=== PATIENT | male | born 1950 | race Caucasian/White ===

== ENCOUNTER 2017-02-10 14:22 | Inpatient (IN) | payer MEDICARE, BC ==
[~2017-02-10] VITALS: Ht 175.3 cm; Wt 82.3 kg
[~2017-02-10 14:22] MED LIST: HYDR-2768 PO; NIAC500 PO; TELM40 PO; TRIL135C PO
--- NOTE | 2017-02-15 12:40 | MH ---
cc: Yovana QUEEN M.D. DATE OF ADMISSION 02/17/2017 ADMITTING DIAGNOSIS Severe osteoarthritic degeneration right knee now being admitted for right total knee arthroplasty. ADMISSION HISTORY AND PHYSICAL This pleasant 67-year-old diabetic male is being admitted today for right total knee arthroplasty due to severe painful osteoarthritic degeneration right knee. OTHER PAST HISTORY He chronic neck and back pain and sees a chiropractor for his neck with some weakness the left upper extremity. He also has diabetes and hypertension. CURRENT MEDICATIONS Include: 1. Telmisartan 2. Niacin 3. Glyburide 4. Metformin 5. Hydrochlorothiazide 6. Aleve which was stopped before surgery. PREVIOUS SURGERIES Includes left knee arthroscopy several years ago. REVIEW OF SYSTEMS Noncontributory FAMILY HISTORY Noncontributory SOCIAL HISTORY He does not smoke and he does drink some alcohol. ALLERGIES He has no known allergies. PHYSICAL EXAMINATION We find a 67-year male well-developed, well-nourished oriented x3 complaining of pain in his right knee. VITAL SIGNS: Blood pressure 138/90, pulse 62 and regular, respirations 28, temperature 97.6, pulse oximetry 96% on room air. HEENT: Eyes PERRL, EOMI. Ears, nose, mouth clear. NECK: Supple. LUNGS: Clear. HEART: Regular rate. ABDOMEN: Soft. Positive bowel sounds, nontender. EXTREMITIES: Reveal his right knee to have crepitance on range of motion, some genu varus deformity noted. He is otherwise neurovascularly to his toes. IMPRESSION AT THIS TIME Severe painful osteoarthritic degeneration right knee. PLAN Admission for right total knee arthroplasty today. The patient given prescription for postoperative pain and anticoagulation control in the office. He plans on going home after his stay in the hospital and he understands he is to use Hibiclens scrub and Bactroban preoperatively. MD ZOE Coronel/LOWELL /12:16 PM /12:25 PM
[2017-02-16] MEDS ORDERED: GLYB2.5T3 PO (09:30)
[2017-02-16] MEDS ORDERED: FENO105T4 PO (09:30)
[2017-02-16] MEDS ORDERED: TELM1TAB PO (09:30)
[2017-02-16] MEDS ORDERED: METF500T PO (09:30)
[2017-02-16] MEDS ORDERED: NIAC1TAB5 PO (09:30)
[2017-02-16] MEDS ORDERED: HYDR25TA5 PO (09:30)
[2017-02-17] VITALS: BP 162/93; PULSE 91; RESP 20; TEMP 97.7; O2SAT 100
[2017-02-17] MEDS ORDERED: SODIUM CHLORID 0.9% 500 ML IV PRN (05:30)
[2017-02-17] MEDS ORDERED: POVIDONE IODINE 5% (ANTISEPSIS KIT) 4 APPLICATIONS EACH NARE PRN (05:30)
[2017-02-17] MEDS ORDERED: METOPROLOL TARTRATE 25 MG TAB PO PRN (05:30)
[2017-02-17] MEDS ORDERED: CHLORHEXIDINE GLUCONATE 2 % 1 PACK (2 CLOTHS) TOPICAL PRN (05:30)
[2017-02-17] MEDS ORDERED: LACTATED RINGER'S 1000 ML IV PRN (05:30)
[2017-02-17] MEDS ORDERED: INSULIN HUMAN REGULAR 1,000 UNITS/10 ML VIAL SQ PRN (05:30)
[2017-02-17 06:00] VITALS: BP 159/98; PULSE 76; RESP 18; TEMP 98; O2SAT 99
[2017-02-17] MEDS: VANCOMYCIN 1000 MG/NS 250 ML (for <70 kg) IV SCH ×4 (06:11→06:48)
[2017-02-17] MEDS ORDERED: ceFAZolin 2 GM PREMIX 50 ML IV SCH (07:00)
[2017-02-17] MEDS ORDERED: BUPIVACAINE LIPOSO PF 1.3% INJ 20 ML, BUPIVACAINE PF 0.25% INJ 20 ML in SODIUM CHLORIDE... P-ARTICULR SCH (07:00)
[2017-02-17] MEDS ORDERED: ceFAZolin INJ 1,000 MG VIAL ONE (07:03)
[2017-02-17] MEDS ORDERED: ACETAMINOPHEN 1000 MG/100 ML VIAL IV ONE (07:20)
[2017-02-17] MEDS ORDERED: FAMOTIDINE 20 MG/2 ML VIAL ONE (07:21)
[2017-02-17] MEDS ORDERED: DEXAMETHASONE SOD PHOS 4 MG/ML VIAL ONE (07:21)
[2017-02-17] MEDS ORDERED: SUGAMMADEX SODIUM 200 MG/2 ML VIAL IV PUSH ONE ×2 (07:21)
[2017-02-17] MEDS ORDERED: ARTIFICIAL TEARS OPTH OINT 3.5 APPLIC/3.5 GM TUBO ONE (07:21)
--- NOTE | 2017-02-17 07:59 | HHI.FF ---
Face to Face Verification Diagnosis: (1) Status post total right knee replacement Physical Therapy Gait training Knee: Total knee, Protocol: Right, Full weight bearing Nursing RN: 3 days/week x 2 weeks Nursing: Thai teaching, Dressing changes Dressing Changes: Daily dressing change, 4x4s, Gauze, Paper tape I have seen patient Santi Cummings on 02/17/17. My clinical findings support the need for the requested home health care services because: Limited ability to care for self High risk of falls I certify that my clinical findings support that this patient is homebound because: Unsafe to leave home unassisted Yovana Bobby MD Feb 17, 2017 07:59
[2017-02-17] MEDS ORDERED: NALOXONE HCL 0.4 MG/ML AMP IV PRN ×2 (08:00)
[2017-02-17] MEDS ORDERED: Post-op Orders (for Pharmacy) MISC XX ONE (08:00)
[2017-02-17] MEDS ORDERED: CPMMACHINE (08:00)
[2017-02-17] MEDS ORDERED: SODIUM CHLORIDE 0.9% FLUSH 5 ML FLUSH IVF PRN (08:00)
[2017-02-17] MEDS ORDERED: diphenhydrAMINE HCL 50 MG/ML VIAL IV PRN (08:00)
[2017-02-17] MEDS ORDERED: ACETAMINOPHEN 325 MG TAB PO PRN (08:00)
[2017-02-17] MEDS ORDERED: MISC-163 (08:00)
[2017-02-17] MEDS ORDERED: TRANEXAMIC ACID INJ 807 MG in SODIUM CHLORIDE 0.9% INJ 100 ML IV SCH ×2 (08:00→11:00)
[2017-02-17] MEDS ORDERED: ONDANSETRON HCL 4 MG/2 ML VIAL IVP PRN (08:00)
[2017-02-17] MEDS ORDERED: TEMAZEPAM 15 MG CAP PO PRN (08:00)
[2017-02-17] MEDS ORDERED: WALKER WHEELS/F1 MIS (08:00)
[2017-02-17] MEDS ORDERED: TRANEXAMIC ACID INJ 0 MG in SODIUM CHLORIDE 0.9% INJ 100 ML IV SCH (08:00)
[2017-02-17] MEDS ORDERED: TELMISARTAN 40 MG PO SCH (09:00)
[2017-02-17] MEDS ORDERED: FENOFIBRIC ACID 135 MG PO SCH (09:00)
[2017-02-17] MEDS: NIACIN 500 MG EXTENDED RELEASE TAB PO SCH ×3 (09:00→19:46)
[2017-02-17] MEDS ORDERED: HYDROCHLOROTHIAZIDE 25 MG TAB PO SCH (09:00)
[2017-02-17] MEDS: HYDROCHLOROTHIAZIDE 25 MG TAB PO SCH (09:00)
[2017-02-17] MEDS: FENOFIBRATE 145 MG TAB PO SCH (09:00)
[2017-02-17] MEDS: LOSARTAN 50 MG TAB PO SCH (10:00)
[2017-02-17] MEDS ORDERED: DO NOT ADM ANY ANTICOAGULANT DRUGS PRN (10:46)
[2017-02-17] MEDS: MORPHINE SULFATE 30 MG/30 ML PCA IV SCH (10:55)
[2017-02-17] MEDS ORDERED: MIDAZOLAM HCL 2 MG/2 ML VIAL ONE (11:01)
[2017-02-17] MEDS ORDERED: fentaNYL CITRATE 250 MCG/5 ML AMP ONE (11:02)
[2017-02-17] MEDS: LACTATED RINGER'S 1000 ML INJ 1,000 ML IV SCH ×2 (11:06→19:46)
--- NOTE | 2017-02-17 11:41 | RADRPT ---
EXAM DATE/TIME: 02/17/2017 12:23 [facility] COMPARISON: No previous studies available for comparison. INDICATIONS : Post-op right knee. MEDICAL HISTORY : None. SURGICAL HISTORY : None. ENCOUNTER: Initial ACUITY: 1 day PAIN SCORE: 0/10 LOCATION: Right Knee. FINDINGS: AP and lateral views of the knee following arthroplasty reveals a prosthesis in anatomic alignment. F racture is not appreciated. Surgical drain is evident CONCLUSION: Status post total knee arthroplasty. Brendan Carrasco MD FACR Board Certified Radiologist. This report was verified electronically.
[2017-02-17] MEDS ORDERED: PHENYLEPH/NS 1000 MCG/10 ML SYR IV ONE (12:00)
[2017-02-17] MEDS ORDERED: NEOSTIGMINE 3 MG/3 ML SYR IV ONE (12:00)
[2017-02-17] MEDS ORDERED: PROPOFOL 200 MG/20 ML AMP IV ONE (12:00)
[2017-02-17 13:30] VITALS: BP 157/84; PULSE 94; RESP 16; TEMP 97.7; O2SAT 98
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
[2017-02-17] MEDS: PCA - TOTAL MG MORPHINE DELIVERED PER SHIFT SCH ×2 (14:00→22:00)
[2017-02-17 16:00] VITALS: BP 148/88; PULSE 87; RESP 16; TEMP 97.5; O2SAT 96
[2017-02-17] MEDS: glyBURIDE 2.5 MG TAB PO SCH (16:57)
[2017-02-17] MEDS: metFORMIN HCL 500 MG TAB PO SCH (17:02)
[2017-02-17 19:05] VITALS: O2SAT 95
[2017-02-17] MEDS: SODIUM CHLORIDE 0.9% FLUSH 5 ML FLUSH IVF SCH (19:46)
[2017-02-17 20:00] VITALS: BP 163/88; PULSE 82; RESP 22; TEMP 97.7; O2SAT 100
[2017-02-17] MEDS ORDERED: NIACIN 1000 MG PO SCH (21:00)
[2017-02-18] VITALS (7 sets, daily range): BP systolic 143–177; BP diastolic 82–98; PULSE 79–94; RESP 16–20; TEMP 96.6–99.9; O2SAT 96–100
[2017-02-18] MEDS: ACETAMINOPHEN/HYDROcodone 325 MG/7.5 MG TAB PO PRN ×5 (00:01→18:38)
[2017-02-18] MEDS: CHLORHEXIDINE GLUCONATE 4% SOLN 120 ML BTL TOPICAL SCH (01:55)
[2017-02-18 05:18] LABS: HEMATOCRIT 31.5 % (39.0-51.0); REVIEW FLAG FINAL
[2017-02-18] MEDS: PCA - TOTAL MG MORPHINE DELIVERED PER SHIFT SCH ×3 (06:00→21:38)
[2017-02-18] MEDS: glyBURIDE 2.5 MG TAB PO SCH ×2 (06:09→16:29)
[2017-02-18] MEDS: LACTATED RINGER'S 1000 ML INJ 1,000 ML IV SCH (08:55)
[2017-02-18] MEDS: FENOFIBRATE 145 MG TAB PO SCH (08:58)
[2017-02-18] MEDS: SODIUM CHLORIDE 0.9% FLUSH 5 ML FLUSH IVF SCH ×2 (09:00→21:00)
[2017-02-18] MEDS: metFORMIN HCL 500 MG TAB PO SCH ×2 (09:00→16:29)
[2017-02-18] MEDS: LOSARTAN 50 MG TAB PO SCH (09:00)
[2017-02-18] MEDS: NIACIN 500 MG EXTENDED RELEASE TAB PO SCH ×3 (09:00→21:36)
[2017-02-18] MEDS: HYDROCHLOROTHIAZIDE 25 MG TAB PO SCH (09:00)
--- NOTE | 2017-02-18 09:15 | PD.ORT.PN ---
Subjective Subjective Remarks pt comfortable as far as knee is concerned but having pain again in left upper extremity and neck. Dr Winkler consulted. Objective Vitals Vital Signs Date Time Temp Pulse Resp B/P Pulse Ox O2 Delivery O2 Flow Rate FiO2 02/18/17 08:50 98.1 79 18 143/82 96 02/18/17 06:00 17 02/18/17 04:00 98.0 82 16 165/89 100 02/18/17 00:00 98.7 91 20 162/93 100 02/17/17 22:00 17 02/17/17 20:00 97.7 82 22 163/88 100 02/17/17 19:43 100 Nasal Cannula 2.00 02/17/17 19:05 95 Nasal Cannula 3.00 02/17/17 16:00 97.5 87 16 148/88 96 02/17/17 13:30 97.7 94 16 157/84 98 02/17/17 13:00 85 13 145/88 99 Nasal Cannula 2 02/17/17 12:30 98.3 99 15 149/87 99 Nasal Cannula 2 02/17/17 12:00 91 13 142/90 99 Nasal Cannula 2 02/17/17 11:45 93 14 139/86 99 Nasal Cannula 2 02/17/17 11:30 96 13 146/87 99 Nasal Cannula 2 02/17/17 11:15 97 12 159/97 99 Nasal Cannula 2 02/17/17 11:00 95 18 128/78 100 Nasal Cannula 2 02/17/17 10:55 12 02/17/17 10:45 99.2 102 15 124/70 98 Nasal Cannula 3 I/O 02/17/17 02/17/17 02/17/17 02/18/17 02/18/17 02/18/17 07:00 15:00 23:00 07:00 15:00 23:00 Intake Total 1790 ml 1257 ml 801 ml Output Total 1000 ml 300 ml 725 ml Balance 790 ml 957 ml 76 ml Intake Oral 290 ml 480 ml 240 ml IV Total 777 ml 561 ml Other 1500 ml Output Urine Total 800 ml 300 ml 725 ml Estimated Blood Loss 200 ml # Voids 3 # Bowel Movements 0 0 0 Result Diagram: 02/18/17 0456 Objective Remarks dressing dry and intact. NV intact to lower extremities. Assessment & Plan Ortho Post Op Day #: 1 Problem List: Assessment and Plan OOB,PT, MRI of neck per neurosurgery. Yovana Bobby MD Feb 18, 2017 09:15
--- NOTE | 2017-02-18 10:30 | RADRPT ---
EXAM DATE/TIME: 02/18/2017 09:36 [facility] COMPARISON: No previous studies available for comparison. INDICATIONS : Radiculopathy. Left upper extremity pain. MEDICAL HISTORY : Hypertension. Diabetes mellitus type 2. Hypercholesterolemia. SURGICAL HISTORY : Rotator cuff, right. ENCOUNTER: Initial ACUITY: > 1 year PAIN SCORE: 4/10 LOCATION: [facility] TECHNIQUE: Multiplanar, multisequence MRI examination of the cervical spine was performed. FINDINGS: VERTEBRAE: Normal vertebral body height. Homogeneous marrow signal. ALIGNMENT: There is loss of the normal cervical lordosis with kyphosis identified within the upper cervical spin e. There is narrowing of the cervical spine from the level of C3-C6. CORD: Normal configuration and signal. POST FOSSA: The cerebellar tonsils are normal in position. C2-C3: The thecal sac has a normal configuration. There is no evidence of disc herniation or spinal canal s tenosis. . Moderate right-sided facet degenerative change causing moderate right-sided neuroforamina l narrowing. C3-C4: There is disc desiccation and disc space narrowing with anterior and posterior disc osteophytes prese nt. The posterior disc osteophyte causes mild narrowing of the spinal canal and the dimension and sev ere left-sided neural foraminal narrowing. Mild right-sided neural foraminal narrowing. C4-C5: Disc desiccation and disc space narrowing with a broad-based posterior disc osteophyte complex. There is minimal narrowing of the spinal canal at this level but moderate to severe bilateral neural matilde inal narrowing. C5-C6: Disc desiccation disc space narrowing with a moderate sized posterior disc osteophyte complex causing moderate narrowing of the spinal canal and severe bilateral neural foraminal narrowing. There are mo derate bilateral facet degenerative changes seen at this level. C6-C7: Disc desiccation and disc space narrowing with the posterior disc osteophyte complex causing moderate narrowing of the spinal canal in AP dimension and bilateral severe neural foraminal narrowing. C7-T1: The thecal sac has a normal configuration. There is no evidence of disc herniation or spinal canal s tenosis. The neural foramina are patent bilaterally. CONCLUSION: Multilevel degenerative change most severe at the level of C5/C6. Holly Cotter MD on February 18, 2017 at 10:24 Board Certified Radiologist. This report was verified electronically.
[2017-02-18] MEDS: ENOXAPARIN SODIUM 30 MG/0.3 ML SYRINGE SQ SCH ×2 (10:39→21:35)
--- NOTE | 2017-02-18 12:09 | PD.CONS ---
HPI Service [facility] Consult Requested By Orthopedic surgery Reason for Consult Medical management Primary Care Physician Carmela Ramirez Jr, MD Diagnoses: History of Present Illness 67-year-old male with a history of right severe OA of the knee who despite medical management as well as physical therapy and intramuscular steroid injection and she needs to have severe right knee pain affecting daily living of activity, underwent right total knee arthroplasty 02/17/17. Patient also has a chronic neck pain associated with left arm radiculopathy for which neurosurgery has been consulted. He was seen in his room on postoperative day 1 , denies any significant right knee pain and reported that he has been up and ambulated at least 75 feet. Review of Systems Other 12 systems reviewed and are negative except for the one mentioned in the history of present illness Past Family Social History Allergies: Coded Allergies: No Known Allergies (Verified , 02/17/17) Past Medical History Hypertension Diabetes type 2 Osteoarthritis Past Surgical History Status post right total knee arthroplasty 02/17/17 Reported Medications 1. Telmisartan 2. Niacin 3. Glyburide 4. Metformin 5. Hydrochlorothiazide 6. Aleve Family History Noncontributory Social History Patient denies tobacco, alcohol or illicit drug intake Physical Exam Vital Signs Vital Signs Date Time Temp Pulse Resp B/P Pulse Ox O2 Delivery O2 Flow Rate FiO2 02/18/17 08:50 98.1 79 18 143/82 96 02/18/17 06:00 17 02/18/17 04:00 98.0 82 16 165/89 100 02/18/17 00:00 98.7 91 20 162/93 100 02/17/17 22:00 17 02/17/17 20:00 97.7 82 22 163/88 100 02/17/17 19:43 100 Nasal Cannula 2.00 02/17/17 19:05 95 Nasal Cannula 3.00 02/17/17 16:00 97.5 87 16 148/88 96 02/17/17 13:30 97.7 94 16 157/84 98 02/17/17 13:00 85 13 145/88 99 Nasal Cannula 2 02/17/17 12:30 98.3 99 15 149/87 99 Nasal Cannula 2 Physical Exam GENERAL: This is a well-nourished, well-developed patient, in no apparent distress. SKIN: No rashes, ecchymoses or lesions. Cool and dry. HEAD: Atraumatic. Normocephalic. No temporal or scalp tenderness. EYES: Pupils equal round and reactive. Extraocular motions intact. No scleral icterus. No injection or drainage. ENT: Nose without bleeding, purulent drainage or septal hematoma. Throat without erythema, tonsillar hypertrophy or exudate. Uvula midline. Airway patent. NECK: Trachea midline. No JVD or lymphadenopathy. Supple, nontender, no meningeal signs. CARDIOVASCULAR: Regular rate and rhythm without murmurs, gallops, or rubs. RESPIRATORY: Clear to auscultation. Breath sounds equal bilaterally. No wheezes , rales, or rhonchi. GASTROINTESTINAL: Abdomen soft, non-tender, nondistended. No hepato-splenomegaly , or palpable masses. No guarding. MUSCULOSKELETAL: Extremities without clubbing, cyanosis, or edema. No joint tenderness, effusion, or edema noted. No calf tenderness. Negative Homans sign bilaterally.s/p right TKA; dressing in place NEUROLOGICAL: Awake and alert. Cranial nerves II through XII intact. Motor and sensory grossly within normal limits. Five out of 5 muscle strength in all muscle groups. Normal speech. Laboratory Laboratory Tests Test 02/18/17 04:56 Hemoglobin 10.7 Hematocrit 31.5 Result Diagram: 02/18/17 0456 Imaging Last Impressions Cervical Spine MRI 02/18/17 0000 Signed Impressions: Service Date/Time: Saturday, February 18, 2017 09:36 - CONCLUSION: Multilevel degenerative change most severe at the level of C5/C6. Holly Cotter MD Knee X-Ray 02/17/17 0755 Signed Impressions: Service Date/Time: Friday, February 17, 2017 12:23 - CONCLUSION: Status post total knee arthroplasty. Brendan Carrasco MD Assessment and Plan Assessment and Plan 67-year-old man with 1-Right total knee OA: Status post right total knee arthroplasty 02/17/17, management per orthopedic surgery. Continue current postop care. PT consult to treat and eval. Monitor for postop anemia 2-Neck neck pain with left arm radiculopathy: Appreciate input from neurosurgery , cervical spine MRI noted and review with finding of Multilevel degenerative change most severe at the level of C5/C6 3-Diabetes type 2: Continue current oral hypoglycemic agents including metformin and glyburide 4-Hypertension: On hydrochlorothiazide and Telmisartan 5-Hyperlipidemia: Continue TriCor 6-DVT prophylaxis: Lovenox Thank you For this consultation Code Status Full code Discussed Condition With Patient Bandar Blanc MD Feb 18, 2017 12:09
[2017-02-18] MEDS: MORPHINE SULFATE 30 MG/30 ML PCA IV SCH (14:00)
[2017-02-18] MEDS: MAGNESIUM HYDROXIDE SUSP 30 ML CUP PO PRN (14:21)
[2017-02-18] MEDS ORDERED: ENALAPRILAT 1.25 MG/ML VIAL IV PUSH PRN (18:30)
[2017-02-18] MEDS: cloNIDine HCL 0.2 MG TAB PO PRN (18:35)
[2017-02-18] MEDS: MULTIVITAMINS/MINERALS THERAPEUTIC TAB PO SCH (21:00)
[2017-02-18] MEDS: DOCUSATE SODIUM 100 MG CAP PO SCH (21:35)
[2017-02-19] VITALS (7 sets, daily range): BP systolic 109–157; BP diastolic 71–98; PULSE 73–93; RESP 17–18; TEMP 96.4–98.9; O2SAT 98–100
[2017-02-19] MEDS: MAGNESIUM HYDROXIDE SUSP 30 ML CUP PO PRN (03:41)
[2017-02-19] MEDS: PCA - TOTAL MG MORPHINE DELIVERED PER SHIFT SCH ×3 (04:02→22:00)
[2017-02-19] MEDS: ACETAMINOPHEN/HYDROcodone 325 MG/7.5 MG TAB PO PRN ×4 (04:04→19:57)
[2017-02-19] MEDS: CHLORHEXIDINE GLUCONATE 4% SOLN 120 ML BTL TOPICAL SCH (05:45)
[2017-02-19 05:58] LABS: HEMATOCRIT 29.5 % (39.0-51.0); REVIEW FLAG FINAL
[2017-02-19] MEDS: glyBURIDE 2.5 MG TAB PO SCH ×2 (07:00→17:17)
[2017-02-19] MEDS: NIACIN 500 MG EXTENDED RELEASE TAB PO SCH ×3 (09:00→22:51)
[2017-02-19] MEDS: SODIUM CHLORIDE 0.9% FLUSH 5 ML FLUSH IVF SCH ×2 (09:00→21:00)
[2017-02-19] MEDS: LACTATED RINGER'S 1000 ML INJ 1,000 ML IV SCH ×2 (09:55→22:25)
--- NOTE | 2017-02-19 10:07 | HHI.PR ---
Subjective Remarks Patient seen and examined complains of right knee aching otherwise stable currently normotensive Objective Vitals Vital Signs Date Time Temp Pulse Resp B/P Pulse Ox O2 Delivery O2 Flow Rate FiO2 02/19/17 08:52 99 Nasal Cannula 21 02/19/17 08:00 98.1 91 18 109/72 98 02/19/17 04:10 98.9 78 17 120/71 100 02/19/17 04:02 18 02/19/17 00:20 96.4 81 17 126/77 99 02/18/17 21:38 19 02/18/17 20:45 96.6 94 17 177/92 96 02/18/17 16:00 99.6 91 18 162/98 98 02/18/17 14:05 18 02/18/17 14:00 18 02/18/17 12:06 96 Nasal Cannula 2.00 02/18/17 12:00 99.9 80 18 158/91 98 I/O 02/18/17 02/18/17 02/18/17 02/19/17 02/19/17 02/19/17 07:00 15:00 23:00 07:00 15:00 23:00 Intake Total 801 ml 1190 ml 840 ml 480 ml Output Total 725 ml 800 ml 750 ml Balance 76 ml 390 ml 840 ml -270 ml Intake Oral 240 ml 960 ml 840 ml 480 ml IV Total 561 ml 230 ml Output Urine Total 725 ml 800 ml 750 ml # Voids 4 # Bowel Movements 0 0 0 Result Diagram: 02/19/17 0516 Imaging Last Impressions Cervical Spine MRI 02/18/17 0000 Signed Impressions: Service Date/Time: Saturday, February 18, 2017 09:36 - CONCLUSION: Multilevel degenerative change most severe at the level of C5/C6. Holly Cotter MD Knee X-Ray 02/17/17 0755 Signed Impressions: Service Date/Time: Friday, February 17, 2017 12:23 - CONCLUSION: Status post total knee arthroplasty. Brendan Carrasco MD Objective Remarks GENERAL: sitting in a chair and NAD SKIN: Warm and dry. HEAD: Normocephalic. EYES: No scleral icterus. No injection or drainage. NECK: Supple, trachea midline. No JVD or lymphadenopathy. CARDIOVASCULAR: Regular rate and rhythm without murmurs, gallops, or rubs. RESPIRATORY: Breath sounds equal bilaterally. No accessory muscle use. GASTROINTESTINAL: Abdomen soft, non-tender, nondistended. MUSCULOSKELETAL: No cyanosis, or edema. right knee repair-neurovascular intact BACK: Nontender without obvious deformity. No CVA tenderness. A/P Assessment and Plan 67-year-old man with 1-Right total knee OA: Status post right total knee arthroplasty 02/17/17, management per orthopedic surgery. Continue current postop care. PT to treat and eval. Monitor for postop anemia 2-Neck neck pain with left arm radiculopathy: Appreciate input from neurosurgery , cervical spine MRI noted and review with finding of Multilevel degenerative change most severe at the level of C5/C6 3-Diabetes type 2: Continue current oral hypoglycemic agents including metformin and glyburide 4-Hypertension: continue hydrochlorothiazide and Telmisartan 5-Hyperlipidemia: Continue TriCor 6-DVT prophylaxis: Bandar Aguirre MD Feb 19, 2017 10:07
[2017-02-19] MEDS ORDERED: BACITRACIN OINT 0.9 GM PKT TOP PRN (10:15)
--- NOTE | 2017-02-19 10:23 | PD.ORT.PN ---
Subjective Subjective Remarks pt comfortable as far as knee is concerned but having pain again in left upper extremity and neck again today. Dr Winkler consulted. Objective Vitals Vital Signs Date Time Temp Pulse Resp B/P Pulse Ox O2 Delivery O2 Flow Rate FiO2 02/19/17 08:52 99 Nasal Cannula 21 02/19/17 08:00 98.1 91 18 109/72 98 02/19/17 04:10 98.9 78 17 120/71 100 02/19/17 04:02 18 02/19/17 00:20 96.4 81 17 126/77 99 02/18/17 21:38 19 02/18/17 20:45 96.6 94 17 177/92 96 02/18/17 16:00 99.6 91 18 162/98 98 02/18/17 14:05 18 02/18/17 14:00 18 02/18/17 12:06 96 Nasal Cannula 2.00 02/18/17 12:00 99.9 80 18 158/91 98 I/O 02/18/17 02/18/17 02/18/17 02/19/17 02/19/17 02/19/17 07:00 15:00 23:00 07:00 15:00 23:00 Intake Total 801 ml 1190 ml 840 ml 480 ml Output Total 725 ml 800 ml 750 ml Balance 76 ml 390 ml 840 ml -270 ml Intake Oral 240 ml 960 ml 840 ml 480 ml IV Total 561 ml 230 ml Output Urine Total 725 ml 800 ml 750 ml # Voids 4 # Bowel Movements 0 0 0 Result Diagram: 02/19/17 0516 Objective Remarks dressing dry and intact. NV intact to lower extremities. Assessment & Plan Ortho Post Op Day #: 2 Problem List: Assessment and Plan OOB,PT, Home tomorrow. Yovana Bobby MD Feb 19, 2017 10:22
--- NOTE | 2017-02-19 10:30 | HHI.DS ---
Discharge Summary Admission Date Feb 17, 2017 at 05:06 Discharge Date: Feb 20, 2017 Admitting Diagnosis osteoarthritic degeneration right knee Diagnosis: (1) Status post total right knee replacement Diagnosis: Principal Brief History This is a 67 year old male patient CBC/BMP: 02/19/17 0516 Significant Findings Laboratory Tests Test 02/18/17 02/19/17 04:56 05:16 Hemoglobin 10.7 GM/DL 10.6 GM/DL (13.0-17.0) (13.0-17.0) Hematocrit 31.5 % 29.5 % (39.0-51.0) (39.0-51.0) PE at Discharge dressing dry and intact. NV intact to lower extremities. Hospital Course pt underwent a right total knee arthroplasty on day of admission. He received a course of prophylactic IV antibiotics and started on anticoagulation therapy within 23 hours of surgery. He remained afebrile with stable vital signs. He complained of pain in right arm and neck and underwent neurosurgical consult for same. He began OOB with PT and daily wound care. He tolerated PO pain meds and food and fluid well and was discharged on POD #3 to home in good condition with HHC and PT and instructions to followup with Dr Bobby and Dr Winkler. Pt Condition on Discharge: Good Discharge Disposition: Disch w/ Home Health Serv Discharge Instructions Diet Instructions: Diabetic Diet Activities You Can Perform: Weight Bearing as Roy[place], Shower Only-No Bath Activities to Avoid: Bathing, Driving Yovana Bobby MD Feb 19, 2017 10:30
[2017-02-19] MEDS: FENOFIBRATE 145 MG TAB PO SCH (10:33)
[2017-02-19] MEDS: metFORMIN HCL 500 MG TAB PO SCH ×2 (10:33→17:17)
[2017-02-19] MEDS: LOSARTAN 50 MG TAB PO SCH (10:33)
[2017-02-19] MEDS: MULTIVITAMINS/MINERALS THERAPEUTIC TAB PO SCH ×2 (10:33→22:50)
[2017-02-19] MEDS: HYDROCHLOROTHIAZIDE 25 MG TAB PO SCH (10:33)
[2017-02-19] MEDS: DOCUSATE SODIUM 100 MG CAP PO SCH ×2 (10:34→22:50)
[2017-02-19] MEDS: ENOXAPARIN SODIUM 30 MG/0.3 ML SYRINGE SQ SCH ×2 (10:35→22:52)
[2017-02-20 00:20] VITALS: BP 130/78; PULSE 84; RESP 17; TEMP 99.2; O2SAT 99
[2017-02-20] MEDS: ACETAMINOPHEN/HYDROcodone 325 MG/7.5 MG TAB PO PRN ×3 (00:52→14:17)
[2017-02-20] MEDS: PCA - TOTAL MG MORPHINE DELIVERED PER SHIFT SCH ×2 (06:00→08:47)
[2017-02-20] MEDS: glyBURIDE 2.5 MG TAB PO SCH ×2 (07:00→16:20)
[2017-02-20 08:00] VITALS: BP 140/83; PULSE 86; RESP 19; TEMP 99.2; O2SAT 100
[2017-02-20] MEDS: LOSARTAN 50 MG TAB PO SCH (08:46)
[2017-02-20] MEDS: FENOFIBRATE 145 MG TAB PO SCH (08:46)
[2017-02-20] MEDS: HYDROCHLOROTHIAZIDE 25 MG TAB PO SCH (08:46)
[2017-02-20] MEDS: metFORMIN HCL 500 MG TAB PO SCH ×2 (08:46→16:20)
[2017-02-20] MEDS: MULTIVITAMINS/MINERALS THERAPEUTIC TAB PO SCH (08:46)
[2017-02-20] MEDS: NIACIN 500 MG EXTENDED RELEASE TAB PO SCH (08:47)
[2017-02-20] MEDS: LACTATED RINGER'S 1000 ML INJ 1,000 ML IV SCH (08:47)
[2017-02-20] MEDS: DOCUSATE SODIUM 100 MG CAP PO SCH (08:47)
[2017-02-20] MEDS: SODIUM CHLORIDE 0.9% FLUSH 5 ML FLUSH IVF SCH (08:47)
--- NOTE | 2017-02-20 10:55 | MP ---
cc: Yovana BOBBY M.D. DATE OF SURGERY: 02/17/2017 PREOPERATIVE DIAGNOSIS Osteoarthritic degeneration, right knee. POSTOPERATIVE DIAGNOSIS Osteoarthritic degeneration, right knee. SURGERY PERFORMED Right total knee arthroplasty using consensus knee system with ___ pre-made component cutting guide protocol. Sizes of the inserts were the femur was a size 6, the tibia size 4, tibial insert a size 10 and the patella size 3, 10 mm thickness with two batches of cobalt blue cement. SURGEON Dr. Bobby. L[employer] ANESTHESIA General intubation with block. PROCEDURE: After successful induction of anesthesia, the patient is placed on the operating room table in the supine position. The knee is prepped and draped in the usual manner. A tourniquet is inflated at the upper thigh and set to 300 mmHg pressure after exsanguination of the lower extremity. A longitudinal incision is made extending from 3 inches proximal to the superior pole of the patella, across the patella in longitudinal fashion, and down past the insertion of the tibial tubercle into the proximal tibia. The incision is carried down through subcutaneous tissue along the medial aspect of the patella and retinaculum, down through the capsule to expose the knee joint. The patella and patellar tendon are freed up enough to allow the patella to be inverted and retracted off the lateral side of the knee joint. The knee joint is left exposed. Small osteophytes are removed. All soft tissue is removed to allow proper position of the femoral and tibial cutting jig guide. The first femoral jig is then inserted along the distal end of the femur after first measuring to decide whether this is a small, medium, or large component. The notch is then drilled and the tibial cutting guide inserted into the femoral cutting guide, along with the ankle brace to allow for proper measurement of the tibial cutting surface that needed to be resected. Pins are inserted into the tibial cutting jig and femoral cutting jig to hold them in place. An oscillating saw is then used to resect the surface of the tibia. The surface of the tibia is then completely removed using sharp and blunt dissection. The anterior and posterior cuts of the femur are then made as well using an oscillating saw through the cutting guide. All guides are then removed and the varus/valgus angulation cutting guide applied to the femur for proper measurement of the proper amount of valgus. The anterior cutting guide for the femur is then inserted at the anterior femoral cuts made. Next, the first block trial is inserted into the femur to allow for proper condyle drill holes to be made which are then made followed by removal of the bone between the condyles using an oscillating saw as well as the bone removed at the most posterior surface of the condyle. After this, this guide is removed and the chamfer cuts made using the chamfer cutting guide from both anterior and posterior. Next, the femoral trial is then inserted, the tibial surface reflected anterior to expose the tibial surface and a tibial stem guide is inserted after first measuring for a standard, standard plus, large, or large plus surface to be used. After the stem is impacted the trial tibial surface is applied followed by the trial meniscal components. After full range of motion is found with the appropriate length meniscal components varying the patella is prepared by resecting the posterior aspect of the patella using an oscillating saw, inserting a trial. The trial is then removed and the cruciate cutting guide applied using the bur to cut the cruciate cuts. After cruciate cuts are made all trials are removed. The wound is irrigated copiously with antibiotic solution and Water Pik and the actual components inserted into place using the aforementioned components. After the cement has hardened and the components are found to have full range of motion with no instability. No tourniquet was utilized except for cementing which lasted 11 minutes total tourniquet time at 300 mmHg pressure. The deep fascia was approximated with running #2 Quill, subcutaneous tissue was approximated using interrupted 2-0 and 3-0 Monocryl sutures, Steri-Strips, sterile dressing and knee immobilizer. No drain was utilized. The patient tolerated the procedure well and left the operating room in satisfactory condition. ESTIMATED BLOOD LOSS: 200 ccs. COUNTS: Sponge and suture counts were correct. COMPONENTS: The components used were the aforementioned components. JMD ZOE Becerril/TRAVON /12:40 PM /10:32 AM
[2017-02-20] MEDS: ENOXAPARIN SODIUM 30 MG/0.3 ML SYRINGE SQ SCH (11:17)
[2017-02-20 12:00] VITALS: BP 135/91; PULSE 100; RESP 18; TEMP 98.9; O2SAT 98
[2017-02-20] MEDS ORDERED: LACTATED RINGER'S 1000 ML INJ 1,000 ML IV ONE (12:00)
[2017-02-20] MEDS ORDERED: ONDANSETRON HCL 4 MG/2 ML VIAL IV PUSH ONE (12:00)
--- NOTE | 2017-02-20 12:34 | HHI.PR ---
Subjective Remarks patient seen and examined Denies any right knee pain Only complains of left hand/arm pain Brother in the room Objective Vitals Vital Signs Date Time Temp Pulse Resp B/P Pulse Ox O2 Delivery O2 Flow Rate FiO2 02/20/17 08:00 99.2 86 19 140/83 100 02/20/17 00:20 99.2 84 17 130/78 99 02/19/17 22:00 18 02/19/17 20:45 98.9 93 17 142/87 98 02/19/17 16:00 98.8 88 18 157/98 98 02/19/17 14:00 18 I/O 02/19/17 02/19/17 02/19/17 02/20/17 02/20/17 02/20/17 07:00 15:00 23:00 07:00 15:00 23:00 Intake Total 480 ml 960 ml 600 ml 600 ml Output Total 750 ml 500 ml 400 ml Balance -270 ml 960 ml 100 ml 200 ml Intake Oral 480 ml 960 ml 600 ml 600 ml Output Urine Total 750 ml 500 ml 400 ml # Voids 5 # Bowel Movements 0 2 0 0 Result Diagram: 02/19/17 0516 Objective Remarks GENERAL: sitting in a chair and NAD SKIN: Warm and dry. HEAD: Normocephalic. EYES: No scleral icterus. No injection or drainage. NECK: Supple, trachea midline. No JVD or lymphadenopathy. CARDIOVASCULAR: Regular rate and rhythm without murmurs, gallops, or rubs. RESPIRATORY: Breath sounds equal bilaterally. No accessory muscle use. GASTROINTESTINAL: Abdomen soft, non-tender, nondistended. MUSCULOSKELETAL: No cyanosis, or edema. right knee repair-neurovascular intact BACK: Nontender without obvious deformity. No CVA tenderness. A/P Assessment and Plan 67-year-old man with 1-Right total knee OA: Status post right total knee arthroplasty 02/17/17, management per orthopedic surgery. Continue current care. PT to treat and eval. 2-Neck neck pain with left arm radiculopathy: Appreciate input from neurosurgery , cervical spine MRI noted and review with finding of Multilevel degenerative change most severe at the level of C5/C6. Will need surgery 3-Diabetes type 2: Continue current oral hypoglycemic agents including metformin and glyburide 4-Hypertension: continue hydrochlorothiazide and Telmisartan 5-Hyperlipidemia: Continue TriCor 6-DVT prophylaxis: Lovenox Discharge Planning d/c per Orthopedic surgery Bandar Blanc MD Feb 20, 2017 12:34
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
--- NOTE | 2017-02-20 13:25 | PD.ORT.PN ---
Subjective Subjective Remarks pt comfortable as far as knee is concerned but having pain again in left upper extremity and neck again today. Dr Winkler sending patient for nerve injection. Objective Vitals Vital Signs Date Time Temp Pulse Resp B/P Pulse Ox O2 Delivery O2 Flow Rate FiO2 02/20/17 08:00 99.2 86 19 140/83 100 02/20/17 00:20 99.2 84 17 130/78 99 02/19/17 22:00 18 02/19/17 20:45 98.9 93 17 142/87 98 02/19/17 16:00 98.8 88 18 157/98 98 02/19/17 14:00 18 I/O 02/19/17 02/19/17 02/19/17 02/20/17 02/20/17 02/20/17 07:00 15:00 23:00 07:00 15:00 23:00 Intake Total 480 ml 960 ml 600 ml 600 ml Output Total 750 ml 500 ml 400 ml Balance -270 ml 960 ml 100 ml 200 ml Intake Oral 480 ml 960 ml 600 ml 600 ml Output Urine Total 750 ml 500 ml 400 ml # Voids 5 # Bowel Movements 0 2 0 0 Result Diagram: 02/19/17 0516 Objective Remarks dressing dry and intact. NV intact to lower extremities. Assessment & Plan Ortho Post Op Day #: 3 Problem List: (1) Status post total right knee replacement Assessment and Plan OOB,PT, Home today after block. Yovana Bobby MD Feb 20, 2017 13:25
[2017-02-20 16:00] VITALS: BP 161/94; PULSE 93; RESP 16; TEMP 98; O2SAT 98
[2017-02-20] MEDS: cloNIDine HCL 0.2 MG TAB PO PRN (17:48)
== END 2017-02-20 20:57 | disposition home health service (06) | DRG 470 ==
LOC: HSDI 02-17 05:06 → N06B 02-17 13:08
PROVIDERS: ADMIT Surgery; ATTEND Surgery
PROC: 3E0T3CZ (ICD-10-PCS; 2017-02-17)
PROC: 0SRC0J9 Replacement of Right Knee Joint with Synthetic Substitute, Cemented, Open Approach (ICD-10-PCS; principal; 2017-02-17 07:40)
DX: M17.11 Unilateral primary osteoarthritis, right knee (principal); M48.02 Spinal stenosis, cervical region; I10 Essential (primary) hypertension; E11.9 Type 2 diabetes mellitus without complications; M54.12 Radiculopathy, cervical region; E78.5 Hyperlipidemia, unspecified; G89.29 Other chronic pain; Z79.84 Long term (current) use of oral hypoglycemic drugs
CPT/HCPCS: 36415; 72141; 73560; 80053; 81001; 82948; 85014; 85018; 85025; 85610; 85730; 86850; 86900; 86901; 93005; 94150; C1776; C9290; J0131; J0690; J1100; J1650; J2250; J2270; J2370; J2405; J2710; J3010; J3370; J7050; J7120; L1830

== ENCOUNTER → 2017-02-16 | Outpatient (CLI) | payer MEDICARE, BC ==
[~2017-02-16] MED LIST changes: +CPMMACHINE; +FENO105T4 PO; +GLYB2.5T3 PO; +HYDR25TA5 PO; +METF500T PO; +MISC-163; +NIAC1TAB5 PO; +TELM1TAB PO; +WALKER WHEELS/F1 MIS
[2017-02-16 09:47] LABS: BLOOD, URINE NEG (NEG); COMMENT (UR) CULT NOT INDICATED; CULTURE IF INDICATED CULT NOT INDICATED; GLUCOSE,URINE NEG (NEG); KETONE, URINE NEG (NEG); MUCUS URINE FEW /lpf (OCC); NITRITE,URINE NEG (NEG); SQUAMOUS EPITHELIAL CELL URINE <1 /hpf (0-5); URINE COLOR YELLOW (YELLW/STRAW)
[2017-02-16 09:50] LABS: AUTOMATED NEUTROPHIL # 4.2 TH/MM3 (1.8-7.7); BASOPHIL % 0.7 % (0.0-2.0); EOSINOPHIL # 0.1 TH/MM3 (0-0.4); EOSINOPHIL % 2.3 % (0.0-4.0); HEMATOCRIT 39.1 % (39.0-51.0); HEMO FLAGS DIFF FINAL; LYMPH % 18.9 % (9.0-44.0); LYMPHOCYTE # 1.1 TH/MM3 (1.0-4.8); MEAN CORPUSCULAR HEMOGLOBIN 30.2 PG (27.0-34.0); MONO % 5.9 % (0.0-8.0); NEUT % 72.2 % (16.0-70.0); PLATELET COUNT 187 TH/MM3 (150-450); RED CELL DISTRIBUTION WIDTH 12.9 % (11.6-17.2); WHITE BLOOD COUNT 5.8 TH/MM3 (4.0-11.0)
[2017-02-16 09:53] LABS: PROTHROMBIN TIME - PATIENT 10.6 SEC (9.8-11.6)
[2017-02-16 10:41] LABS: ALKALINE PHOSPHATASE 37 U/L (45-117); ALT (GPT) 25 U/L (12-78); ANION GAP 10 MEQ/L (5-15); AST (GOT) 28 U/L (15-37); BICARBONATE 25.1 MEQ/L (21.0-32.0); BLOOD UREA NITROGEN 19 MG/DL (7-18); CHLORIDE 106 MEQ/L (98-107); GLOMERULAR FILTRATION RATE 60 ML/MIN (>89); GLUCOSE,FASTING 114 MG/DL (74-99); POTASSIUM 4.2 MEQ/L (3.5-5.1); SODIUM (NA) 141 MEQ/L (136-145); TOTAL BILIRUBIN ADULT 0.4 MG/DL (0.2-1.0)
--- NOTE | 2017-02-16 12:43 | EKG ---
Date Performed: 02/16/2017 Time Performed: 09:23:29 PTAGE: 67 years EKG: Sinus rhythm NORMAL ECG NO PREVIOUS TRACING DOCTOR: Jordan Saenz Interpretating Date/Time 02/16/2017 12:40:40
== END ==
LOC: CPRE 09:01
PROVIDERS: ATTEND Surgery
DX: Z01.812 Encounter for preprocedural laboratory examination (principal); Z01.810 Encounter for preprocedural cardiovascular examination
CPT/HCPCS: 36415; 80053; 81001; 85025; 85610; 85730; 93005

== ENCOUNTER → 2017-12-12 | Outpatient (CLI) | payer MEDICARE ==
[~2017-12-12] MED LIST changes: +ALEV220T14 PO
[2017-12-12 08:53] LABS: HEMOGLOBIN 14.4 GM/DL (13.0-17.0); MEAN CELL VOLUME 89.5 FL (80.0-100.0); MEAN CORPUSCULAR HEMOGLOBIN 31.5 PG (27.0-34.0); MEAN CORPUSCULAR HGB CONC 35.2 % (32.0-36.0); MEAN PLATELET VOLUME 7.8 FL (7.0-11.0); PLATELET COUNT 211 TH/MM3 (150-450); RED BLOOD COUNT 4.58 MIL/MM3 (4.50-5.90); RED CELL DISTRIBUTION WIDTH 12.6 % (11.6-17.2); WHITE BLOOD COUNT 4.1 TH/MM3 (4.0-11.0)
[2017-12-12 08:58] LABS: BILIRUBIN, URINE NEG (NEG); BLOOD, URINE NEG (NEG); GLUCOSE,URINE NEG (NEG); KETONE, URINE NEG (NEG); MUCUS URINE FEW /lpf (OCC); NITRITE,URINE NEG (NEG); PH, URINE 5.5 (5.0-8.5); URINE COLOR YELLOW (YELLW/STRAW); URINE LEUKOCYTE ESTERASE NEG (NEG)
[2017-12-12 09:05] LABS: PROTHROMBIN TIME - PATIENT 10.5 SEC (9.8-11.6)
[2017-12-12 09:25] LABS: ALBUMIN 4.7 GM/DL (3.4-5.0); AST (GOT) 25 U/L (15-37); BICARBONATE 27.7 MEQ/L (21.0-32.0); BLOOD UREA NITROGEN 22 MG/DL (7-18); CALCIUM 9.8 MG/DL (8.5-10.1); CHLORIDE 101 MEQ/L (98-107); CREATININE 1.44 MG/DL (0.60-1.30); GLOMERULAR FILTRATION RATE 49 ML/MIN (>89); GLUCOSE,FASTING 133 MG/DL (74-99); SODIUM (NA) 136 MEQ/L (136-145)
[2017-12-12 09:26] LABS: ALT (GPT) 29 U/L (12-78)
[2017-12-12 09:28] LABS: ALKALINE PHOSPHATASE 39 U/L (45-117); TOTAL BILIRUBIN ADULT 0.5 MG/DL (0.2-1.0); TOTAL PROTEIN 8.4 GM/DL (6.4-8.2)
--- NOTE | 2017-12-13 00:22 | EKG ---
Date Performed: 12/12/2017 Time Performed: 08:35:08 PTAGE: 67 years EKG: Sinus bradycardia Normal ECG except for rate PREVIOUS TRACING : 02/16/2017 09.23 Compared to prior tracing, rate has decreased DOCTOR: Marito Kelly Interpretating Date/Time 12/13/2017 00:21:42
== END ==
LOC: CPRE 07:59
PROVIDERS: ATTEND Surgery
DX: Z01.810 Encounter for preprocedural cardiovascular examination (principal); Z01.812 Encounter for preprocedural laboratory examination; M79.609 Pain in unspecified limb
CPT/HCPCS: 36415; 80053; 81001; 85027; 85610; 85730; 93005

== ENCOUNTER 2017-12-18 05:24 | Inpatient (IN) | payer MEDICARE ==
--- NOTE | 2017-12-13 17:05 | MH ---
cc: Yovana QUEEN M.D. DATE OF ADMISSION 12/18/2017 ADMISSION DIAGNOSIS Osteoarthritic degeneration left knee now being admitted for left total knee arthroplasty. HISTORY OF THE PRESENT ILLNESS A pleasant 67-year-old diabetic male being admitted today for a left total knee arthroplasty due to severe painful osteoarthritic degeneration. PAST MEDICAL HISTORY Other past history: 1. He has a history of hypertension. 2. Diabetes type 2. 3. High cholesterol. CURRENT MEDICATIONS Include: 1. Telmisartan. 2. Niacin. 3. Glyburide. 4. Metformin. 5. Hydrochlorothiazide. 6. Aleve which stopped before surgery. PAST SURGICAL HISTORY Previous surgeries: 1. Right total knee arthroplasty. 2. Previous torn meniscus from left knee. REVIEW OF SYSTEMS Noncontributory. FAMILY HISTORY Noncontributory. SOCIAL HISTORY The patient does not smoke. Drinks some alcohol. ALLERGIES No known allergies. PHYSICAL EXAMINATION GENERAL: We find a 67-year-old male, well-developed, well-nourished, alert and oriented times three complaining of pain in the left knee. VITAL SIGNS: Blood pressure 119/77, pulse 61 and regular, respirations 15, temperature 98.1, pulse oximetry 98% on room air. HEENT: Eyes PERRL, EOMI. Ears, nose, mouth clear. NECK: Supple. LUNGS: Clear. Heart: Regular rate. ABDOMEN: Soft. Positive bowel sounds, nontender. EXTREMITIES: Reveal left knee to have crepitance on range of motion. Neurovascularly intact to his toes. IMPRESSION At this time is osteoarthritic degeneration of the left knee. PLAN Admission for left total knee arthroplasty today. The patient given prescription for postoperative pain and anticoagulation control in the office and plans on going home after surgical stay in the hospital. MD ZOE Coronel/KK /4:32 PM /4:43 PM 9
[~2017-12-18] VITALS: Ht 175.3 cm; Wt 88.9 kg
[~2017-12-18 05:24] MED LIST changes: -CPMMACHINE; -HYDR-2768 PO; -MISC-163; -NIAC500 PO; -TELM40 PO; -TRIL135C PO; -WALKER WHEELS/F1 MIS
[2017-12-18] MEDS ORDERED: VANCOMYCIN 1 GM/200 ML INJ 200 ML IV ONE (05:57)
[2017-12-18] MEDS ORDERED: CHLORHEXIDINE GLUCONATE 4% SOLN 120 ML BTL TOPICAL SCH (06:15)
[2017-12-18] MEDS ORDERED: LACTATED RINGER'S 1000 ML IV PRN (06:15)
[2017-12-18] MEDS ORDERED: METOPROLOL TARTRATE 25 MG TAB PO PRN (06:15)
[2017-12-18] MEDS ORDERED: EXPAREL PERI-ARTICULAR INJECTION (TOTAL VOL. 120 ML) P-ARTICULR SCH ×2 (06:15)
[2017-12-18] MEDS ORDERED: POVIDONE IODINE 5% (ANTISEPSIS KIT) 4 APPLICATIONS EACH NARE PRN (06:15)
[2017-12-18] MEDS ORDERED: SODIUM CHLORID 0.9% 500 ML IV PRN (06:15)
[2017-12-18] MEDS ORDERED: ceFAZolin 2 GM PREMIX 50 ML IV SCH (06:15)
[2017-12-18] MEDS ORDERED: CHLORHEXIDINE GLUCONATE 2 % 1 PACK (2 CLOTHS) TOPICAL PRN (06:15)
[2017-12-18] MEDS ORDERED: VANCOMYCIN 1000 MG/NS 250 ML (for <70 kg) IV SCH ×2 (06:15)
[2017-12-18] MEDS ORDERED: TRANEXAMIC ACID INJ 840 MG in SODIUM CHLORIDE 0.9% INJ 100 ML IV SCH ×4 (06:15)
[2017-12-18] MEDS ORDERED: ceFAZolin INJ 1,000 MG VIAL ONE (06:47)
[2017-12-18] MEDS ORDERED: BUPIVACAINE HCL PF 0.25% 30 ML VIAL ONE (07:04)
[2017-12-18] MEDS ORDERED: BUPIVACAINE LIPOSOME PF 1.3% 20 ML VIAL ONE (07:06)
[2017-12-18] MEDS ORDERED: DEXAMETHASONE SOD PHOS 4 MG/ML VIAL ONE (07:37)
--- NOTE | 2017-12-18 07:41 | HHI.FF ---
Face to Face Verification Diagnosis: (1) Status post total left knee replacement Physical Therapy Gait training Knee: Total knee, Protocol: Left, Full weight bearing Canvas Knee Splint: When in bed & 2 pillows btw thighs Nursing RN: 3 days/week x 2 weeks Nursing: Dressing changes Dressing Changes: Daily dressing change, 4x4s, Gauze, Paper tape I have seen patient Santi Cummings on 12/18/17. My clinical findings support the need for the requested home health care services because: Limited ability to care for self High risk of falls I certify that my clinical findings support that this patient is homebound because: Unsteady gait/balance Yovana Bobby MD Dec 18, 2017 07:40
[2017-12-18] MEDS ORDERED: CPMMACHINE (07:42)
[2017-12-18] MEDS ORDERED: ADJUSTABLE COMM1 MIS (07:42)
[2017-12-18] MEDS ORDERED: WALKER WHEELS/F1 MIS (07:42)
[2017-12-18] MEDS ORDERED: TRANEXAMIC ACID INJ 0 MG in SODIUM CHLORIDE 0.9% INJ 100 ML IV SCH (07:45)
[2017-12-18] MEDS ORDERED: Post-op Orders (for Pharmacy) XX ONE (07:45)
[2017-12-18] MEDS ORDERED: diphenhydrAMINE HCL 50 MG/ML VIAL IV PUSH PRN (07:45)
[2017-12-18] MEDS ORDERED: ONDANSETRON HCL 4 MG/2 ML VIAL IVP PRN (07:45)
[2017-12-18] MEDS ORDERED: NALOXONE HCL 0.4 MG/ML AMP IV PUSH PRN (07:45)
[2017-12-18] MEDS ORDERED: MORPHINE SULFATE 4 MG/ML INJ IV PUSH PRN (07:45)
[2017-12-18] MEDS: FENOFIBRATE 145 MG TAB PO SCH (09:00)
[2017-12-18] MEDS: LOSARTAN 50 MG TAB PO SCH (09:00)
[2017-12-18] MEDS ORDERED: metFORMIN HCL 500 MG TAB PO SCH (09:00)
[2017-12-18] MEDS: HYDROCHLOROTHIAZIDE 25 MG TAB PO SCH (09:00)
[2017-12-18] MEDS ORDERED: glyBURIDE 2.5 MG TAB PO SCH (09:00)
[2017-12-18] MEDS ORDERED: ROPIVACAINE 0.5% PF INJ 30 ML VIAL ONE (09:03)
--- NOTE | 2017-12-18 10:41 | HHI.PR ---
Immediate Post Op Note Procedure Date: Dec 18, 2017 Pre Op Diagnosis: severe painful osteoarthritic degeneration left knee Post Op Diagnosis: severe painful osteoarthritic degeneration Left knee Surgeon: Yovana Bobby MD Strap Folding Machine Operator(s): Hayley CEE Procedure: Total Left knee Arthroplasty Specimen(s) removed: none Estimated blood loss: 150 cc Anesthesia: General Drains: None IVF Urinary Output (mLs): 0 (NO ramos) Tourniquet time (min at mmHg) 62 mins at 300mmHg Patient to: PACU Patient Condition: Good Implant/Devices: SEE IMPLANT LOG (if applicable) Date/Time of Procedure: SEE SURGICAL CARE RECORD Hayley Ulloa Dec 18, 2017 10:41
[2017-12-18] MEDS ORDERED: MIDAZOLAM HCL 2 MG/2 ML VIAL ONE (10:45)
--- NOTE | 2017-12-18 11:09 | MP ---
cc: Yovana QUEEN M.D. DATE OF SURGERY 12/18/2017 PREOPERATIVE DIAGNOSIS Osteoarthritic degeneration left knee. POSTOPERATIVE DIAGNOSIS Osteoarthritic degeneration left knee. SURGERY PERFORMED Left total knee arthroplasty using Consensus components size 5 femur, 4 tibia, 2 patella, 12 insert and four batches of DePuy cement. SURGEON Dr. Queen SHEET PILE DRIVER OPERATOR COLEMAN Edge ANESTHESIA General intubation and block. PROCEDURE FOLLOWS After successful induction of anesthesia, the patient is placed on the operating room table in the supine position. The knee is prepped and draped in the usual manner. A tourniquet is inflated at the upper thigh and set to 300 mmHg pressure after exsanguination of the lower extremity. A longitudinal incision is made extending from 3 inches proximal to the superior pole of the patella, across the patella in longitudinal fashion, and down past the insertion of the tibial tubercle into the proximal tibia. The incision is carried down through subcutaneous tissue along the medial aspect of the patella and retinaculum, down through the capsule to expose the knee joint. The patella and patellar tendon are freed up enough to allow the patella to be inverted and retracted off the lateral side of the knee joint. The knee joint is left exposed. Small osteophytes are removed. All soft tissue is removed to allow proper position of the femoral and tibial cutting jig guide. The first femoral jig is then inserted along the distal end of the femur after first measuring to decide whether this is a small, medium, or large component. The notch is then drilled and the tibial cutting guide inserted into the femoral cutting guide, along with the ankle brace to allow for proper measurement of the tibial cutting surface that needed to be resected. Pins are inserted into the tibial cutting jig and femoral cutting jig to hold them in place. An oscillating saw is then used to resect the surface of the tibia. The surface of the tibia is then completely removed using sharp and blunt dissection. The anterior and posterior cuts of the femur are then made as well using an oscillating saw through the cutting guide. All guides are then removed and the varus/valgus angulation cutting guide applied to the femur for proper measurement of the proper amount of valgus. The anterior cutting guide for the femur is then inserted at the anterior femoral cuts made. Next, the first block trial is inserted into the femur to allow for proper condyle drill holes to be made which are then made followed by removal of the bone between the condyles using an oscillating saw as well as the bone removed at the most posterior surface of the condyle. After this, this guide is removed and the chamfer cuts made using the chamfer cutting guide from both anterior and posterior. Next, the femoral trial is then inserted, the tibial surface reflected anterior to expose the tibial surface and a tibial stem guide is inserted after first measuring for a standard, standard plus, large, or large plus surface to be used. After the stem is impacted the trial tibial surface is applied followed by the trial meniscal components. After full range of motion is found with the appropriate length meniscal components varying the patella is prepared by resecting the posterior aspect of the patella using an oscillating saw, inserting a trial. The trial is then removed and the cruciate cutting guide applied using the bur to cut the cruciate cuts. After cruciate cuts are made all trials are removed. The wound is irrigated copiously with antibiotic solution and Water Pik and the actual components inserted into place using Consensus components size 5 femur, 4 tibia, 2 patella, 12 insert and four batches of DePuy cement. After the cement has hardened and the components are found to have full range of motion with no instability, the tourniquet is deflated, total tourniquet time being 62 minutes at 300 mmHg pressure. The wound is irrigated copiously with antibiotic solution, meticulous hemostasis achieved, 120 cc of Exparel used around the knee joint for extra pain control. The deep fascia was approximated with running #2 Quill. A small lateral release done to better track the patella. The subcutaneous tissue was approximated using interrupted and running 2-0 and 3-0 Monocryl sutures, Steri-Strips, sterile dressing, knee immobilizer. DRAINS No drains utilized. ESTIMATED BLOOD LOSS 150 cc. COUNTS Sponge and suture counts correct. The patient tolerated the procedure well and left the operating room in satisfactory condition. Celsa CEE was present during the entire procedure to include patient positioning and the procedure. The medical necessity of a nurse practitioner machinist first class was indicated in this case due to the surgical complexity of the case itself and during the surgical case the instructor adjunct surgical technician was working at the back table while my surgical brace maker COLEMAN was directly assisting me. J. MD ZOE Cary/SSB /10:06 AM /10:54 AM
[2017-12-18] MEDS: LACTATED RINGER'S 1000 ML INJ 1,000 ML IV SCH ×2 (11:10→19:56)
[2017-12-18 12:00] VITALS: BP 146/70; PULSE 74; RESP 18; TEMP 97.1; O2SAT 94
[2017-12-18] MEDS ORDERED: LACTATED RINGER'S 1000 ML INJ 1,000 ML IV ONE (12:00)
[2017-12-18] MEDS ORDERED: ONDANSETRON HCL 4 MG/2 ML VIAL IV ONE (12:00)
[2017-12-18] MEDS ORDERED: LIDOCAINE HCL 1% PF 5 ML SYRINGE OTHER ONE (12:00)
[2017-12-18] MEDS ORDERED: DO NOT ADM ANY ANTICOAGULANT DRUGS PRN (12:00)
[2017-12-18] MEDS ORDERED: ePHEDrine/NS 25 MG/5 ML SYRINGE IV ONE (12:00)
[2017-12-18] MEDS ORDERED: PROPOFOL 200 MG/20 ML AMP IV ONE (12:00)
--- NOTE | 2017-12-18 12:11 | RADRPT ---
EXAM DATE/TIME: 12/18/2017 11:03 [facility] COMPARISON: No previous studies available for comparison. INDICATIONS : Post-op left knee replacement. MEDICAL HISTORY : Hypertension. Diabetes mellitus type 2. Hypercholesterolemia SURGICAL HISTORY : Total knee replacement, left. ENCOUNTER: Initial ACUITY: 1 day PAIN SCORE: 0/10 LOCATION: Left knee. FINDINGS: AP and lateral views of the knee following arthroplasty reveals a prosthesis in anatomic alignment. F racture is not appreciated. Surgical drain is evident CONCLUSION: Status post total knee arthroplasty. Brendan Carrasco MD FACR on December 18, 2017 at 12:09 Board Certified Radiologist. This report was verified electronically.
--- NOTE | 2017-12-18 15:23 | PD.CONS ---
HPI Service [facility] Consult Requested By Dr. Bobby Reason for Consult Medical management. Primary Care Physician Carmela Ramirez Jr, MD Diagnoses: (1) Osteoarthritis of left knee (2) Hypertension (3) Diabetes (4) Status post total left knee replacement History of Present Illness 67-year-old male with a medical history significant for hypertension, type 2 diabetes, osteoarthritis admitted to the hospital for total left knee replacement after he failed conservative management outpatient. Regarding hypertension, patient reports losartan dose was increased recently and his blood pressure has been stable since then. He denies any dyspnea on exertion or chest pain. Regarding diabetes, he reports that his primary care physician told him to stop taking glyburide but he continued to take half the dose because he states he has two bottles left. Fasting BMP on 12/12/17 showed a blood glucose of 133. He is aware of hypoglycemic symptoms but states he gets worried about his blood glucose because he does not strictly adhere to a diabetic diet. Review of Systems Constitutional: DENIES: Fever, Chills Endocrine: DENIES: Polyuria, Polyphagia Respiratory: DENIES: Cough, Shortness of breath Cardiovascular: DENIES: Chest pain Musculoskeletal: COMPLAINS OF: Joint pain Except as stated in HPI: all other systems reviewed are Neg Past Family Social History Allergies: Coded Allergies: No Known Allergies (Verified Allergy, Unknown, 12/18/17) Past Medical History Hypertension Diabetes type 2 Osteoarthritis Past Surgical History S/P left knee arthroplasty Status post right total knee arthroplasty 02/17/17 Family History Discussed, noncontributory. Social History Patient denies using tobacco. Admits to drinking 4-5 beers daily. Denies illicit drug use. Physical Exam Vital Signs Vital Signs Date Time Temp Pulse Resp B/P (MAP) Pulse Ox O2 Delivery O2 Flow Rate FiO2 12/18/17 12:00 97.1 74 18 146/70 (95) 94 12/18/17 11:35 73 16 140/77 (98) 100 Nasal Cannula 2 12/18/17 11:15 73 16 140/79 (99) 100 Nasal Cannula 2 12/18/17 11:00 78 16 128/68 (88) 99 Nasal Cannula 2 12/18/17 10:45 83 16 131/74 (93) 99 Nasal Cannula 2 12/18/17 10:36 98.5 86 16 124/78 (93) 99 Nasal Cannula 2 12/18/17 06:00 97.6 54 15 160/87 (111 99 Physical Exam GENERAL: This is a well-nourished, well-developed patient, in no apparent distress. SKIN: No rashes, ecchymoses or lesions. Cool and dry. EYES: Pupils equal round and reactive. ENT: Nose without drainage. Throat without erythema, tonsillar hypertrophy or exudate. Uvula midline. Airway patent. NECK: Trachea midline. No JVD or lymphadenopathy. Supple, nontender, no meningeal signs. CARDIOVASCULAR: Regular rate and rhythm without murmurs, gallops, or rubs. RESPIRATORY: Clear to auscultation. Breath sounds equal bilaterally. No wheezes , rales, or rhonchi. GASTROINTESTINAL: Abdomen soft, non-tender, nondistended. No hepato-splenomegaly , or palpable masses. No guarding. MUSCULOSKELETAL: Postop left knee. Neurovascularly intact distally. NEUROLOGICAL: Awake and alert. Normal speech. Imaging Last Impressions Knee X-Ray 12/18/17 0734 Signed Impressions: Service Date/Time: Monday, December 18, 2017 11:03 - CONCLUSION: Status post total knee arthroplasty. Brendan Carrasco MD FACR Assessment and Plan Problem List: (1) Osteoarthritis of left knee ICD Code: M17.12 - Unilateral primary osteoarthritis, left knee (2) Status post total left knee replacement ICD Code: Z96.652 - Presence of left artificial knee joint (3) Diabetes ICD Code: E11.9 - Type 2 diabetes mellitus without complications Status: Acute (4) Hypertension ICD Code: I10 - Essential (primary) hypertension Status: Acute Assessment and Plan 67-year-old male admitted for left knee arthroplasty. Hospitalist service following for management of medical conditions as listed below: Status post total left knee replacement: - Routine postoperative care per orthopedics. - Pain control. Early PT Type 2 diabetes: Patient states his PCP told him to stop glyburide. However he continued this medication on his own. His blood glucose in the low 100s on BMP. - Given renal insufficiency. Hold metformin. Will hold glyburide to avoid hypoglycemic episode - Accu-Cheks. - Advised the patient to discontinue glyburide has recommended by his PCP and to follow-up with his PCP. We discussed the dangers of hypoglycemia at length. However he seems to believe that his dietary indiscretion justify him using the glyburide. HTN: Continue home dose medications. - Clonidine PRN. Alcohol abuse: He drinks about 4 beers daily. He was advised the recommended alcohol intake for men is no more than 2 drinks a day. He denies prior issues with withdrawal. -CIWA. Patient counseled. DVT PPx: Per orthopedics. Kenny Rosa MD Dec 18, 2017 15:23
[2017-12-18 16:44] VITALS: PULSE 130; RESP 19; TEMP 97.1; O2SAT 99
[2017-12-18] MEDS ORDERED: FLUMAZENIL 0.5 MG/5 ML VIAL IV PUSH PRN (18:15)
[2017-12-18] MEDS ORDERED: cloNIDine HCL 0.1 MG TAB PO PRN (18:15)
[2017-12-18] MEDS ORDERED: LORazepam 2 MG/ML VIAL IV PUSH PRN ×4 (18:15)
[2017-12-18] MEDS ORDERED: LORazepam 2 MG TAB PO PRN (18:15)
[2017-12-18 19:11] VITALS: BP 141/97; PULSE 125; RESP 19; TEMP 96.7; O2SAT 98
[2017-12-18] MEDS: ACETAMINOPHEN/HYDROcodone 325 MG/7.5 MG TAB PO PRN (20:04)
[2017-12-18] MEDS: NIACIN 500 MG EXTENDED RELEASE TAB PO SCH (20:04)
[2017-12-18] MEDS ORDERED: TEMAZEPAM 15 MG CAP PO PRN (21:00)
[2017-12-19] VITALS (15 sets, daily range): BP systolic 125–157; BP diastolic 73–99; PULSE 74–139; RESP 18–21; TEMP 98.1–101; O2SAT 95–100
[2017-12-19] MEDS: ACETAMINOPHEN/HYDROcodone 325 MG/7.5 MG TAB PO PRN ×5 (00:25→21:58)
[2017-12-19] MEDS ORDERED: GLUCAGON 1 MG/ML VIAL OTHER PRN (01:00)
[2017-12-19] MEDS ORDERED: DEXTROSE 50% IN WATER 50 ML VIAL(D50) IV PUSH PRN (01:00)
[2017-12-19 01:57] LABS: AUTOMATED NEUTROPHIL # 8.5 TH/MM3 (1.8-7.7); BASOPHIL % 0.3 % (0.0-2.0); EOSINOPHIL % 0.1 % (0.0-4.0); HEMATOCRIT 34.4 % (39.0-51.0); HEMOGLOBIN 11.9 GM/DL (13.0-17.0); LYMPH % 13.2 % (9.0-44.0); LYMPHOCYTE # 1.5 TH/MM3 (1.0-4.8); MEAN CELL VOLUME 90.2 FL (80.0-100.0); MEAN CORPUSCULAR HEMOGLOBIN 31.2 PG (27.0-34.0); MEAN CORPUSCULAR HGB CONC 34.6 % (32.0-36.0); MEAN PLATELET VOLUME 7.8 FL (7.0-11.0); MONO % 9.7 % (0.0-8.0); MONOCYTE # 1.1 TH/MM3 (0-0.9); NEUT % 76.7 % (16.0-70.0); PLATELET COUNT 197 TH/MM3 (150-450); RED BLOOD COUNT 3.81 MIL/MM3 (4.50-5.90); RED CELL DISTRIBUTION WIDTH 12.6 % (11.6-17.2); WHITE BLOOD COUNT 11.1 TH/MM3 (4.0-11.0)
[2017-12-19 02:07] LABS: BICARBONATE 26.8 MEQ/L (21.0-32.0); CALCIUM 8.1 MG/DL (8.5-10.1); CREATININE 1.46 MG/DL (0.60-1.30); MAGNESIUM 2.3 MG/DL (1.5-2.5)
[2017-12-19] MEDS ORDERED: ADENOSINE IV SOLN 3 MG/ML 2 ML VIAL IV PUSH ONE ×3 (05:00→16:00)
[2017-12-19] MEDS ORDERED: METOPROLOL TARTRATE 25 MG TAB PO ONE ×3 (05:30→22:00)
[2017-12-19] MEDS: LOSARTAN 50 MG TAB PO SCH (08:22)
[2017-12-19] MEDS: FENOFIBRATE 145 MG TAB PO SCH (08:24)
[2017-12-19] MEDS: HYDROCHLOROTHIAZIDE 25 MG TAB PO SCH (08:24)
[2017-12-19] MEDS: APIXABAN 2.5 MG TABLET PO SCH ×2 (08:24→21:52)
[2017-12-19] MEDS: LACTATED RINGER'S 1000 ML INJ 1,000 ML IV SCH ×2 (08:28→22:25)
[2017-12-19] MEDS: INSULIN ASPART SUPPLEMENTAL SCALE SQ SCH ×4 (08:28→21:00)
[2017-12-19] MEDS ORDERED: LORazepam 2 MG/ML VIAL IV PUSH ONE (11:00)
--- NOTE | 2017-12-19 11:04 | HHI.PR ---
Subjective Remarks Patient says he is feeling all right. Denies any chest pain or shortness of breath. Denies any palpitations. He reports drinking 6 beers daily. Denies any history of withdrawal, however says he certainly could be an withdrawal currently Objective Vital Signs Date Time Temp Pulse Resp B/P (MAP) Pulse Ox O2 Delivery O2 Flow Rate FiO2 12/19/17 08:00 99.9 127 20 147/90 (109) 96 12/19/17 05:14 98.9 131 18 143/90 (107) 95 12/19/17 03:55 131 12/19/17 02:24 131 12/19/17 01:11 18 12/19/17 00:31 98.1 122 18 152/98 (116) 97 12/18/17 21:55 Room Air 12/18/17 19:11 96.7 125 19 141/97 (112) 98 12/18/17 16:44 97.1 130 19 99 12/18/17 12:00 97.1 74 18 146/70 (95) 94 12/18/17 11:35 73 16 140/77 (98) 100 Nasal Cannula 2 12/18/17 11:15 73 16 140/79 (99) 100 Nasal Cannula 2 I/O 12/18/17 12/18/17 12/18/17 12/19/17 12/19/17 12/19/17 07:00 15:00 23:00 07:00 15:00 23:00 Intake Total 1700 ml 580 ml 460 ml Output Total 3150 ml 2600 ml Balance -1450 ml 580 ml -2140 ml Intake Oral 480 ml 360 ml IV Total 1700 ml 100 ml 100 ml Output Urine Total 2600 ml Estimated Blood Loss 150 ml Other 3000 ml # Voids 4 1 # Bowel Movements 0 0 Result Diagram: 12/19/17 0125 12/19/17 0125 Objective Remarks GENERAL: She is lying in bed. Appears comfortable. Alert and oriented 3. SKIN: Warm and dry. HEAD: Normocephalic. EYES: No scleral icterus. No injection or drainage. NECK: Supple, trachea midline. No JVD or lymphadenopathy. CARDIOVASCULAR: tachycardic Regular rhythm without murmurs, gallops, or rubs. RESPIRATORY: Breath sounds equal bilaterally. No accessory muscle use. GASTROINTESTINAL: Abdomen soft, non-tender, nondistended. MUSCULOSKELETAL: No cyanosis, or edema. BACK: Nontender without obvious deformity. No CVA tenderness. A/P Assessment and Plan 67-year-old male admitted for left knee arthroplasty. Hospitalist service following for management of medical conditions as listed below: //Status post total left knee replacement: - Routine postoperative care per orthopedics. - Pain control. Early PT //Tachycardia = Heart rate in the 130s on telemetry. Appears to be sinus. We'll check EKG. Patient reports pain is controlled, so unlikely secondary to pain. Continue to monitor. Discussed with orthopedics. //Low grade fever 99.9 = Together with tachycardia, we'll check chest x-ray, urinalysis. //Type 2 diabetes: Patient states his PCP told him to stop glyburide. However he continued this medication on his own. His blood glucose in the low 100s on BMP. - Given renal insufficiency. Hold metformin. Will hold glyburide to avoid hypoglycemic episode - Accu-Cheks. - Advised the patient to discontinue glyburide has recommended by his PCP and to follow-up with his PCP. We discussed the dangers of hypoglycemia at length. However he seems to believe that his dietary indiscretion justify him using the glyburide. = Blood sugars controlled on insulin sliding scale. Continue to monitor. //HTN: Continue home dose medications. - Clonidine PRN. //Alcohol abuse: He drinks about 4 beers daily. He was advised the recommended alcohol intake for men is no more than 2 drinks a day. He denies prior issues with withdrawal. -CIWA. Patient counseled. = 2/6. Tachycardia. We'll order extra Ativan. Scheduled Librium DVT PPx: Per orthopedics. Discharge Planning Continue inpatient medical management. Aquiles Lomas MD Dec 19, 2017 11:04
--- NOTE | 2017-12-19 11:17 | PD.ORT.PN ---
Subjective Subjective Remarks Pt fairly comfortable at present. Objective Vitals Vital Signs Date Time Temp Pulse Resp B/P (MAP) Pulse Ox O2 Delivery O2 Flow Rate FiO2 12/19/17 08:00 99.9 127 20 147/90 (109) 96 12/19/17 05:14 98.9 131 18 143/90 (107) 95 12/19/17 03:55 131 12/19/17 02:24 131 12/19/17 01:11 18 12/19/17 00:31 98.1 122 18 152/98 (116) 97 12/18/17 21:55 Room Air 12/18/17 19:11 96.7 125 19 141/97 (112) 98 12/18/17 16:44 97.1 130 19 99 12/18/17 12:00 97.1 74 18 146/70 (95) 94 12/18/17 11:35 73 16 140/77 (98) 100 Nasal Cannula 2 I/O 12/18/17 12/18/17 12/18/17 12/19/17 12/19/17 12/19/17 07:00 15:00 23:00 07:00 15:00 23:00 Intake Total 1700 ml 580 ml 460 ml Output Total 3150 ml 2600 ml Balance -1450 ml 580 ml -2140 ml Intake Oral 480 ml 360 ml IV Total 1700 ml 100 ml 100 ml Output Urine Total 2600 ml Estimated Blood Loss 150 ml Other 3000 ml # Voids 4 1 # Bowel Movements 0 0 Result Diagram: 12/19/17 0125 12/19/17 0125 Imaging Last 48 hours Impressions Knee X-Ray 12/18/17 0734 Signed Impressions: Service Date/Time: Monday, December 18, 2017 11:03 - CONCLUSION: Status post total knee arthroplasty. Brendan Carrasco MD FACR Objective Remarks Dressing dry and intact. NV intact to toes. No calf tenderness. In bed at present. Assessment & Plan Ortho Post Op Day #: 1 Problem List: Assessment and Plan Getting workup by medical for tachycardia. Cont PT and daily wound care. Yovana Bobby MD Dec 19, 2017 11:17
[2017-12-19] MEDS ORDERED: SODIUM CHLOR 0.9% 1000 ML INJ 1,000 ML IV ONE (12:00)
--- NOTE | 2017-12-19 12:13 | RADRPT ---
EXAM DATE/TIME: 12/19/2017 11:34 [facility] COMPARISON: No previous studies available for comparison. INDICATIONS : Fever. MEDICAL HISTORY : Hypertension. Diabetes mellitus type 2. Hypercholesterolemia SURGICAL HISTORY : Total left knee replacement. ENCOUNTER: Subsequent ACUITY: 2 days PAIN SCORE: 0/10 LOCATION: Bilateral chest FINDINGS: A single view of the chest demonstrates the lungs to be symmetrically aerated without evidence of mas s, infiltrate or effusion. The cardiomediastinal contours are unremarkable. Osseous structures are intact. CONCLUSION: 1. The lungs are clear. Elton Chavez MD on December 19, 2017 at 12:05 Board Certified Radiologist. This report was verified electronically.
[2017-12-19 12:23] LABS: BACTERIA, URINE RARE /hpf; BILIRUBIN, URINE NEG (NEG); BLOOD, URINE NEG (NEG); GLUCOSE,URINE 300 mg/dL (NEG); KETONE, URINE NEG (NEG); NITRITE,URINE NEG (NEG); URINE COLOR LIGHT-YELLOW (YELLW/STRAW); URINE LEUKOCYTE ESTERASE NEG (NEG)
[2017-12-19] MEDS ORDERED: METOPROLOL TARTRATE 50 MG TAB PO ONE (14:45)
--- NOTE | 2017-12-19 15:28 | MB ---
cc: SONU OSULLIVAN DATE OF CONSULTATION 12/19/2017 REASON FOR CONSULTATION Tachycardia. HISTORY OF PRESENT ILLNESS This is a 67-year-old gentleman with a history of hypertension, diabetes, osteoarthritis, who came in with failed outpatient management for osteoarthritis and requiring a total left knee replacement. He did well periprocedurally. When he came out of the operating room he was noted to be quite tachycardic with a narrow complex tachycardia, regular, and he has been persistently tachycardic now pretty much most of the day. We are consulted for further recommendations. He denies any prior history of any arrhythmia. He denies any chest pain or shortness of breath. PAST MEDICAL HISTORY 1. Hypertension. 2. Diabetes. 3. Osteoarthritis. FAMILY HISTORY He denies any family history of early coronary artery disease or sudden cardiac . SOCIAL HISTORY He denies any tobacco use. Does report drinking about 4-5 beers a day. Denies any illicit drug use. REVIEW OF SYSTEMS A 12-point review of systems was performed and negative unless otherwise noted in the history of present illness. PHYSICAL EXAMINATION VITAL SIGNS: Temperature 97, heart rate 136, blood pressure 140/70 mmHg. GENERAL: Alert and oriented x3, in no acute distress. HEENT: Pupils are reactive to light and accommodation. Extraocular movements are intact. NECK: No jugular venous distention. No thyromegaly. No lymphadenopathy. No carotid bruits. LUNGS: Clear to auscultation bilaterally. CARDIOVASCULAR: Regular, tachycardic. ABDOMEN: Nontender, nondistended. Good bowel sounds. No hepatosplenomegaly. EXTREMITIES: No clubbing, cyanosis or edema. Good peripheral pulses. NEUROLOGIC: Cranial nerves intact. Motor and sensory grossly intact. LABORATORY DATA WBC 11.1, hemoglobin 11.9, platelet count 197. Sodium 140, potassium 4.1, BUN 23, creatinine 1.46. ASSESSMENT 1. Tachycardia. 2. Total knee replacement. 3. Hypertension. PLAN EKG was reviewed with narrow complex tachycardia fairly regular, looked at all the telemetry strips. I cannot rule out that this is atrial flutter 2:1, although he has no prior history of atrial fibrillation or flutter. 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 I tried a carotid massage and there was no effect. He will need rate control but first I would like to give him a dose of adenosine and see what his underlying atrial rhythm is. If it is a reentrant tachycardia it should terminate. If it is atrial flutter or atrial fibrillation will be able to identify the underlying atrial rhythm. If it is an AV junctional rhythm then we will just initiate intravenous Cardizem. If he converts then will likely just conservatively manage him. He has no shortness of breath to suggest that this is a pulmonary embolism, although we need to keep that in consideration. MD ZAKI Ramirez/LAURI /2:09 PM /2:53 PM
[2017-12-19] MEDS: MULTIVITAMINS/MINERALS THERAPEUTIC TAB PO SCH (21:52)
[2017-12-19] MEDS: LORazepam 1 MG TAB PO PRN (21:52)
[2017-12-19] MEDS: DOCUSATE SODIUM 100 MG CAP PO SCH (21:52)
[2017-12-19] MEDS: ACETAMINOPHEN 325 MG TAB PO PRN (21:53)
[2017-12-19] MEDS: NIACIN 500 MG EXTENDED RELEASE TAB PO SCH (21:58)
[2017-12-20] VITALS (8 sets, daily range): BP systolic 121–154; BP diastolic 69–93; PULSE 72–136; RESP 14–20; TEMP 98.8–99.9; O2SAT 99–100
[2017-12-20] MEDS: METOPROLOL TARTRATE 5 MG/5 ML VIAL IV PUSH PRN ×2 (01:44→02:17)
[2017-12-20 05:36] LABS: HEMATOCRIT 32.5 % (39.0-51.0); HEMOGLOBIN 11.4 GM/DL (13.0-17.0)
[2017-12-20] MEDS: ACETAMINOPHEN 325 MG TAB PO PRN (05:59)
[2017-12-20] MEDS: LORazepam 1 MG TAB PO PRN (05:59)
--- NOTE | 2017-12-20 07:56 | PD.ORT.PN ---
Subjective Subjective Remarks Pt fairly comfortable at present. Objective Vitals Vital Signs Date Time Temp Pulse Resp B/P (MAP) Pulse Ox O2 Delivery O2 Flow Rate FiO2 12/20/17 04:00 99.9 120 16 139/93 (108) 100 12/20/17 00:00 99.1 122 18 124/72 (89) 100 12/20/17 00:00 125 12/19/17 20:00 101.0 128 19 125/76 (92) 100 12/19/17 17:45 126 157/99 (118) 12/19/17 17:30 127 157/97 (117) 12/19/17 17:15 127 152/98 (116) 12/19/17 17:05 127 12/19/17 16:45 74 133/87 (102) 12/19/17 16:30 77 127/73 (91) 12/19/17 16:00 98.7 138 21 130/88 (102) 96 12/19/17 14:30 130 12/19/17 12:00 98.6 139 21 128/91 (103) 96 12/19/17 08:00 99.9 127 20 147/90 (109) 96 I/O 12/19/17 12/19/17 12/19/17 12/20/17 12/20/17 12/20/17 07:00 15:00 23:00 07:00 15:00 23:00 Intake Total 460 ml 840 ml 738 ml Output Total 2600 ml 800 ml 1000 ml Balance -2140 ml 40 ml -262 ml Intake Oral 360 ml 840 ml 200 ml IV Total 100 ml 538 ml Output Urine Total 2600 ml 800 ml 1000 ml # Voids 1 8 # Bowel Movements 0 Result Diagram: 12/20/17 0357 12/19/17 0125 Imaging Last 48 hours Impressions Knee X-Ray 12/18/17 0734 Signed Impressions: Service Date/Time: Monday, December 18, 2017 11:03 - CONCLUSION: Status post total knee arthroplasty. Brendan Carrasco MD FACR Objective Remarks Dressing dry and intact. NV intact to toes. No calf tenderness. In bed at present. Assessment & Plan Ortho Post Op Day #: 2 Problem List: Assessment and Plan Getting workup by medical for tachycardia. Cont PT and daily wound care. Yovana Bobby MD Dec 20, 2017 07:56
[2017-12-20] MEDS: INSULIN ASPART SUPPLEMENTAL SCALE SQ SCH ×4 (08:00→20:42)
[2017-12-20] MEDS: DOCUSATE SODIUM 100 MG CAP PO SCH ×2 (08:13→20:24)
[2017-12-20] MEDS: LOSARTAN 50 MG TAB PO SCH (08:13)
[2017-12-20] MEDS: METOPROLOL TARTRATE 100 MG TAB PO SCH ×2 (08:13→20:24)
[2017-12-20] MEDS: MULTIVITAMINS/MINERALS THERAPEUTIC TAB PO SCH ×2 (08:13→20:24)
[2017-12-20] MEDS: HYDROCHLOROTHIAZIDE 25 MG TAB PO SCH (08:13)
[2017-12-20] MEDS: LACTATED RINGER'S 1000 ML INJ 1,000 ML IV SCH ×2 (08:14→22:27)
[2017-12-20] MEDS ORDERED: PILL SPLITTER OTHER PRN (08:45)
[2017-12-20] MEDS ORDERED: AMIODARONE INJ 150 MG in DEXTROSE 5% IN WATER 100ML INJ 100 ML IV ONE ×2 (08:47)
--- NOTE | 2017-12-20 08:50 | PD.CARD.PN ---
Subjective Subjective Remarks Feels well. Adenosine broke rhythm yesterday. Currently on 150 mg metoprolol bid. HR 130. No change with carotid massage. Suspect atrial tachycardia. Wuill try amiodarone infusion Objective Medications Current Medications Medications (Trade) Dose Ordered Sig/Magalie Route Start Time Stop Time Status Last Admin Lactated Ringer's 1,000 ml @ 30 mls/hr Q24H PRN IV 12/18/17 06:15 12/21/17 06:14 12/18/17 06:15 Sodium Chloride 500 ml @ 30 mls/hr [id number] PRN IV 12/18/17 06:15 12/21/17 06:14 (Lopressor) 25 mg ENGINE LATHE SET UP OPERATOR PRN PO 12/18/17 06:15 12/21/17 06:14 (Betadine 5% Antisepsis Kit) 1 applic ENGINE LATHE SET UP OPERATOR PRN EACH NARE 12/18/17 06:15 12/21/17 06:14 12/18/17 06:10 (Chlorhexidine 2% Cloth) 3 pack ENGINE LATHE SET UP OPERATOR PRN TOPICAL 12/18/17 06:15 12/21/17 06:14 12/18/17 05:40 (Hibiclens 4% Top Soln) 1 applic ONCE TOPICAL 12/18/17 06:15 12/21/17 06:14 Cefazolin Sodium/ Dextrose 50 ml @ 100 mls/hr ENGINE LATHE SET UP OPERATOR IV 12/18/17 06:15 12/21/17 06:14 12/18/17 08:16 Vancomycin HCl 1000 mg/Sodium Chloride 250 ml @ 250 mls/hr ENGINE LATHE SET UP OPERATOR IV 12/18/17 06:15 12/21/17 06:14 12/18/17 07:06 (Diabeta) 2.5 mg BID PO 12/18/17 09:00 Future Hold (Hydrodiuril) 25 mg DAILY PO 12/18/17 09:00 12/20/17 08:13 (Glucophage) 500 mg BIDPC PO 12/18/17 09:00 Future Hold (Tricor) 145 mg DAILY PO 12/18/17 09:00 12/19/17 08:24 (Slo-Niacin) 1,000 mg HS PO 12/18/17 21:00 12/19/17 21:58 (Cozaar) 100 mg DAILY PO 12/18/17 09:00 12/20/17 08:13 Lactated Ringer's 1,000 ml @ 80 mls/hr [id number] IV 12/18/17 07:34 12/20/17 08:14 ([place] 7.5-325 Mg) 1 tab Q4H PRN PO 12/18/17 07:45 12/19/17 17:43 ([place] 7.5-325 Mg) 2 tab Q4H PRN PO 12/18/17 07:45 12/19/17 21:58 (Tylenol) 650 mg Q6H PRN PO 12/18/17 07:45 12/20/17 05:59 (Theragran M Tab) 1 tab BID PO 12/19/17 21:00 02/17/18 20:59 12/20/17 08:13 (Zofran Inj) 4 mg Q6H PRN IVP 12/18/17 07:45 (Colace) 100 mg BID PO 12/19/17 21:00 12/20/17 08:13 (Restoril) 15 mg HS PRN PO 12/18/17 21:00 (Bacitracin Oint Packet) 0.9 gm UNSCH X1 PRN TOP 12/20/17 10:15 12/22/17 10:14 (Narcan Inj) 0.4 mg UNSCH PRN IV PUSH 12/18/17 07:45 (Benadryl Inj) 25 mg Q6H PRN IV PUSH 12/18/17 07:45 (Morphine Inj) 4 mg Q3H PRN IV PUSH 12/18/17 07:45 (Romazicon Inj) 0.2 mg Q1M PRN IV PUSH 12/18/17 18:15 (Ativan) 1 mg Q4H PRN PO 12/18/17 18:15 12/20/17 05:59 (Ativan Inj) 1 mg Q4H PRN IV PUSH 12/18/17 18:15 12/19/17 10:55 (Ativan) 2 mg Q2H PRN PO 12/18/17 18:15 (Ativan Inj) 2 mg Q2H PRN IV PUSH 12/18/17 18:15 (Ativan Inj) 2 mg Q1H PRN IV PUSH 12/18/17 18:15 (Ativan Inj) 2 mg Q15M PRN IV PUSH 12/18/17 18:15 (Catapres) 0.1 mg Q6H PRN PO 12/18/17 18:15 (D50w (Vial) Inj) 50 ml UNSCH PRN IV PUSH 12/19/17 01:00 (Glucagon Inj) 1 mg UNSCH PRN OTHER 12/19/17 01:00 (NovoLOG SUPPLEMENTAL SCALE) 1 ACHS SLIDING SCALE SQ 12/19/17 08:00 12/19/17 12:55 (Librium) 10 mg TID PO 12/19/17 13:00 12/20/17 08:13 (Lopressor) 50 mg DAILY PO 12/20/17 09:00 12/20/17 08:13 (Lopressor Inj) 5 mg Q5M PRN IV PUSH 12/19/17 16:00 12/20/17 02:17 (Lopressor) 100 mg Q12HR PO 12/20/17 09:00 12/20/17 08:13 (Eliquis) 2.5 mg BID PO 12/20/17 09:00 (Pill Splitter) 1 ea UNSCH PRN OTHER 12/20/17 08:45 Vital Signs / I&O Vital Signs Date Time Temp Pulse Resp B/P (MAP) Pulse Ox O2 Delivery O2 Flow Rate FiO2 12/20/17 07:56 20 12/20/17 04:00 99.9 120 16 139/93 (108) 100 12/20/17 00:00 99.1 122 18 124/72 (89) 100 12/20/17 00:00 125 12/19/17 20:00 101.0 128 19 125/76 (92) 100 12/19/17 17:45 126 157/99 (118) 12/19/17 17:30 127 157/97 (117) 12/19/17 17:15 127 152/98 (116) 12/19/17 17:05 127 12/19/17 16:45 74 133/87 (102) 12/19/17 16:30 77 127/73 (91) 12/19/17 16:00 98.7 138 21 130/88 (102) 96 12/19/17 14:30 130 12/19/17 12:00 98.6 139 21 128/91 (103) 96 I/O 2/6/18 2/6/18 12/19/17 12/20/17 12/20/17 12/20/17 07:00 15:00 23:00 07:00 15:00 23:00 Intake Total 460 ml 840 ml 738 ml Output Total 2600 ml 800 ml 1000 ml Balance -2140 ml 40 ml -262 ml Intake Oral 360 ml 840 ml 200 ml IV Total 100 ml 538 ml Output Urine Total 2600 ml 800 ml 1000 ml # Voids 1 8 # Bowel Movements 0 Laboratory Laboratory Tests Test 12/19/17 12:00 12/20/17 03:57 Urine Color LIGHT-YELLOW Urine Turbidity CLEAR Urine pH 7.0 Urine Specific Lee 1.008 Urine Protein NEG mg/dL Urine Glucose (UA) 300 mg/dL Urine Ketones NEG mg/dL Urine Occult Blood NEG Urine Nitrite NEG Urine Bilirubin NEG Urine Urobilinogen LESS THAN 2.0 MG/DL Urine Leukocyte Esterase NEG Urine RBC 1 /hpf Urine WBC LESS THAN 1 /hpf Urine Bacteria RARE /hpf Microscopic Urinalysis Comment CULT NOT INDICATED Hemoglobin 11.4 GM/DL Hematocrit 32.5 % Delmer Mcneil MD Dec 20, 2017 08:50
[2017-12-20] MEDS ORDERED: METOPROLOL TARTRATE 50 MG TAB PO SCH (09:00)
[2017-12-20] MEDS: APIXABAN 5 MG TABLET PO SCH ×2 (09:14→20:24)
[2017-12-20] MEDS: FENOFIBRATE 145 MG TAB PO SCH (09:14)
[2017-12-20] MEDS ORDERED: AMIODARONE INJ 450 MG in SODIUM CHLOR 0.9% (EXCEL) INJ 241 ML IV PRN (10:00)
[2017-12-20] MEDS ORDERED: AMIODARONE INJ 450 MG in DEXTROSE 5% IN WATE(EXCEL) INJ 241 ML IV PRN ×2 (10:00)
[2017-12-20] MEDS ORDERED: BACITRACIN OINT 0.9 GM PKT TOP PRN (10:15)
[2017-12-20 10:40] LABS: AUTOMATED NEUTROPHIL # 5.7 TH/MM3 (1.8-7.7); BASOPHIL % 0.5 % (0.0-2.0); EOSINOPHIL # 0.1 TH/MM3 (0-0.4); EOSINOPHIL % 0.8 % (0.0-4.0); HEMATOCRIT 31.8 % (39.0-51.0); HEMOGLOBIN 10.9 GM/DL (13.0-17.0); LYMPH % 15.1 % (9.0-44.0); LYMPHOCYTE # 1.1 TH/MM3 (1.0-4.8); MEAN CELL VOLUME 90.8 FL (80.0-100.0); MEAN CORPUSCULAR HEMOGLOBIN 31.2 PG (27.0-34.0); MEAN CORPUSCULAR HGB CONC 34.4 % (32.0-36.0); MEAN PLATELET VOLUME 7.8 FL (7.0-11.0); MONO % 7.4 % (0.0-8.0); MONOCYTE # 0.6 TH/MM3 (0-0.9); NEUT % 76.2 % (16.0-70.0); PLATELET COUNT 184 TH/MM3 (150-450); RED CELL DISTRIBUTION WIDTH 12.4 % (11.6-17.2); WHITE BLOOD COUNT 7.5 TH/MM3 (4.0-11.0)
[2017-12-20 11:11] LABS: ALBUMIN 3.3 GM/DL (3.4-5.0); AST (GOT) 19 U/L (15-37); BICARBONATE 28.6 MEQ/L (21.0-32.0); BLOOD UREA NITROGEN 21 MG/DL (7-18); CALCIUM 8.8 MG/DL (8.5-10.1); CHLORIDE 100 MEQ/L (98-107); CREATININE 1.37 MG/DL (0.60-1.30); GLOMERULAR FILTRATION RATE 52 ML/MIN (>89); GLUCOSE,RANDOM 235 MG/DL (74-106); SODIUM (NA) 134 MEQ/L (136-145)
[2017-12-20 11:15] LABS: ALKALINE PHOSPHATASE 35 U/L (45-117); ALT (GPT) 15 U/L (12-78); TOTAL BILIRUBIN ADULT 0.7 MG/DL (0.2-1.0)
--- NOTE | 2017-12-20 13:00 | EKG ---
Date Performed: 12/19/2017 Time Performed: 15:05:20 PTAGE: 67 years EKG: JUNCTIONAL TACHYCARDIA ABNORMAL RHYTHM ECG PREVIOUS TRACING : 12/19/2017 11.39 DOCTOR: Pardeep De Leon Interpretating Date/Time 12/20/2017 12:52:29
--- NOTE | 2017-12-20 13:06 | EKG ---
Date Performed: 12/19/2017 Time Performed: 11:39:41 PTAGE: 67 years EKG: JUNCTIONAL TACHYCARDIA ABNORMAL RHYTHM ECG PREVIOUS TRACING : 12/12/2017 08.35 DOCTOR: Pardeep De Leon Interpretating Date/Time 12/20/2017 12:57:00
--- NOTE | 2017-12-20 15:50 | HHI.PR ---
Subjective Remarks Patient says he is feeling well. Denies any chest pain or shortness of breath. Discussed with nursing. Patient had tachycardia which resolved after bowel movement this morning. Objective Vital Signs Date Time Temp Pulse Resp B/P (MAP) Pulse Ox O2 Delivery O2 Flow Rate FiO2 12/20/17 15:00 78 12/20/17 12:00 98.8 72 18 137/70 (92) 100 12/20/17 09:41 121 155/92 12/20/17 08:00 136 12/20/17 08:00 99.2 134 16 154/92 (112) 100 12/20/17 07:56 20 12/20/17 04:00 99.9 120 16 139/93 (108) 100 12/20/17 00:00 99.1 122 18 124/72 (89) 100 12/20/17 00:00 125 12/19/17 20:00 101.0 128 19 125/76 (92) 100 12/19/17 17:45 126 157/99 (118) 12/19/17 17:30 127 157/97 (117) 12/19/17 17:15 127 152/98 (116) 12/19/17 17:05 127 12/19/17 16:45 74 133/87 (102) 12/19/17 16:30 77 127/73 (91) 12/19/17 16:00 98.7 138 21 130/88 (102) 96 I/O 12/19/17 12/19/17 12/19/17 12/20/17 12/20/17 12/20/17 07:00 15:00 23:00 07:00 15:00 23:00 Intake Total 460 ml 840 ml 738 ml Output Total 2600 ml 800 ml 1000 ml Balance -2140 ml 40 ml -262 ml Intake Oral 360 ml 840 ml 200 ml IV Total 100 ml 538 ml Output Urine Total 2600 ml 800 ml 1000 ml # Voids 1 8 # Bowel Movements 0 Result Diagram: 12/20/17 1006 12/20/17 1006 Objective Remarks GENERAL: he is lying in bed. Appears comfortable. Alert and oriented 3. SKIN: Warm and dry. HEAD: Normocephalic. EYES: No scleral icterus. No injection or drainage. NECK: Supple, trachea midline. No JVD . CARDIOVASCULAR: Regular rhythm without murmurs, gallops, or rubs. RESPIRATORY: Breath sounds equal bilaterally. No accessory muscle use. GASTROINTESTINAL: Abdomen soft, non-tender, nondistended. MUSCULOSKELETAL: No cyanosis, or edema. BACK: Nontender without obvious deformity. No CVA tenderness. A/P Assessment and Plan 67-year-old male admitted for left knee arthroplasty. Hospitalist service following for management of medical conditions as listed below: //Status post total left knee replacement: - Routine postoperative care per orthopedics. - Pain control. Early PT = Status post return of bowel function. //Atrial Tachycardia = Heart rate in the 130s on telemetry. Appears to be sinus. We'll check EKG. Patient reports pain is controlled, so unlikely secondary to pain. Continue to monitor. Discussed with orthopedics. = 2/7 rate controlled on 150 mg of metoprolol twice daily. We'll continue to monitor on telemetry unit. Cardiology following. Appreciate assistance. //Low grade fever 99.9 ordered resolved = Together with tachycardia, we'll check chest x-ray, urinalysis. -Chest x-ray and urinalysis unremarkable. No further fevers. //Type 2 diabetes: Patient states his PCP told him to stop glyburide. However he continued this medication on his own. His blood glucose in the low 100s on BMP. - Given renal insufficiency. Hold metformin. Will hold glyburide to avoid hypoglycemic episode - Accu-Cheks. - Advised the patient to discontinue glyburide has recommended by his PCP and to follow-up with his PCP. We discussed the dangers of hypoglycemia at length. However he seems to believe that his dietary indiscretion justify him using the glyburide. = Blood sugars controlled on insulin sliding scale. Continue to monitor. //HTN: Continue home dose medications. - Clonidine PRN. //Alcohol abuse: //Alcohol withdrawal. = With atrial tachycardia as above. He drinks about 4 beers daily. He was advised the recommended alcohol intake for men is no more than 2 drinks a day. He denies prior issues with withdrawal. -CIWA. Patient counseled. = 12/19. Tachycardia. We'll order extra Ativan. Scheduled Librium = 12/20. Heart rate improved. Appreciate cardiology assistance. Continue Ativan when necessary. Continue Librium scheduled 3 times a day Discharge Planning Continue inpatient medical management. Aquiles Lomas MDb 7, 2018 15:49
[2017-12-20] MEDS: ACETAMINOPHEN/HYDROcodone 325 MG/7.5 MG TAB PO PRN (17:15)
[2017-12-20] MEDS: NIACIN 500 MG EXTENDED RELEASE TAB PO SCH (20:23)
[2017-12-21 04:00] VITALS: BP 125/78; PULSE 78; RESP 18; TEMP 98.2; O2SAT 97
[2017-12-21 07:00] VITALS: PULSE 88
[2017-12-21 08:00] VITALS: BP 125/78; PULSE 88; RESP 14; TEMP 99.5; O2SAT 99
--- NOTE | 2017-12-21 08:32 | PD.CARD.PN ---
Subjective Subjective Remarks denies chest pain, sob or palpitations Objective Medications Current Medications Medications (Trade) Dose Ordered Sig/Magalie Route Start Time Stop Time Status Last Admin (Diabeta) 2.5 mg BID PO 12/18/17 09:00 Future Hold (Hydrodiuril) 25 mg DAILY PO 12/18/17 09:00 12/20/17 08:13 (Glucophage) 500 mg BIDPC PO 12/18/17 09:00 Future Hold (Tricor) 145 mg DAILY PO 12/18/17 09:00 12/20/17 09:14 (Slo-Niacin) 1,000 mg HS PO 12/18/17 21:00 12/20/17 20:23 (Cozaar) 100 mg DAILY PO 12/18/17 09:00 12/20/17 08:13 Lactated Ringer's 1,000 ml @ 80 mls/hr [id number] IV 12/18/17 07:34 12/20/17 22:27 ([place] 7.5-325 Mg) 1 tab Q4H PRN PO 12/18/17 07:45 12/19/17 17:43 ([place] 7.5-325 Mg) 2 tab Q4H PRN PO 12/18/17 07:45 12/20/17 17:15 (Tylenol) 650 mg Q6H PRN PO 12/18/17 07:45 12/20/17 05:59 (Theragran M Tab) 1 tab BID PO 12/19/17 21:00 02/17/18 20:59 12/20/17 20:24 (Zofran Inj) 4 mg Q6H PRN IVP 12/18/17 07:45 (Colace) 100 mg BID PO 12/19/17 21:00 12/20/17 20:24 (Restoril) 15 mg HS PRN PO 12/18/17 21:00 (Bacitracin Oint Packet) 0.9 gm UNSCH X1 PRN TOP 12/20/17 10:15 12/22/17 10:14 (Narcan Inj) 0.4 mg UNSCH PRN IV PUSH 12/18/17 07:45 (Benadryl Inj) 25 mg Q6H PRN IV PUSH 12/18/17 07:45 (Morphine Inj) 4 mg Q3H PRN IV PUSH 12/18/17 07:45 (Romazicon Inj) 0.2 mg Q1M PRN IV PUSH 12/18/17 18:15 (Ativan) 1 mg Q4H PRN PO 12/18/17 18:15 12/20/17 05:59 (Ativan Inj) 1 mg Q4H PRN IV PUSH 12/18/17 18:15 12/19/17 10:55 (Ativan) 2 mg Q2H PRN PO 12/18/17 18:15 (Ativan Inj) 2 mg Q2H PRN IV PUSH 12/18/17 18:15 (Ativan Inj) 2 mg Q1H PRN IV PUSH 12/18/17 18:15 (Ativan Inj) 2 mg Q15M PRN IV PUSH 12/18/17 18:15 (Catapres) 0.1 mg Q6H PRN PO 12/18/17 18:15 (D50w (Vial) Inj) 50 ml UNSCH PRN IV PUSH 12/19/17 01:00 (Glucagon Inj) 1 mg UNSCH PRN OTHER 12/19/17 01:00 (NovoLOG SUPPLEMENTAL SCALE) 1 ACHS SLIDING SCALE SQ 12/19/17 08:00 12/20/17 20:42 (Librium) 10 mg TID PO 12/19/17 13:00 12/20/17 18:15 (Lopressor Inj) 5 mg Q5M PRN IV PUSH 12/19/17 16:00 12/20/17 02:17 (Eliquis) 2.5 mg BID PO 12/20/17 09:00 12/20/17 20:24 (Pill Splitter) 1 ea UNSCH PRN OTHER 12/20/17 08:45 Amiodarone HCl 450 mg/Sodium Chloride 250 ml @ 33.33 mls/ hr Q7H31M PRN IV 12/20/17 10:00 (Lopressor) 150 mg Q12HR PO 12/21/17 09:00 Vital Signs / I&O Vital Signs Date Time Temp Pulse Resp B/P (MAP) Pulse Ox O2 Delivery O2 Flow Rate FiO2 12/21/17 04:00 98.2 78 18 125/78 (94) 97 12/20/17 23:00 78 12/20/17 20:00 99.6 78 14 121/71 (88) 100 12/20/17 20:00 123 12/20/17 18:27 20 12/20/17 16:00 98.8 78 20 134/69 (90) 99 12/20/17 15:00 78 12/20/17 12:00 98.8 72 18 137/70 (92) 100 12/20/17 09:41 121 155/92 I/O 12/20/17 12/20/17 12/20/17 12/21/17 12/21/17 12/21/17 07:00 15:00 23:00 07:00 15:00 23:00 Intake Total 738 ml 500 ml 1216 ml Output Total 1000 ml 800 ml Balance -262 ml 500 ml 416 ml Intake Oral 200 ml 500 ml 300 ml IV Total 538 ml 916 ml Output Urine Total 1000 ml 800 ml # Bowel Movements 1 Physical Exam GENERAL: SKIN: Warm and dry. HEAD: Atraumatic. Normocephalic. EYES: Pupils equal and round. No scleral icterus. No injection or drainage. ENT: No nasal bleeding or discharge. NECK: Trachea midline. No JVD. CARDIOVASCULAR: tachycardic, regular rhythm, no murmurs RESPIRATORY: No accessory muscle use. Clear to auscultation. Breath sounds equal bilaterally. GASTROINTESTINAL: Abdomen soft, non-tender, nondistended. NEUROLOGICAL: Awake and alert. No obvious cranial nerve deficits. Normal speech. PSYCHIATRIC: Appropriate mood and affect; insight and judgment normal. Laboratory Laboratory Tests Test 12/20/17 10:06 White Blood Count 7.5 TH/MM3 Red Blood Count 3.50 MIL/MM3 Hemoglobin 10.9 GM/DL Hematocrit 31.8 % Mean Corpuscular Volume 90.8 FL Mean Corpuscular Hemoglobin 31.2 PG Mean Corpuscular Hemoglobin Concent 34.4 % Red Cell Distribution Width 12.4 % Platelet Count 184 TH/MM3 Mean Platelet Volume 7.8 FL Neutrophils (%) (Auto) 76.2 % Lymphocytes (%) (Auto) 15.1 % Monocytes (%) (Auto) 7.4 % Eosinophils (%) (Auto) 0.8 % Basophils (%) (Auto) 0.5 % Neutrophils # (Auto) 5.7 TH/MM3 Lymphocytes # (Auto) 1.1 TH/MM3 Monocytes # (Auto) 0.6 TH/MM3 Eosinophils # (Auto) 0.1 TH/MM3 Basophils # (Auto) 0.0 TH/MM3 CBC Comment DIFF FINAL Differential Comment Blood Urea Nitrogen 21 MG/DL Creatinine 1.37 MG/DL Random Glucose 235 MG/DL Total Protein 7.0 GM/DL Albumin 3.3 GM/DL Calcium Level 8.8 MG/DL Alkaline Phosphatase 35 U/L Aspartate Amino Transf (AST/SGOT) 19 U/L Alanine Aminotransferase (ALT/SGPT) 15 U/L Total Bilirubin 0.7 MG/DL Sodium Level 134 MEQ/L Potassium Level 3.9 MEQ/L Chloride Level 100 MEQ/L Carbon Dioxide Level 28.6 MEQ/L Anion Gap 5 MEQ/L Estimat Glomerular Filtration Rate 52 ML/MIN Assessment and Plan Problem List: (1) Tachycardia ICD Codes: R00.0 - Tachycardia, unspecified Assessment and Plan 67 yo WM s/p L knee arthroplasty post op day 2; developed narrow complex tachycardia post-operatively. Currently taking metoprolol 150mg BID and amiodarone gtt with improved HR overnight. tachycardia- narrow complex, sinus rhythm. suspect atrial tach HR improved overnight however this morning rate elevated 120-130. patient asymptomatic cont amio gtt and metoprolol and Eliquis Yamile Rai Dec 21, 2017 08:32
[2017-12-21] MEDS ORDERED: METOPROLOL TARTRATE 100 MG TAB PO SCH (09:00)
[2017-12-21] MEDS: LOSARTAN 50 MG TAB PO SCH (09:17)
[2017-12-21] MEDS: DOCUSATE SODIUM 100 MG CAP PO SCH (09:17)
[2017-12-21] MEDS: HYDROCHLOROTHIAZIDE 25 MG TAB PO SCH (09:18)
[2017-12-21] MEDS: FENOFIBRATE 145 MG TAB PO SCH (09:18)
[2017-12-21] MEDS: ACETAMINOPHEN/HYDROcodone 325 MG/7.5 MG TAB PO PRN (09:19)
[2017-12-21] MEDS: MULTIVITAMINS/MINERALS THERAPEUTIC TAB PO SCH (09:19)
[2017-12-21] MEDS: APIXABAN 5 MG TABLET PO SCH (09:19)
[2017-12-21 10:19] VITALS: RESP 25
[2017-12-21] MEDS: LACTATED RINGER'S 1000 ML INJ 1,000 ML IV SCH (10:34)
--- NOTE | 2017-12-21 12:08 | PD.ORT.PN ---
Subjective Subjective Remarks Pt fairly comfortable at present. Objective Vitals Vital Signs Date Time Temp Pulse Resp B/P (MAP) Pulse Ox O2 Delivery O2 Flow Rate FiO2 12/21/17 10:19 25 12/21/17 08:00 99.5 88 14 125/78 (94) 99 12/21/17 07:00 88 12/21/17 04:00 98.2 78 18 125/78 (94) 97 12/20/17 23:00 78 12/20/17 20:00 99.6 78 14 121/71 (88) 100 12/20/17 20:00 123 12/20/17 16:00 98.8 78 20 134/69 (90) 99 12/20/17 15:00 78 I/O 12/20/17 12/20/17 12/20/17 12/21/17 12/21/17 12/21/17 06:59 14:59 22:59 06:59 14:59 22:59 Intake Total 738 ml 500 ml 1216 ml Output Total 1000 ml 800 ml Balance -262 ml 500 ml 416 ml Intake Oral 200 ml 500 ml 300 ml IV Total 538 ml 916 ml Output Urine Total 1000 ml 800 ml # Bowel Movements 1 Result Diagram: 12/20/17 1006 12/20/17 1006 Imaging Last 48 hours Impressions Knee X-Ray 12/18/17 0734 Signed Impressions: Service Date/Time: Monday, December 18, 2017 11:03 - CONCLUSION: Status post total knee arthroplasty. Brendan Carrasco MD FACR Objective Remarks Dressing dry and intact. NV intact to toes. No calf tenderness. In bed at present. Assessment & Plan Ortho Post Op Day #: 3 Problem List: Assessment and Plan Getting workup by medical for tachycardia. Cont PT and daily wound care. Home today after seen by pile trimmer. Yovana Bobby MD Dec 21, 2017 12:08
--- NOTE | 2017-12-21 12:12 | HHI.DS ---
Discharge Summary Admission Date Dec 18, 2017 at 05:24 Discharge Date: Dec 21, 2017 Admitting Diagnosis Osteoarthritic degeneration left knee Diagnosis: (1) Status post total left knee replacement Diagnosis: Principal ICD Codes: Z96.652 - Presence of left artificial knee joint Brief History This is a 67 year old male patient CBC/BMP: 12/20/17 1006 12/20/17 1006 Significant Findings Laboratory Tests Test 12/19/17 01:25 12/19/17 12:00 12/20/17 03:57 12/20/17 10:06 White Blood Count 11.1 TH/MM3 (4.0-11.0) Red Blood Count 3.81 MIL/MM3 (4.50-5.90) 3.50 MIL/MM3 (4.50-5.90) Hemoglobin 11.9 GM/DL (13.0-17.0) 11.4 GM/DL (13.0-17.0) 10.9 GM/DL (13.0-17.0) Hematocrit 34.4 % (39.0-51.0) 32.5 % (39.0-51.0) 31.8 % (39.0-51.0) Neutrophils (%) (Auto) 76.7 % (16.0-70.0) 76.2 % (16.0-70.0) Monocytes (%) (Auto) 9.7 % (0.0-8.0) Neutrophils # (Auto) 8.5 TH/MM3 (1.8-7.7) Monocytes # (Auto) 1.1 TH/MM3 (0-0.9) Blood Urea Nitrogen 23 MG/DL (7-18) 21 MG/DL (7-18) Creatinine 1.46 MG/DL (0.60-1.30) 1.37 MG/DL (0.60-1.30) Calcium Level 8.1 MG/DL (8.5-10.1) Estimat Glomerular Filtration Rate 48 ML/MIN (>89) 52 ML/MIN (>89) Urine Glucose (UA) 300 mg/dL (NEG) Urine Bacteria RARE /hpf (NONE) Random Glucose 235 MG/DL (74-106) Albumin 3.3 GM/DL (3.4-5.0) Alkaline Phosphatase 35 U/L (45-117) Sodium Level 134 MEQ/L (136-145) PE at Discharge Dressing dry and intact. NV intact to toes. No calf tenderness. In bed at present. Hospital Course Patient underwent a left total knee arthroplasty on day of admission. He received a course of prophylactic IV antibiotics and within 23 hours started anticoagulation therapy. He continued to improve but is vital signs showed tachycardia for which she was seen by cardiology and medical team and moved to the intensive care for further workup and stabilization. His tachycardia resolved with medication and he continued to improve tolerating food and fluid well by mouth pain meds. He was discharged on third postoperative day in good condition after seen by cardiology with instructions for home healthcare physical therapy and follow-up in the office. Pt Condition on Discharge: Good Discharge Disposition: Disch w/ Home Health Serv Discharge Instructions Diet Instructions: Heart Healthy Diet Activities You Can Perform: Full Weight Bearing, Shower Only-No Bath Activities to Avoid: Bathing, Driving Yovana Bobby MD Dec 21, 2017 12:12
== END 2017-12-21 13:27 | disposition home health service (06) | DRG 470 ==
LOC: HSDI 05:24 → N06A 11:39 → N03B 12-19 18:58
PROVIDERS: ADMIT Surgery; ATTEND Surgery
PROC: 3E0T3BZ Introduction of Anesthetic Agent into Peripheral Nerves and Plexi, Percutaneous Approach (ICD-10-PCS; 2017-12-18)
PROC: 0SRD0J9 Replacement of Left Knee Joint with Synthetic Substitute, Cemented, Open Approach (ICD-10-PCS; principal; 2017-12-18 07:23)
DX: M17.12 Unilateral primary osteoarthritis, left knee (principal); I47.1 Supraventricular tachycardia; I10 Essential (primary) hypertension; F10.230 Alcohol dependence with withdrawal, uncomplicated; E78.00 Pure hypercholesterolemia, unspecified; E11.9 Type 2 diabetes mellitus without complications; N28.9 Disorder of kidney and ureter, unspecified; R50.9 Fever, unspecified; Z79.84 Long term (current) use of oral hypoglycemic drugs
CPT/HCPCS: 71045; 73560; 76937; 80048; 80053; 81001; 82948; 83735; 85014; 85018; 85025; 86850; 86900; 86901; 87040; 93005; 94150; C1776; C9290; J0153; J0282; J0690; J1100; J1815; J2060; J2250; J2405; J2795; J3010; J3370; J7030; J7050; J7120; L1830

== ENCOUNTER 2017-12-23 13:59 | Inpatient (IN) | payer MEDICARE ==
[~2017-12-23] VITALS: Ht 175.3 cm; Wt 84.5 kg
[2017-12-23] VITALS (17 sets, daily range): BP systolic 104–145; BP diastolic 61–95; PULSE 74–163; RESP 12–22; TEMP 99.1–100.2; O2SAT 98–100
[~2017-12-23 13:59] MED LIST changes: +ADJUSTABLE COMM1 MIS; -ALEV220T14 PO; +CPMMACHINE; +WALKER WHEELS/F1 MIS
[2017-12-23] MEDS ORDERED: SODIUM CHLORID 0.9% 500 ML INJ 500 ML IV ONE (14:15)
[2017-12-23] MEDS ORDERED: HYDR-4107 PO (14:24)
[2017-12-23] MEDS ORDERED: APIX5TAB PO (14:24)
[2017-12-23] MEDS: SODIUM CHLORIDE 0.9% FLUSH 10 ML FLUSH IVF PRN ×2 (14:34→15:27)
[2017-12-23] MEDS ORDERED: DILTIAZEM HCL 25 MG/5 ML VIAL IV ONE (14:45)
--- NOTE | 2017-12-23 15:07 | PD ---
HPI Chief Complaint: Cardiac Complaint Time Seen by Provider: 14:06 Travel History International Travel<30 days: No Contact w/Intl Traveler<30days: No Traveled to known affect area: No History of Present Illness HPI The patient is a 67-year-old male who presents to the emergency department for elevated heart rate. The patient states he just recently underwent left knee replacement by his orthopedist, Dr. Bobby. Patient was just discharged from the hospital yesterday after admission to the intensive care unit for tachycardia. The patient states that they gave him medications twice that stopped his heart, he did not like the feeling of those medications. The patient's subsequent discharged home. However, he noticed earlier today is heart rate was elevated, he started walking, and his heart rate increased. He does complain of mild palpitations and some chest discomfort without any outright shortness of breath. He denies any lightheadedness, dizziness, or presyncopal symptoms. He does have a history of hypertension and hyperlipidemia. Symptoms are mild to moderate, possibly exacerbated after recent surgery, there are no current alleviating factors. PFSH Past Medical History Arthritis: Yes Cancer: No Cardiovascular Problems: Yes High Cholesterol: Yes Diabetes: Yes Patient Takes Glucophage: Yes Diminished Hearing: No Endocrine: Yes Genitourinary: No Hepatitis: Yes (hep a ) Hiatal Hernia: No Hypertension: Yes Immune Disorder: No Musculoskeletal: Yes (arthritis in both knees, neck pain with l arm weakness) Neurologic: Yes (l hand numbness ) Psychiatric: No Reproductive: No Respiratory: No Thyroid Disease: No Past Surgical History Abdominal Surgery: No AICD: No Body Medical Devices: screws in l shoulder Cardiac Surgery: No Ear Surgery: No Endocrine Surgery: No Eye Surgery: No Genitourinary Surgery: Yes (scrotal cyst removal) Gynecologic Surgery: No Joint Replacement: Yes (LEFT TOTAL KNEE 12/2017/RIGHT TOTAL KNEE 02/2017) Oral Surgery: No Pacemaker: No Tonsillectomy: Yes ( A CHILD) Other Surgery: Yes (CYST REMOVED FROM TESTICLE 2003) Social History Alcohol Use: Yes Tobacco Use: No Substance Use: No Allergies-Medications (Allergen,Severity, Reaction): Coded Allergies: No Known Allergies (Verified Allergy, Unknown, 12/23/17) Reported Meds & Prescriptions Reported Meds & Active Scripts Active Reported Hydrocodone-Acetaminophen 5-300 Mg Tab 1 Tab PO Q6H PRN Eliquis (Apixaban) 5 Mg Tab Unknown Dose PO BID Niacin ER 1,000 Mg Tab 1,000 Mg PO HS Fenofibric Acid 105 Mg Tab 135 Mg PO DAILY Hydrochlorothiazide 25 Mg Tab 25 Mg PO DAILY Glyburide 2.5 Mg Tab 2.5 Mg PO BID Take with meals at the same time each day Telmisartan 40 Mg Tab 80 Mg PO DAILY Metformin (Metformin HCl) 500 Mg Tab 500 Mg PO BIDPC With meals Review of Systems Except as stated in HPI: all other systems reviewed are Neg Eyes: No: Blurred Vision HENT: Positive: Headaches, No: Lightheadedness Cardiovascular: Positive: Chest Pain or Discomfort, Tachycardia, No: Diaphoresis Respiratory: No: Shortness of Breath Gastrointestinal: No: Nausea, Vomiting, Abdominal Pain Musculoskeletal: Positive: Edema Physical Exam Narrative GENERAL: Awake, alert, pleasant 67-year-old male who appears his stated age and is in no acute respiratory distress. SKIN: Focused skin assessment warm/dry. HEAD: Atraumatic. Normocephalic. EYES: Pupils equal and round. No scleral icterus. No injection or drainage. ENT: No nasal bleeding or discharge. Mucous membranes pink and moist. NECK: Trachea midline. No JVD. CARDIOVASCULAR: Regular, tachycardic with a heart rate in the 140s. No audible murmur noted. RESPIRATORY: No accessory muscle use. Clear to auscultation. Breath sounds equal bilaterally. GASTROINTESTINAL: Abdomen soft, non-tender, nondistended. No rebound tenderness. MUSCULOSKELETAL: Steri-Strips in place of the anterior aspect left knee over scar. Edema noted in the left knee and left lower extremity including left foot. NEUROLOGICAL: Awake and alert. No obvious cranial nerve deficits. Motor grossly within normal limits. Normal speech. Nonfocal. Oriented 4. PSYCHIATRIC: Appropriate mood and affect; insight and judgment normal. Data Data Last Documented VS Vital Signs Date Time Temp Pulse Resp B/P (MAP) Pulse Ox O2 Delivery O2 Flow Rate FiO2 12/23/17 15:00 136 13 116/72 (87) 99 Room Air 12/23/17 14:15 2.00 12/23/17 14:01 99.1 Orders Orders Electrocardiogram (12/23/17 14:12) Ckmb (Isoenzyme) Profile (12/23/17 14:12) Complete Blood Count With Diff (12/23/17 14:12) Comprehensive Metabolic Panel (12/23/17 14:12) Magnesium (Mg) (12/23/17 14:12) Prothrombin Time / Inr (Pt) (12/23/17 14:12) Act Partial Throm Time (Ptt) (12/23/17 14:12) Troponin I (12/23/17 14:12) Chest, Single Ap (12/23/17 14:12) Ecg Monitoring (12/23/17 14:12) Bilateral Bp Monitoring (12/23/17 14:12) Iv Access Insert/Monitor (12/23/17 14:12) Oximetry (12/23/17 14:12) Oxygen Administration (12/23/17 14:12) Sodium Chloride 0.9% Flush (Ns Flush) (12/23/17 14:15) Sodium Chlorid 0.9% 500 Ml Inj (Ns 500 M (12/23/17 14:15) Ct Pulmonary Angiogram (12/23/17 ) Diltiazem Inj (Cardizem Inj) (12/23/17 14:45) Metoprolol Tartrate Inj (Lopressor Inj) (12/23/17 15:15) CKMB (12/23/17 14:15) CKMB% (12/23/17 14:15) Iohexol 350 Inj (Omnipaque 350 Inj) (12/23/17 15:49) Heparin Inj (Heparin Inj) (12/23/17 16:23) Heparin Inj (Heparin Inj) (12/23/17 22:30) Heparin Inj (Heparin Inj) (12/23/17 22:30) Heparin-D5w 25,000 U/250 Ml (Heparin-D5w (12/23/17 16:30) Act Partial Throm Time (Ptt) (12/23/17 16:23) Cbc No Diff, Includes Plts (12/23/17 16:23) Cbc No Diff, Includes Plts (12/26/17 06:00) Act Partial Throm Time (Ptt) (12/23/17 23:23) Occult Blood (Hemoccult) Stool (12/23/17 16:23) Admit To Inpatient (12/23/17 ) Code Status (12/23/17 16:34) Vital Signs (Adult) Q4H (12/23/17 16:34) Activity Oob Ad Lise (12/23/17 16:34) Bedside Glucose KELI.CSUGAR (12/23/17 16:34) Software Publisher / Telemetry .CONTINUOUS (12/23/17 16:34) Intake + Output KELI.QSHIFT (12/23/17 16:34) Notify Dr: Other (12/23/17 16:34) Diet 1800 Ada Cons Carb (12/23/17 Dinner) Sodium Chloride 0.9% Flush (Ns Flush) (12/23/17 16:45) Sodium Chloride 0.9% Flush (Ns Flush) (12/23/17 21:00) Acetaminophen (Tylenol) (12/23/17 16:45) Ondansetron Inj (Zofran Inj) (12/23/17 16:45) Basic Metabolic Panel (Bmp) (12/24/17 06:00) Complete Blood Count With Diff (12/24/17 06:00) Creatine Kinase (Cpk) (12/23/17 16:34) Creatine Kinase (Cpk) (12/23/17 22:34) Troponin I (12/23/17 16:34) Troponin I (12/23/17 22:34) Prothrombin Time / Inr (Pt) (12/24/17 06:00) Urinalysis - C+S If Indicated (12/23/17 16:34) Resp Oxygen Humphrey C Titrat 1-4 L (12/23/17 ) Pt Request For Service (12/23/17 16:34) Case Management Consult (12/23/17 16:34) Naloxone Inj (Narcan Inj) (12/23/17 16:45) Sennosides (Senokot) (12/23/17 16:45) Bisacodyl Supp (Dulcolax Supp) (12/23/17 16:45) Lactulose Liq (Lactulose Liq) (12/23/17 16:45) Inpatient Certification (12/23/17 ) Hydrochlorothiazide (Hydrodiuril) (12/24/17 09:00) (Nf) Fenofibric Acid (12/24/17 09:00) (Nf) Hydrocodone-Acetaminophen (12/23/17 16:45) (Nf) Niacin Er (12/23/17 21:00) (Nf) Telmisartan (12/24/17 09:00) Admit Order (Ed Use Only) (12/23/17 16:38) Labs Laboratory Tests Test 12/23/17 14:15 White Blood Count 6.3 TH/MM3 Red Blood Count 3.36 MIL/MM3 Hemoglobin 10.4 GM/DL Hematocrit 30.1 % Mean Corpuscular Volume 89.6 FL Mean Corpuscular Hemoglobin 30.8 PG Mean Corpuscular Hemoglobin Concent 34.4 % Red Cell Distribution Width 12.6 % Platelet Count 319 TH/MM3 Mean Platelet Volume 7.9 FL Neutrophils (%) (Auto) 75.2 % Lymphocytes (%) (Auto) 16.2 % Monocytes (%) (Auto) 6.8 % Eosinophils (%) (Auto) 1.3 % Basophils (%) (Auto) 0.5 % Neutrophils # (Auto) 4.7 TH/MM3 Lymphocytes # (Auto) 1.0 TH/MM3 Monocytes # (Auto) 0.4 TH/MM3 Eosinophils # (Auto) 0.1 TH/MM3 Basophils # (Auto) 0.0 TH/MM3 CBC Comment DIFF FINAL Differential Comment Prothrombin Time 9.9 SEC Prothromb Time International Ratio 1.0 RATIO Activated Partial Thromboplast Time 25.4 SEC Blood Urea Nitrogen 27 MG/DL Creatinine 1.51 MG/DL Random Glucose 183 MG/DL Total Protein 8.2 GM/DL Albumin 3.5 GM/DL Calcium Level 9.1 MG/DL Magnesium Level 2.1 MG/DL Alkaline Phosphatase 48 U/L Aspartate Amino Transf (AST/SGOT) 21 U/L Alanine Aminotransferase (ALT/SGPT) 15 U/L Total Bilirubin 0.6 MG/DL Sodium Level 134 MEQ/L Potassium Level 3.7 MEQ/L Chloride Level 99 MEQ/L Carbon Dioxide Level 27.2 MEQ/L Anion Gap 8 MEQ/L Estimat Glomerular Filtration Rate 47 ML/MIN Total Creatine Kinase 213 U/L Creatine Kinase MB 0.7 NG/ML Troponin I LESS THAN 0.02 NG/ML MDM Medical Decision Making Medical Screen Exam Complete: Yes Emergency Medical Condition: Yes Medical Record Reviewed: Yes Interpretation(s) EKG reveals sinus tachycardia with a heart rate of 100. Nonspecific ST-T wave changes. Laboratory Tests Test 12/23/17 14:15 White Blood Count 6.3 TH/MM3 Red Blood Count 3.36 MIL/MM3 Hemoglobin 10.4 GM/DL Hematocrit 30.1 % Mean Corpuscular Volume 89.6 FL Mean Corpuscular Hemoglobin 30.8 PG Mean Corpuscular Hemoglobin Concent 34.4 % Red Cell Distribution Width 12.6 % Platelet Count 319 TH/MM3 Mean Platelet Volume 7.9 FL Neutrophils (%) (Auto) 75.2 % Lymphocytes (%) (Auto) 16.2 % Monocytes (%) (Auto) 6.8 % Eosinophils (%) (Auto) 1.3 % Basophils (%) (Auto) 0.5 % Neutrophils # (Auto) 4.7 TH/MM3 Lymphocytes # (Auto) 1.0 TH/MM3 Monocytes # (Auto) 0.4 TH/MM3 Eosinophils # (Auto) 0.1 TH/MM3 Basophils # (Auto) 0.0 TH/MM3 CBC Comment DIFF FINAL Differential Comment Prothrombin Time 9.9 SEC Prothromb Time International Ratio 1.0 RATIO Activated Partial Thromboplast Time 25.4 SEC Blood Urea Nitrogen 27 MG/DL Creatinine 1.51 MG/DL Random Glucose 183 MG/DL Total Protein 8.2 GM/DL Albumin 3.5 GM/DL Calcium Level 9.1 MG/DL Magnesium Level 2.1 MG/DL Alkaline Phosphatase 48 U/L Aspartate Amino Transf (AST/SGOT) 21 U/L Alanine Aminotransferase (ALT/SGPT) 15 U/L Total Bilirubin 0.6 MG/DL Sodium Level 134 MEQ/L Potassium Level 3.7 MEQ/L Chloride Level 99 MEQ/L Carbon Dioxide Level 27.2 MEQ/L Anion Gap 8 MEQ/L Estimat Glomerular Filtration Rate 47 ML/MIN Total Creatine Kinase 213 U/L Creatine Kinase MB 0.7 NG/ML Troponin I LESS THAN 0.02 NG/ML Last Impressions Chest X-Ray 12/23/17 1412 Signed Impressions: Service Date/Time: Saturday, December 23, 2017 14:38 - CONCLUSION: No acute disease. No significant change has occurred. Eduar Malik MD CT Angiography 12/23/17 0000 Signed Impressions: Service Date/Time: Saturday, December 23, 2017 15:41 - CONCLUSION: Findings suggesting luminal defect thrombus subsegmental lateral aspect of the right lower lobe pulmonary artery basilar segment. Calcification left anterior descending coronary artery. 4 mm noncalcified pulmonary nodule right upper lobe anteriorly requiring [address] scan Eduar Malik MD Differential Diagnosis Differential diagnosis includes SVT, atrial fibrillation with RVR, arrhythmia, electrolyte abnormality, dehydration, preexcitation syndrome, pulmonary embolus. Narrative Course IV was established, labs are drawn and sent, and the patient was placed on cardiac telemetry monitoring and continuous pulse oximetry monitoring. EKG was ordered and interpreted. The patient initially was tachycardic, with Valsalva the patient's heart rate came down to 100, however, when back into the 140s. The patient was administered a dose of Cardizem, his heart rate came down into the 90s. However, the patient's heart rate returned back into the 130s. Therefore, CT pulmonary angiogram was ordered to rule out pulmonary embolism. Chest x-rays unremarkable. Laboratory evaluation is unremarkable. CT pulmonary angiogram is positive for pulmonary embolism right lower lobe. I discussed the patient with the on-call orthopedist for Dr. Bobby, Dr. Kim, who recommends admission to the medical service. I reviewed the EMR, the patient did have a consult by [facility] performed while he was in the hospital several days ago. Therefore, [facility] were paged for admission. Physician Communication Physician Communication [facility] were paged for admission. I discussed the patient Dr. Cortez who agrees with admission. Diagnosis Primary Impression: Pulmonary embolism Qualified Codes: I26.99 - Other pulmonary embolism without acute cor pulmonale Additional Impressions: Status post total left knee replacement Tachycardia Admitting Information Admitting Physician Requests: Admit Condition: Stable Devan Reaves MD Dec 23, 2017 15:07
[2017-12-23] MEDS ORDERED: METOPROLOL TARTRATE 5 MG/5 ML VIAL IV PUSH ONE (15:15)
[2017-12-23 15:17] LABS: AUTOMATED NEUTROPHIL # 4.7 TH/MM3 (1.8-7.7); BASOPHIL % 0.5 % (0.0-2.0); EOSINOPHIL # 0.1 TH/MM3 (0-0.4); EOSINOPHIL % 1.3 % (0.0-4.0); HEMATOCRIT 30.1 % (39.0-51.0); HEMOGLOBIN 10.4 GM/DL (13.0-17.0); LYMPH % 16.2 % (9.0-44.0); MEAN CELL VOLUME 89.6 FL (80.0-100.0); MEAN CORPUSCULAR HEMOGLOBIN 30.8 PG (27.0-34.0); MEAN CORPUSCULAR HGB CONC 34.4 % (32.0-36.0); MEAN PLATELET VOLUME 7.9 FL (7.0-11.0); MONO % 6.8 % (0.0-8.0); MONOCYTE # 0.4 TH/MM3 (0-0.9); NEUT % 75.2 % (16.0-70.0); PLATELET COUNT 319 TH/MM3 (150-450); RED BLOOD COUNT 3.36 MIL/MM3 (4.50-5.90); RED CELL DISTRIBUTION WIDTH 12.6 % (11.6-17.2); WHITE BLOOD COUNT 6.3 TH/MM3 (4.0-11.0)
[2017-12-23 15:18] LABS: PROTHROMBIN TIME - PATIENT 9.9 SEC (9.8-11.6)
[2017-12-23 15:24] LABS: ALBUMIN 3.5 GM/DL (3.4-5.0); ALT (GPT) 15 U/L (12-78); AST (GOT) 21 U/L (15-37); BICARBONATE 27.2 MEQ/L (21.0-32.0); BLOOD UREA NITROGEN 27 MG/DL (7-18); CALCIUM 9.1 MG/DL (8.5-10.1); CHLORIDE 99 MEQ/L (98-107); CREATININE 1.51 MG/DL (0.60-1.30); GLOMERULAR FILTRATION RATE 47 ML/MIN (>89); GLUCOSE,RANDOM 183 MG/DL (74-106); MAGNESIUM 2.1 MG/DL (1.5-2.5); SODIUM (NA) 134 MEQ/L (136-145)
[2017-12-23 15:28] LABS: ALKALINE PHOSPHATASE 48 U/L (45-117); TOTAL BILIRUBIN ADULT 0.6 MG/DL (0.2-1.0); TOTAL PROTEIN 8.2 GM/DL (6.4-8.2); TROPONIN I LESS THAN 0.02 NG/ML (0.02-0.05)
[2017-12-23] MEDS ORDERED: IOHEXOL 350 MG/ML 10 ML VIAL (for RAD DIAG) IVCONTRAST ONE (15:49)
--- NOTE | 2017-12-23 15:56 | RADRPT ---
EXAM DATE/TIME: 12/23/2017 14:38 [facility] COMPARISON: CHEST SINGLE AP, December 19, 2017, 11:34. INDICATIONS : Chest pain. MEDICAL HISTORY : Hypertension. Diabetes mellitus type 2. Hypercholesterolemia SURGICAL HISTORY : Total left knee replacement. ENCOUNTER: Initial ACUITY: 2 days PAIN SCORE: 1/10 LOCATION: Bilateral chest FINDINGS: A single view of the chest demonstrates the lungs to be symmetrically aerated without evidence of mas s, infiltrate or effusion. The cardiomediastinal contours are unremarkable. Osseous structures are intact. CONCLUSION: No acute disease. No significant change has occurred. Eduar Malik MD on December 23, 2017 at 15:53 Board Certified Radiologist. This report was verified electronically.
--- NOTE | 2017-12-23 16:10 | RADRPT ---
EXAM DATE/TIME: 12/23/2017 15:41 [facility] COMPARISON: CHEST SINGLE AP, December 23, 2017, 14:38. INDICATIONS : Tachycardia following knee replacement. IV CONTRAST: 73 cc Omnipaque 350 (iohexol) IV RADIATION DOSE: 20.16 CTDIvol (mGy) MEDICAL HISTORY : Cardiovascular disease. Diabetes mellitus type 2. Hepatitis A.SVT, hypertension. SURGICAL HISTORY : None. ENCOUNTER: Initial ACUITY: 1 day PAIN SCALE: 0/10 LOCATION: chest TECHNIQUE: Volumetric scanning of the chest was performed using a pulmonary embolism protocol MIP images were re constructed. Using automated exposure control and adjustment of the mA and/or kV according to patien t size, radiation dose was kept as low as reasonably achievable to obtain optimal diagnostic quality images. DICOM format image data is available electronically for review and comparison. Follow-up recommendations for detected pulmonary nodules are based at a minimum on nodule size and pa tient risk factors according to Fleischner Society Guidelines. FINDINGS: PULMONARY ARTERIES: Findings suggesting luminal defects pulmonary embolism lateral segment of the right lower lobe artery . LUNGS: There is no consolidation or pneumothorax . No concerning pulmonary nodule is visualized. 4 mm nodul e anteriorly in the right upper lobe PLEURAE: There is no pleural thickening or pleural effusion. MEDIASTINUM: There is good visualization of the great vessels of the middle mediastinum. No evidence of mediastin al or hilar adenopathy/mass. Calcification in the mid left anterior descending coronary artery. MUSCULOSKELETAL: Within normal limits for patient age. MISCELLANEOUS: The visualized upper abdominal organs demonstrate no acute abnormality. CONCLUSION: Findings suggesting luminal defect thrombus subsegmental lateral aspect of the right lower lobe pulmo nary artery basilar segment. Calcification left anterior descending coronary saad ry. 4 mm noncalcified pulmonary nodule right upper lobe anteriorly requiring [address] scan Eduar Malik MD on December 23, 2017 at 15:58 Board Certified Radiologist. This report was verified electronically.
[2017-12-23] MEDS ORDERED: HEPARIN - 10,000 UNITS/ML IV ADDITIVE IV PUSH STA (16:23)
--- NOTE | 2017-12-23 16:38 | HHI.HP ---
[facility] Service [facility] Primary Care Physician Carmela Ramirez Jr, MD Admission Diagnosis Diagnoses: Chief Complaint: Tachycardia Travel History International Travel<30 Days: No Contact w/Intl Traveler <30 Da: No Traveled to Known Affected Are: No History of Present Illness This is a pleasant 67 y/o male with complaint of tachycardia, The patient states he just recently underwent left knee replacement by his orthopedist, Dr. Bobby. Patient was just discharged from the hospital yesterday after admission to the intensive care unit for tachycardia. The patient states that they gave him medications twice that stopped his heart, he did not like the feeling of those medications. The patient's subsequent discharged home. However, he noticed earlier today is heart rate was elevated, he started walking , and his heart rate increased. He does complain of mild palpitations and some chest discomfort without any outright shortness of breath. He denies any lightheadedness, dizziness, or presyncopal symptoms. He does have a history of hypertension and hyperlipidemia. he was recently discharged from this facility two days ago, December 21 2017 admitted December 18, with Diagnosis of osteoarthritis degenerative left knee status post Left Total knee replacement, on Apixaban, was found to have Pulmonary Emboli, started on Heparin drip, discussed with patient and relatives he will be seen by Orthopedic surgery while in house, also continue with Tachycardia probably related to his Pulmonary Emboli, was given Cardizem and Metoprolol he was seen by Doctor Minor extracorporeal circulation specialist will back to consult Cardiology on this admission. Review of Systems Constitutional: DENIES: Fever, Chills, Change in appetite Endocrine: DENIES: Heat/cold intolerance Eyes: DENIES: Blurred vision, Eye pain Cardiovascular: COMPLAINS OF: Palpitations Past Family Social History Past Medical History OA hyperlipidemia DM II Hypertension Past Surgical History Scrotal cyst removal 2003 Left shoulder surgery left total knee replacement 12/2017 Right total knee replacement 02/2017 Tonsillectomy Reported Medications Reported Meds & Active Scripts Active Reported Hydrocodone-Acetaminophen 5-300 Mg Tab 1 Tab PO Q6H PRN Eliquis (Apixaban) 5 Mg Tab Unknown Dose PO BID Niacin ER 1,000 Mg Tab 1,000 Mg PO HS Fenofibric Acid 105 Mg Tab 135 Mg PO DAILY Hydrochlorothiazide 25 Mg Tab 25 Mg PO DAILY Glyburide 2.5 Mg Tab 2.5 Mg PO BID Take with meals at the same time each day Telmisartan 40 Mg Tab 80 Mg PO DAILY Metformin (Metformin HCl) 500 Mg Tab 500 Mg PO BIDPC With meals Allergies: Coded Allergies: No Known Allergies (Verified Allergy, Unknown, 12/23/17) Active Ordered Medications Current Medications Medications (Trade) Dose Ordered Sig/Magalie Route Start Time Stop Time Status Last Admin (NS Flush) 2 ml UNSCH PRN IVF 12/23/17 14:15 12/23/17 15:27 (Heparin Inj) 5,000 units UNSCH PRN IV 12/23/17 22:30 (Heparin Inj) 2,500 units UNSCH PRN IV 12/23/17 22:30 Heparin Sodium/ Dextrose 250 ml @ 10 mls/hr TITRATE PRN IV 12/23/17 16:30 (NS Flush) 2 ml UNSCH PRN IV FLUSH 12/23/17 16:45 (NS Flush) 2 ml BID IV FLUSH 12/23/17 21:00 (Tylenol) 650 mg Q4H PRN PO 12/23/17 16:45 (Zofran Inj) 4 mg Q6H PRN IVP 12/23/17 16:45 (Narcan Inj) 0.4 mg UNSCH PRN IV PUSH 12/23/17 16:45 (Senokot) 17.2 mg Q12H PRN PO 12/23/17 16:45 (Dulcolax Supp) 10 mg DAILY PRN RECTAL 12/23/17 16:45 (Lactulose Liq) 30 ml DAILY PRN PO 12/23/17 16:45 (Hydrodiuril) 25 mg DAILY PO 12/24/17 09:00 (Tricor) 145 mg DAILY PO 12/24/17 09:00 (Ronda 5-325 Mg) 1 tab Q6H PRN PO 12/23/17 17:15 (Slo-Niacin) 1,000 mg HS PO 12/23/17 21:00 (Cozaar) 100 mg DAILY PO 12/24/17 09:00 (NovoLOG SUPPLEMENTAL SCALE) 1 ACHS SLIDING SCALE SQ 12/23/17 17:00 (Lopressor Inj) 5 mg ONCE ONCE IV PUSH 12/23/17 17:15 12/23/17 17:16 Family History Asked denied Social History Alcohol abuse 4 to 5 beers daily until last admission denies tobacco abuse or other toxic habit. Physical Exam Vital Signs Vital Signs Date Time Temp Pulse Resp B/P (MAP) Pulse Ox O2 Delivery O2 Flow Rate FiO2 12/23/17 15:00 136 13 116/72 (87) 99 Room Air 12/23/17 14:47 89 13 104/61 (75) 100 Room Air 12/23/17 14:24 104 14 128/73 (91) 99 Room Air 12/23/17 14:16 101 14 145/87 (106) 100 Room Air 138/78 (98) 12/23/17 14:15 Nasal Cannula 2.00 12/23/17 14:15 99 Room Air 12/23/17 14:01 99.1 163 18 129/94 (106) 100 Physical Exam GENERAL: Awake, alert, pleasant 67-year-old male who appears his stated age and is in no acute respiratory distress. SKIN: Focused skin assessment warm/dry. HEAD: Atraumatic. Normocephalic. EYES: Pupils equal and round. No scleral icterus. No injection or drainage. ENT: No nasal bleeding or discharge. Mucous membranes pink and moist. NECK: Trachea midline. No JVD. CARDIOVASCULAR: Regular, tachycardic with a heart rate in the 140s. No audible murmur noted. RESPIRATORY: No accessory muscle use. Clear to auscultation. Breath sounds equal bilaterally. GASTROINTESTINAL: Abdomen soft, non-tender, nondistended. No rebound tenderness. MUSCULOSKELETAL: Steri-Strips in place of the anterior aspect left knee over scar. Edema noted in the left knee and left lower extremity including left foot. NEUROLOGICAL: Awake and alert. No obvious cranial nerve deficits. Motor grossly within normal limits. Normal speech. Nonfocal. Oriented 4. PSYCHIATRIC: Appropriate mood and affect; insight and judgment normal. Laboratory Laboratory Tests Test 12/23/17 14:15 White Blood Count 6.3 Red Blood Count 3.36 Hemoglobin 10.4 Hematocrit 30.1 Mean Corpuscular Volume 89.6 Mean Corpuscular Hemoglobin 30.8 Mean Corpuscular Hemoglobin Concent 34.4 Red Cell Distribution Width 12.6 Platelet Count 319 Mean Platelet Volume 7.9 Neutrophils (%) (Auto) 75.2 Lymphocytes (%) (Auto) 16.2 Monocytes (%) (Auto) 6.8 Eosinophils (%) (Auto) 1.3 Basophils (%) (Auto) 0.5 Neutrophils # (Auto) 4.7 Lymphocytes # (Auto) 1.0 Monocytes # (Auto) 0.4 Eosinophils # (Auto) 0.1 Basophils # (Auto) 0.0 CBC Comment DIFF FINAL Differential Comment Prothrombin Time 9.9 Prothromb Time International Ratio 1.0 Activated Partial Thromboplast Time 25.4 Blood Urea Nitrogen 27 Creatinine 1.51 Random Glucose 183 Total Protein 8.2 Albumin 3.5 Calcium Level 9.1 Magnesium Level 2.1 Alkaline Phosphatase 48 Aspartate Amino Transf (AST/SGOT) 21 Alanine Aminotransferase (ALT/SGPT) 15 Total Bilirubin 0.6 Sodium Level 134 Potassium Level 3.7 Chloride Level 99 Carbon Dioxide Level 27.2 Anion Gap 8 Estimat Glomerular Filtration Rate 47 Total Creatine Kinase 213 Creatine Kinase MB 0.7 Troponin I LESS THAN 0.02 Result Diagram: 12/23/17 1415 12/23/17 1415 Imaging Last Impressions Chest X-Ray 12/23/17 1412 Signed Impressions: Service Date/Time: Saturday, December 23, 2017 14:38 - CONCLUSION: No acute disease. No significant change has occurred. Eduar Malik MD CT Angiography 12/23/17 0000 Signed Impressions: Service Date/Time: Saturday, December 23, 2017 15:41 - CONCLUSION: Findings suggesting luminal defect thrombus subsegmental lateral aspect of the right lower lobe pulmonary artery basilar segment. Calcification left anterior descending coronary artery. 4 mm noncalcified pulmonary nodule right upper lobe anteriorly requiring [address] scan Eduar Malik MD Caprini VTE Risk Assessment Caprini VTE Risk Assessment: Mod/High Risk (score >= 2) Caprini Risk Assessment Model Point Value = 1 Point Value = 2 Point Value = 3 Point Value = 5 Age 41-60 Minor surgery BMI > 25 kg/m2 Swollen legs Varicose veins or History of unexplained or recurrent spontaneous Oral contraceptives or hormone replacement Sepsis (< 1 month) Serious lung disease, including pneumonia (< 1 month) Abnormal pulmonary function Acute myocardial infarction Congestive heart failure (< 1 month) History of inflammatory bowel disease Medical patient at bed rest Age 61-74 Arthroscopic surgery Major open surgery (> 45 min) Laparoscopic surgery (> 45 min) Malignancy Confined to bed (> 72 hours) Immobilizing plaster cast Central venous access Age >= 75 History of VTE Family history of VTE Factor V Leiden Prothrombin [id number] Lupus anticoagulant Anticardiolipin antibodies Elevated serum homocysteine Heparin-induced thrombocytopenia Other congenital or acquired thrombophilia Stroke (< 1 month) Elective arthroplasty Hip, pelvis, or leg fracture Acute spinal cord injury (< 1 month) Prophylaxis Regimen Total Risk Factor Score Risk Level Prophylaxis Regimen 0-1 Low Early ambulation 2 Moderate Order ONE of the following: *Sequential Compression Device (SCD) *Heparin 5000 units SQ BID 3-4 Higher Order ONE of the following medications: *Heparin 5000 units SQ TID *Enoxaparin/Lovenox 40 mg SQ daily (WT < 150 kg, CrCl > 30 mL/min) *Enoxaparin/Lovenox 30 mg SQ daily (WT < 150 kg, CrCl > 10-29 mL/min) *Enoxaparin/Lovenox 30 mg SQ BID (WT < 150 kg, CrCl > 30 mL/min) AND/OR *Sequential Compression Device (SCD) 5 or more Highest Order ONE of the following medications: *Heparin 5000 units SQ TID (Preferred with Epidurals) *Enoxaparin/Lovenox 40 mg SQ daily (WT < 150 kg, CrCl > 30 mL/min) *Enoxaparin/Lovenox 30 mg SQ daily (WT < 150 kg, CrCl > 10-29 mL/min) *Enoxaparin/Lovenox 30 mg SQ BID (WT < 150 kg, CrCl > 30 mL/min) AND *Sequential Compression Device (SCD) Assessment and Plan Assessment and Plan 1. Pulmonary Emboli the patient was discharged on Apixaban, at this time also with Tachycardia like when he was discharged from this facility two days ago, giving heparin. Embolism of the Right lower lobe as per CTA, discussed by ER physician with Doctor Bobby and Doctor Kim Orthopedic surgery recommended for admission 2. Tachycardia, SVT given Cardizem and Metoprolol by ER physician at this time continue with Heart rate in 129 giving metoprolol IV and following, also will start Metoprolol XL, consult extracorporeal circulation specialist. 3. Status post left Total knee arthroplasty, at this time with some erythema and edema, changes in calor and rubor, asked for Orthopedic Surgery and PT evaluation. has mild erythema on the foreleg but not on surgical area, asked for lactic acid, afebrile and no leukocytosis will follow off antibiotics by now and follow Orthopedic surgery recommendations, if Lactic acid elevated will start antibiotics. 4. DM II on hold home medicines continue sliding scale. 5. Hypertension controlled will place on hold ARB and Diuretic due to Acute kidney injury 6. Alcohol abuse: not drinking due to recent discharge and no need for CIWA protocol at this time 7. Acute kidney injury giving gentle diuresis and on hold ARB and diuretics. DVT prophylaxis with heparin. PT consult Cardiology consult blood cultures Orthopedic surgery consult. Code Status Full code. Discussed Condition With Devan Reaves MD Physician Certification 2 Midnight Certification Type: Admission for Inpatient Services Order for Inpatient Services The services are ordered in accordance with Medicare regulations or non- Medicare payer requirements, as applicable. In the case of services not specified as inpatient-only, they are appropriately provided as inpatient services in accordance with the 2-midnight benchmark. Estimated LOS (days): 3 days is the estimated time the patient will need to remain in the hospital, assuming treatment plan goals are met and no additional complications. Post-Hospital Plan: Not yet determined Rudy Rodriguez MD Dec 23, 2017 16:38
[2017-12-23] MEDS ORDERED: ONDANSETRON HCL 4 MG/2 ML VIAL IVP PRN (16:45)
[2017-12-23] MEDS ORDERED: SODIUM CHLORIDE 0.9% FLUSH 10 ML FLUSH IV FLUSH PRN (16:45)
[2017-12-23] MEDS ORDERED: NALOXONE HCL 0.4 MG/ML AMP IV PUSH PRN (16:45)
[2017-12-23] MEDS ORDERED: BISACODYL 10 MG SUPP RECTAL PRN (16:45)
[2017-12-23] MEDS ORDERED: LACTULOSE SYRUP 20 GM/30 ML CUP PO PRN (16:45)
[2017-12-23] MEDS ORDERED: ACETAMINOPHEN 325 MG TAB PO PRN (16:45)
[2017-12-23] MEDS ORDERED: SENNOSIDES 8.6 MG TAB PO PRN (16:45)
[2017-12-23] MEDS: INSULIN ASPART SUPPLEMENTAL SCALE SQ SCH ×2 (17:00→22:10)
[2017-12-23 17:14] LABS: BILIRUBIN, URINE NEG (NEG); BLOOD, URINE NEG (NEG); GLUCOSE,URINE NEG (NEG); KETONE, URINE NEG (NEG); NITRITE,URINE NEG (NEG); PH, URINE 6.5 (5.0-8.5); URINE COLOR LIGHT-YELLOW (YELLW/STRAW); URINE LEUKOCYTE ESTERASE NEG (NEG)
[2017-12-23] MEDS: METOPROLOL TARTRATE 5 MG/5 ML VIAL IV PUSH ONE ×2 (17:15→17:50)
[2017-12-23] MEDS: HEPARIN-D5W 25,000 U/250 ML 250 ML IV PRN (17:41)
[2017-12-23] MEDS ORDERED: HEPARIN SODIUM - IV 10,000 UNITS/10 ML VIAL IV ONE (17:45)
[2017-12-23] MEDS: METOPROLOL SUCCINATE 25 MG EXTENDED RELEASE TAB PO SCH (17:51)
[2017-12-23] MEDS: SODIUM CHLOR 0.9% 1000 ML INJ 1,000 ML IV SCH (18:39)
[2017-12-23] MEDS ORDERED: Vancomycin Consult Pharmacy 1 EA OTHER SCH (19:00)
[2017-12-23] MEDS ORDERED: VANCOMYCIN INJ 2,100 MG in SODIUM CHLORID 0.9% 500 ML INJ 500 ML IV ONE (20:00)
[2017-12-23] MEDS: CEFEPIME INJ 1,000 MG in SODIUM CHLORIDE 0.9% INJ 100 ML IV SCH (20:34)
[2017-12-23] MEDS: ACETAMINOPHEN/HYDROcodone 325 MG/5 MG TAB PO PRN (20:35)
[2017-12-23] MEDS: NIACIN 500 MG EXTENDED RELEASE TAB PO SCH (21:00)
[2017-12-23] MEDS: SODIUM CHLORIDE 0.9% FLUSH 10 ML FLUSH IV FLUSH SCH (22:10)
[2017-12-23] MEDS ORDERED: HEPARIN - 10,000 UNITS/ML IV ADDITIVE IV PRN (22:30)
[2017-12-24] VITALS (24 sets, daily range): BP systolic 121–132; BP diastolic 60–78; PULSE 70–128; RESP 16–18; TEMP 98.2–99.8; O2SAT 97–100
[2017-12-24 00:51] LABS: TROPONIN I LESS THAN 0.02 NG/ML (0.02-0.05)
[2017-12-24] MEDS: HEPARIN SODIUM - IV 10,000 UNITS/10 ML VIAL IV PRN ×3 (01:23→19:39)
[2017-12-24] MEDS ORDERED: METOPROLOL TARTRATE 5 MG/5 ML VIAL IV PUSH ONE (02:30)
[2017-12-24 04:36] LABS: AUTOMATED NEUTROPHIL # 3.6 TH/MM3 (1.8-7.7); BASOPHIL % 0.5 % (0.0-2.0); EOSINOPHIL # 0.1 TH/MM3 (0-0.4); EOSINOPHIL % 2.2 % (0.0-4.0); HEMOGLOBIN 9.2 GM/DL (13.0-17.0); LYMPH % 20.6 % (9.0-44.0); LYMPHOCYTE # 1.1 TH/MM3 (1.0-4.8); MEAN CELL VOLUME 89.7 FL (80.0-100.0); MEAN CORPUSCULAR HEMOGLOBIN 31.8 PG (27.0-34.0); MEAN CORPUSCULAR HGB CONC 35.4 % (32.0-36.0); MEAN PLATELET VOLUME 7.5 FL (7.0-11.0); MONO % 8.4 % (0.0-8.0); MONOCYTE # 0.4 TH/MM3 (0-0.9); NEUT % 68.3 % (16.0-70.0); PLATELET COUNT 279 TH/MM3 (150-450); RED BLOOD COUNT 2.91 MIL/MM3 (4.50-5.90); RED CELL DISTRIBUTION WIDTH 12.4 % (11.6-17.2); WHITE BLOOD COUNT 5.3 TH/MM3 (4.0-11.0)
[2017-12-24 04:48] LABS: BICARBONATE 25.2 MEQ/L (21.0-32.0); CALCIUM 8.4 MG/DL (8.5-10.1); CHOLESTEROL 156 MG/DL (120-200); CREATININE 1.33 MG/DL (0.60-1.30); TRIGLYCERIDES 201 MG/DL (42-150)
[2017-12-24] MEDS: ACETAMINOPHEN/HYDROcodone 325 MG/5 MG TAB PO PRN ×3 (04:48→21:01)
[2017-12-24 05:14] LABS: CHOLESTEROL/ HDL RATIO 4.12 RATIO; FOLATE 17.2 NG/ML (3.1-17.5); FREE T4 1.16 NG/DL (0.76-1.46); HDL CHOLESTEROL 37.8 MG/DL (40.0-60.0); LDL CHOLESTEROL 78 MG/DL (0-99); TROPONIN I LESS THAN 0.02 NG/ML (0.02-0.05)
--- NOTE | 2017-12-24 07:19 | HHI.PR ---
Subjective Remarks His last night, no fever overnight. Is not coughing is very tired. Has some pain in his right knee. Denies chest pain, shortness of breath, lightheadedness denies palpitations. Heart rate is better controlled. Denies nausea, vomiting, diarrhea or constipation Objective Vitals Vital Signs Date Time Temp Pulse Resp B/P (MAP) Pulse Ox O2 Delivery O2 Flow Rate FiO2 12/24/17 06:10 18 12/24/17 06:00 79 12/24/17 05:00 80 12/24/17 04:00 74 12/24/17 03:00 99.7 74 126/78 (94) 100 12/24/17 03:00 122 12/24/17 02:00 128 12/24/17 01:00 80 12/24/17 00:00 120 12/23/17 23:00 99.3 90 116/61 (79) 98 12/23/17 23:00 86 12/23/17 22:00 92 18 125/79 (94) 100 Nasal Cannula 2.00 12/23/17 22:00 92 16 125/79 (94) 100 Nasal Cannula 2.00 12/23/17 21:00 90 18 127/82 (97) 100 Nasal Cannula 2.00 12/23/17 20:00 132 18 126/77 (93) 100 Nasal Cannula 2.00 12/23/17 19:00 84 17 123/72 (89) 100 Nasal Cannula 2.00 12/23/17 18:49 83 17 130/73 (92) 99 Nasal Cannula 2.00 12/23/17 18:49 100.2 12/23/17 18:00 78 18 134/95 (108) 100 Nasal Cannula 2.00 12/23/17 17:30 84 16 135/75 (95) 100 Nasal Cannula 2.00 12/23/17 16:59 129 22 131/88 (102) 100 Nasal Cannula 2.00 12/23/17 16:00 74 12 122/86 (98) 99 Room Air 12/23/17 15:30 140 15 131/77 (95) 99 Room Air 12/23/17 15:00 136 13 116/72 (87) 99 Room Air 12/23/17 14:47 89 13 104/61 (75) 100 Room Air 12/23/17 14:24 104 14 128/73 (91) 99 Room Air 12/23/17 14:16 101 14 145/87 (106) 100 Room Air 138/78 (98) 12/23/17 14:15 Nasal Cannula 2.00 12/23/17 14:15 99 Room Air 12/23/17 14:01 99.1 163 18 129/94 (106) 100 I/O 12/23/17 12/23/17 12/23/17 12/24/17 12/24/17 12/24/17 07:00 15:00 23:00 07:00 15:00 23:00 Intake Total 936 ml 1321 ml Output Total 500 ml 650 ml Balance 436 ml 671 ml Intake Oral 360 ml IV Total 936 ml 961 ml Output Urine Total 500 ml 650 ml # Voids 1 1 # Bowel Movements 1 Result Diagram: 12/24/17 0404 12/24/17 0404 Imaging Last Impressions Chest X-Ray 12/23/17 1412 Signed Impressions: Service Date/Time: Saturday, December 23, 2017 14:38 - CONCLUSION: No acute disease. No significant change has occurred. Eduar Malik MD CT Angiography 12/23/17 0000 Signed Impressions: Service Date/Time: Saturday, December 23, 2017 15:41 - CONCLUSION: Findings suggesting luminal defect thrombus subsegmental lateral aspect of the right lower lobe pulmonary artery basilar segment. Calcification left anterior descending coronary artery. 4 mm noncalcified pulmonary nodule right upper lobe anteriorly requiring [address] scan Eduar Malik MD Objective Remarks GENERAL: Awake, alert, pleasant 67-year-old male who appears his stated age and is in no acute respiratory distress. CARDIOVASCULAR: Regular, tachycardic with a heart rate in the 140s. No audible murmur noted. RESPIRATORY: No accessory muscle use. Clear to auscultation. Breath sounds equal bilaterally. GASTROINTESTINAL: Abdomen soft, non-tender, nondistended. No rebound tenderness. MUSCULOSKELETAL: Steri-Strips in place of the anterior aspect left knee over scar. Edema noted in the left knee and left lower extremity including left foot. NEUROLOGICAL: Awake and alert. No obvious cranial nerve deficits. Motor grossly within normal limits. Normal speech. Nonfocal. Oriented 4. PSYCHIATRIC: Appropriate mood and affect; insight and judgment normal. A/P Assessment and Plan Pulmonary Emboli the patient was discharged on Apixaban, at this time also with Tachycardia like when he was discharged from this facility two days ago, giving heparin. Embolism of the Right lower lobe as per CTA, discussed by ER physician with Doctor Diamante and Doctor Julio Orthopedic surgery recommended for admission Tachycardia, SVT given Cardizem and Metoprolol by ER physician at this time continue with Heart rate in 129 giving metoprolol IV and following, also will start Metoprolol XL, consult transitional living specialist. Status post left Total knee arthroplasty, at this time with some erythema and edema, changes in calor and rubor, asked for Orthopedic Surgery and PT evaluation. has mild erythema on the foreleg but not on surgical area, asked for lactic acid, afebrile and no leukocytosis will follow off antibiotics by now and follow Orthopedic surgery recommendations, if Lactic acid elevated will start antibiotics. DM II on hold home medicines continue sliding scale. Hypertension controlled will place on hold ARB and Diuretic due to Acute kidney injury Alcohol abuse: not drinking due to recent discharge and no need for CIWA protocol at this time Acute kidney injury giving gentle diuresis and on hold ARB and diuretics. DVT prophylaxis with heparin. PT consult Cardiology consult Blood cultures pending, ff Orthopedic surgery consult. Code Status Full code. Discussed Condition With Patient, nurse Michelle Sterling MD Dec 24, 2017 07:19
[2017-12-24] MEDS: SODIUM CHLOR 0.9% 1000 ML INJ 1,000 ML IV SCH ×3 (07:33→21:00)
[2017-12-24] MEDS: CEFEPIME INJ 1,000 MG in SODIUM CHLORIDE 0.9% INJ 100 ML IV SCH ×2 (08:00→19:40)
[2017-12-24] MEDS: INSULIN ASPART SUPPLEMENTAL SCALE SQ SCH ×4 (08:00→22:09)
[2017-12-24] MEDS: SODIUM CHLORIDE 0.9% FLUSH 10 ML FLUSH IV FLUSH SCH ×2 (08:12→19:39)
[2017-12-24] MEDS: METOPROLOL SUCCINATE 25 MG EXTENDED RELEASE TAB PO SCH (08:23)
[2017-12-24] MEDS: FENOFIBRATE 145 MG TAB PO SCH (08:23)
[2017-12-24] MEDS ORDERED: HYDROCHLOROTHIAZIDE 25 MG TAB PO SCH (09:00)
[2017-12-24] MEDS ORDERED: LOSARTAN 50 MG TAB PO SCH (09:00)
[2017-12-24] MEDS: METOPROLOL TARTRATE 100 MG TAB PO SCH ×2 (09:30→21:01)
[2017-12-24] MEDS ORDERED: AMIODARONE INJ 150 MG in DEXTROSE 5% IN WATER 100ML INJ 100 ML IV ONE ×2 (09:30)
--- NOTE | 2017-12-24 10:19 | MB ---
cc: SHILPA SEWELL MD DATE OF CONSULTATION: 12/24/2017 HISTORY OF PRESENT ILLNESS This is a 67-year-old gentleman who is admitted to the hospital for tachycardia. He recently underwent a left knee replacement and his hospital course was complicated by recurrence of atrial tachycardia. He was initially treated with metoprolol and with the addition of amiodarone with fairly good control. He was discharged from the hospital and these were not continued. He has had recurrence of his tachycardia and is re-admitted. He was also begun on a short course of Eliquis postoperatively. He notes now that his knee is swollen and when he is upright feels it throbbing with significant warmth. No fever or chills has been present. He has had no chest pain or shortness of breath. Since his admission to the hospital he has been started on 25 mg of metoprolol succinate daily. He is currently in sinus rhythm, but does note that he has had periods of sinus tachycardia and/or atrial tachycardia since his admission. PAST MEDICAL HISTORY His past medical history has otherwise been significant for: 1. Type 2 diabetes. 2. Hyperlipidemia. 3. Hypertension. MEDICATION Medications at home include: 1. Glyburide. 2. Niacin. 3. Fenofibric acid. 4. Metformin. ALLERGIES None. SOCIAL HISTORY The patient does not smoke. He drinks 4-5 beers a day. Does not use recreational drugs. PHYSICAL EXAMINATION GENERAL: Now he is awake and alert. VITAL SIGNS: He is afebrile. Blood pressure is 122/70, pulse is 80 and regular. NECK: No neck vein distension is present. LUNGS: Clear. CARDIOVASCULAR: Exam reveals a regular rate and rhythm with no significant murmur or gallop noted. KNEE: His knee is somewhat swollen and warm to palpation. No erythema is noted. ASSESSMENT The patient has had recurrence of atrial tachycardia. Will reinstitute his metoprolol. Will give him a loading dose of amiodarone and begin a p.o. regimen in hopes to quiet his atrial tachycardia. Also ordered a ultrasound of his left lower extremity to rule out DVT. We do note that he is on heparin since his admission here and Eliquis has not been restarted. Further recommendations will depend on the outcome of his ultrasound as well as his clinical response to amiodarone. MD MARTHA Lewis/TRAVON /9:34 AM /9:56 AM
[2017-12-24] MEDS: AMIODARONE 200 MG TAB PO SCH ×2 (10:36→21:01)
--- NOTE | 2017-12-24 11:13 | RADRPT ---
EXAM DATE/TIME: 12/24/2017 10:25 [place] COMPARISON: No previous studies available for comparison. INDICATIONS : Left leg swelling. MEDICAL HISTORY : Cardiovascular disease. Diabetes mellitus type 2. Hepatitis A.SVT, HTN. SURGICAL HISTORY : None. ENCOUNTER: Initial ACUITY: 1 day PAIN SCORE: 4/10 LOCATION: Left leg. TECHNIQUE: Venous ultrasound of the leg was performed from the inguinal ligament to the proximal calf. Real-giovana e, color Doppler and spectral tracing, compression and augmentation techniques were used. FINDINGS: There is normal compressibility of the deep venous system from the inguinal region to the proximal ca lf. No echogenic clot is seen in the lumen of the common femoral, femoral, popliteal, and posterior tibial veins. There is a normal response of the venous system to proximal and distal augmentation an d respiration. CONCLUSION: Normal examination. Holly Cotter MD on December 24, 2017 at 11:10 Board Certified Radiologist. This report was verified electronically.
[2017-12-24 12:43] LABS: HEMOGLOBIN A1C 6.1 % (4.3-6.0)
[2017-12-24] MEDS: HEPARIN-D5W 25,000 U/250 ML 250 ML IV PRN (13:34)
--- NOTE | 2017-12-24 17:33 | EKG ---
Date Performed: 12/23/2017 Time Performed: 14:13:10 PTAGE: 67 years EKG: SINUS TACHYCARDIA POSSIBLE LEFT ATRIAL ENLARGEMENT NONSPECIFIC ST & T-WAVE ABNORMALITY ABNO RMAL RHYTHM ECG PREVIOUS TRACING : 12/19/2017 15.05 Compared to prior tracing, now sinus tachycardia DOCTOR: Marito Kelly Interpretating Date/Time 12/24/2017 17:31:48
[2017-12-24] MEDS: VANCOMYCIN INJ 1,250 MG in SODIUM CHLOR 0.9% 250 ML INJ 250 ML IV SCH (21:00)
[2017-12-24] MEDS: NIACIN 500 MG EXTENDED RELEASE TAB PO SCH (21:01)
[2017-12-25] VITALS (25 sets, daily range): BP systolic 108–133; BP diastolic 65–74; PULSE 61–114; RESP 16–17; TEMP 98.2–100.4; O2SAT 94–100
[2017-12-25] MEDS: HEPARIN SODIUM - IV 10,000 UNITS/10 ML VIAL IV PRN (01:22)
[2017-12-25 05:19] LABS: BICARBONATE 23.9 MEQ/L (21.0-32.0); CALCIUM 8.3 MG/DL (8.5-10.1); CREATININE 1.34 MG/DL (0.60-1.30)
[2017-12-25 05:24] LABS: AUTOMATED NEUTROPHIL # 4.1 TH/MM3 (1.8-7.7); BASOPHIL % 0.6 % (0.0-2.0); EOSINOPHIL # 0.2 TH/MM3 (0-0.4); EOSINOPHIL % 2.7 % (0.0-4.0); HEMATOCRIT 26.9 % (39.0-51.0); HEMOGLOBIN 9.3 GM/DL (13.0-17.0); LYMPH % 16.4 % (9.0-44.0); LYMPHOCYTE # 0.9 TH/MM3 (1.0-4.8); MEAN CELL VOLUME 89.7 FL (80.0-100.0); MEAN CORPUSCULAR HGB CONC 34.5 % (32.0-36.0); MEAN PLATELET VOLUME 7.9 FL (7.0-11.0); MONO % 7.2 % (0.0-8.0); MONOCYTE # 0.4 TH/MM3 (0-0.9); NEUT % 73.1 % (16.0-70.0); PLATELET COUNT 282 TH/MM3 (150-450); RED CELL DISTRIBUTION WIDTH 12.4 % (11.6-17.2); WHITE BLOOD COUNT 5.6 TH/MM3 (4.0-11.0)
--- NOTE | 2017-12-25 07:55 | HHI.PR ---
Subjective Remarks The patient is walking in the hallways with a walker. He reports he has some pain in his left knee. No fever or chills overnight. Denies chest pain or shortness of breath no palpitations, lightheadedness. Nausea, vomiting, diarrhea or constipation. Satting well on room air. No tachycardia. Objective Vitals Vital Signs Date Time Temp Pulse Resp B/P (MAP) Pulse Ox O2 Delivery O2 Flow Rate FiO2 12/25/17 06:00 75 12/25/17 05:00 82 12/25/17 04:00 79 12/25/17 03:00 99.2 79 131/74 (93) 98 12/25/17 03:00 76 12/25/17 02:00 76 12/25/17 01:00 68 12/25/17 00:00 66 12/24/17 23:00 70 12/24/17 23:00 99.8 80 129/73 (91) 97 12/24/17 22:10 16 12/24/17 22:00 78 12/24/17 21:00 80 12/24/17 20:00 80 12/24/17 19:00 98.9 80 124/70 (88) 98 12/24/17 19:00 86 12/24/17 18:19 82 12/24/17 17:16 72 12/24/17 16:00 121 12/24/17 15:31 80 12/24/17 15:31 99.5 97 16 132/69 (90) 98 12/24/17 14:06 89 12/24/17 13:08 87 12/24/17 12:00 119 12/24/17 11:30 80 12/24/17 11:30 98.2 88 16 121/60 (80) 100 12/24/17 10:36 88 122/69 12/24/17 10:09 87 12/24/17 09:12 88 12/24/17 08:00 77 12/24/17 08:00 100 Room Air 12/24/17 08:00 98.4 77 18 122/70 (87) 100 I/O 12/24/17 12/24/17 12/24/17 12/25/17 12/25/17 12/25/17 07:00 15:00 23:00 07:00 15:00 23:00 Intake Total 1321 ml 233 ml 2036.5 ml 1251 ml Output Total 650 ml 1100 ml 1350 ml Balance 671 ml 233 ml 936.5 ml -99 ml Intake Oral 360 ml 600 ml 200 ml IV Total 961 ml 233 ml 1436.5 ml 1051 ml Output Urine Total 650 ml 1100 ml 1350 ml # Voids 1 # Bowel Movements 1 2 Result Diagram: 12/25/17 0437 12/25/17 0437 Imaging Last Impressions Lower Extremity Ultrasound 12/24/17 0000 Signed Impressions: Service Date/Time: Sunday, December 24, 2017 10:25 - CONCLUSION: Normal examination. Holly Cotter MD Chest X-Ray 12/23/17 1412 Signed Impressions: Service Date/Time: Saturday, December 23, 2017 14:38 - CONCLUSION: No acute disease. No significant change has occurred. Eduar Malik MD CT Angiography 12/23/17 0000 Signed Impressions: Service Date/Time: Saturday, December 23, 2017 15:41 - CONCLUSION: Findings suggesting luminal defect thrombus subsegmental lateral aspect of the right lower lobe pulmonary artery basilar segment. Calcification left anterior descending coronary artery. 4 mm noncalcified pulmonary nodule right upper lobe anteriorly requiring [address] scan Eduar Malik MD Objective Remarks GENERAL: Awake, alert, pleasant 67-year-old male who appears his stated age and is in no acute respiratory distress. CARDIOVASCULAR: Regular, tachycardic with a heart rate in the 140s. No audible murmur noted. RESPIRATORY: No accessory muscle use. Clear to auscultation. Breath sounds equal bilaterally. GASTROINTESTINAL: Abdomen soft, non-tender, nondistended. No rebound tenderness. MUSCULOSKELETAL: Steri-Strips in place of the anterior aspect left knee over scar. Edema noted in the left knee and left lower extremity including left foot. NEUROLOGICAL: Awake and alert. No obvious cranial nerve deficits. Motor grossly within normal limits. Normal speech. Nonfocal. Oriented 4. PSYCHIATRIC: Appropriate mood and affect; insight and judgment normal. A/P Assessment and Plan Pulmonary Emboli the patient was discharged on Apixaban, at this time also with Tachycardia like when he was discharged from this facility two days ago, giving heparin. Embolism of the Right lower lobe as per [facility] [place] Orthopedic surgery recommended for admission Tachycardia, SVT given Cardizem and Metoprolol by ER physician at this time continue with Heart rate in 129 giving metoprolol IV and following, also will start Metoprolol XL, consult business support specialist, appreciate recommendations. Status post left Total knee arthroplasty, at this time with some erythema and edema, changes in calor and rubor, asked for Orthopedic Surgery and PT evaluation. has mild erythema on the foreleg but not on surgical area, asked for lactic acid, afebrile and no leukocytosis will follow off antibiotics by now and follow Orthopedic surgery recommendations Continue IV antibiotics DM II on hold home medicines continue sliding scale. Hypertension controlled will place on hold ARB and Diuretic due to Acute kidney injury Alcohol abuse: not drinking due to recent discharge and no need for CIWA protocol at this time Acute kidney injury giving gentle diuresis and on hold ARB and diuretics. DVT prophylaxis with heparin. PT consult Cardiology consult Blood cultures pending, ff Orthopedic surgery consult. Code Status Full code. Discussed Condition With Patient, nurse Michelle Sterling MD Dec 25, 2017 07:55
[2017-12-25] MEDS: INSULIN ASPART SUPPLEMENTAL SCALE SQ SCH ×4 (08:00→21:08)
--- NOTE | 2017-12-25 08:26 | PD.CARD.PN ---
Subjective Subjective Remarks Telemetry currently with NSR rate 76. The patient denies any chest pain or pain with breathing. No shortness of breath or palpitations. Found to have PE on chest CT yesterday. Objective Medications Current Medications Medications (Trade) Dose Ordered Sig/Magalie Route Start Time Stop Time Status Last Admin (Heparin Inj) 5,000 units UNSCH PRN IV 12/23/17 22:30 (Heparin Inj) 2,500 units UNSCH PRN IV 12/23/17 22:30 12/25/17 01:22 Heparin Sodium/ Dextrose 250 ml @ 10 mls/hr TITRATE PRN IV 12/23/17 16:30 12/24/17 13:34 (NS Flush) 2 ml UNSCH PRN IV FLUSH 12/23/17 16:45 (NS Flush) 2 ml BID IV FLUSH 12/23/17 21:00 12/24/17 19:39 (Tylenol) 650 mg Q4H PRN PO 12/23/17 16:45 (Zofran Inj) 4 mg Q6H PRN IVP 12/23/17 16:45 (Narcan Inj) 0.4 mg UNSCH PRN IV PUSH 12/23/17 16:45 (Senokot) 17.2 mg Q12H PRN PO 12/23/17 16:45 (Dulcolax Supp) 10 mg DAILY PRN RECTAL 12/23/17 16:45 (Lactulose Liq) 30 ml DAILY PRN PO 12/23/17 16:45 (Tricor) 145 mg DAILY PO 12/24/17 09:00 12/24/17 08:23 ([place] 5-325 Mg) 1 tab Q6H PRN PO 12/23/17 17:15 12/24/17 21:01 (Slo-Niacin) 1,000 mg HS PO 12/23/17 21:00 12/24/17 21:01 (NovoLOG SUPPLEMENTAL SCALE) 1 ACHS SLIDING SCALE SQ 12/23/17 17:00 12/24/17 22:09 Sodium Chloride 1,000 ml @ 84 mls/hr [id number] IV 12/23/17 18:00 12/24/17 21:00 Pharmacy Profile Note 0 ml @ 0 mls/hr UNSCH OTHER 12/23/17 19:00 Cefepime HCl 1000 mg/Sodium Chloride 100 ml @ 200 mls/hr Q12H IV 12/23/17 20:00 12/24/17 19:40 Vancomycin HCl 1250 mg/Sodium Chloride 262.5 ml @ 250 mls/hr Q24H IV 12/24/17 22:00 12/24/17 21:00 Miscellaneous Information SPECIFIC LAB TO BE VIVI... ONCE ONCE .XX 12/26/17 21:45 12/26/17 21:46 (Lopressor) 100 mg Q12HR PO 12/24/17 09:30 12/24/17 21:01 (Cordarone) 200 mg Q12HR PO 12/24/17 09:30 12/24/17 21:01 (Eliquis) 5 mg BID PO 12/25/17 09:00 UNV Vital Signs / I&O Vital Signs Date Time Temp Pulse Resp B/P (MAP) Pulse Ox O2 Delivery O2 Flow Rate FiO2 12/25/17 06:00 75 12/25/17 05:00 82 12/25/17 04:00 79 12/25/17 03:00 99.2 79 131/74 (93) 98 12/25/17 03:00 76 12/25/17 02:00 76 12/25/17 01:00 68 12/25/17 00:00 66 12/24/17 23:00 70 12/24/17 23:00 99.8 80 129/73 (91) 97 12/24/17 22:10 16 12/24/17 22:00 78 12/24/17 21:00 80 12/24/17 20:00 80 12/24/17 19:00 98.9 80 124/70 (88) 98 12/24/17 19:00 86 12/24/17 18:19 82 12/24/17 17:16 72 12/24/17 16:00 121 12/24/17 15:31 80 12/24/17 15:31 99.5 97 16 132/69 (90) 98 12/24/17 14:06 89 12/24/17 13:08 87 12/24/17 12:00 119 12/24/17 11:30 80 12/24/17 11:30 98.2 88 16 121/60 (80) 100 12/24/17 10:36 88 122/69 12/24/17 10:09 87 12/24/17 09:12 88 I/O 12/24/17 12/24/17 12/24/17 12/25/17 12/25/17 12/25/17 07:00 15:00 23:00 07:00 15:00 23:00 Intake Total 1321 ml 233 ml 2036.5 ml 1251 ml Output Total 650 ml 1100 ml 1350 ml Balance 671 ml 233 ml 936.5 ml -99 ml Intake Oral 360 ml 600 ml 200 ml IV Total 961 ml 233 ml 1436.5 ml 1051 ml Output Urine Total 650 ml 1100 ml 1350 ml # Voids 1 # Bowel Movements 1 2 Physical Exam GENERAL: Well-developed well-nourished. In no acute distress. NECK: No carotid bruits. No JVD. CARDIOVASCULAR: Regular rate and rhythm. No murmur appreciated. RESPIRATORY: No accessory muscle use. Clear to auscultation. Breath sounds equal bilaterally. MUSCULOSKELETAL: Left knee postoperative with some left lower extremity swelling. No edema on the right. NEUROLOGICAL: Awake and alert. Normal speech. Laboratory Laboratory Tests Test 12/24/17 18:02 12/25/17 00:19 12/25/17 04:37 Activated Partial Thromboplast Time 29.6 SEC 31.9 SEC 38.3 SEC White Blood Count 5.6 TH/MM3 Red Blood Count 3.00 MIL/MM3 Hemoglobin 9.3 GM/DL Hematocrit 26.9 % Mean Corpuscular Volume 89.7 FL Mean Corpuscular Hemoglobin 31.0 PG Mean Corpuscular Hemoglobin Concent 34.5 % Red Cell Distribution Width 12.4 % Platelet Count 282 TH/MM3 Mean Platelet Volume 7.9 FL Neutrophils (%) (Auto) 73.1 % Lymphocytes (%) (Auto) 16.4 % Monocytes (%) (Auto) 7.2 % Eosinophils (%) (Auto) 2.7 % Basophils (%) (Auto) 0.6 % Neutrophils # (Auto) 4.1 TH/MM3 Lymphocytes # (Auto) 0.9 TH/MM3 Monocytes # (Auto) 0.4 TH/MM3 Eosinophils # (Auto) 0.2 TH/MM3 Basophils # (Auto) 0.0 TH/MM3 CBC Comment DIFF FINAL Differential Comment Hematology Comments Blood Urea Nitrogen 23 MG/DL Creatinine 1.34 MG/DL Random Glucose 132 MG/DL Calcium Level 8.3 MG/DL Sodium Level 140 MEQ/L Potassium Level 4.2 MEQ/L Chloride Level 107 MEQ/L Carbon Dioxide Level 23.9 MEQ/L Anion Gap 9 MEQ/L Estimat Glomerular Filtration Rate 53 ML/MIN Imaging Last Impressions Lower Extremity Ultrasound 12/24/17 0000 Signed Impressions: Service Date/Time: Sunday, December 24, 2017 10:25 - CONCLUSION: Normal examination. Holly Cotter MD Chest X-Ray 12/23/17 1412 Signed Impressions: Service Date/Time: Saturday, December 23, 2017 14:38 - CONCLUSION: No acute disease. No significant change has occurred. Eduar Malik MD CT Angiography 12/23/17 0000 Signed Impressions: Service Date/Time: Saturday, December 23, 2017 15:41 - CONCLUSION: Findings suggesting luminal defect thrombus subsegmental lateral aspect of the right lower lobe pulmonary artery basilar segment. Calcification left anterior descending coronary artery. 4 mm noncalcified pulmonary nodule right upper lobe anteriorly requiring [address] scan Eduar Malik MD Assessment and Plan Assessment and Plan This is a 67-year-old gentleman who is admitted to the hospital for tachycardia. He recently underwent a left knee replacement and his hospital course was complicated by recurrence of atrial tachycardia. He was initially treated with metoprolol and with the addition of amiodarone with fairly good control. He was discharged from the hospital and these were not continued. He has had recurrence of his tachycardia and is re-admitted. He was also begun on a short course of Eliquis postoperatively. He has had no chest pain or shortness of breath. Since his admission to the hospital he has been started on 25 mg of metoprolol succinate daily. He is currently in sinus rhythm, but does note that he has had periods of sinus tachycardia and/or atrial tachycardia since his admission. Atrial tachycardia: Currently in NSR on metoprolol and amiodarone. PE: Currently on heparin gtt, resume Eliquis. Mann Schwarz Dec 25, 2017 08:26
[2017-12-25] MEDS ORDERED: APIXABAN 5 MG TABLET PO ONE (09:00)
[2017-12-25] MEDS: FENOFIBRATE 145 MG TAB PO SCH (09:24)
[2017-12-25] MEDS: ACETAMINOPHEN/HYDROcodone 325 MG/5 MG TAB PO PRN ×2 (09:24→18:24)
[2017-12-25] MEDS: AMIODARONE 200 MG TAB PO SCH ×2 (09:24→21:09)
[2017-12-25] MEDS: SODIUM CHLORIDE 0.9% FLUSH 10 ML FLUSH IV FLUSH SCH ×2 (09:24→21:19)
[2017-12-25] MEDS: METOPROLOL TARTRATE 100 MG TAB PO SCH ×2 (09:24→21:08)
[2017-12-25] MEDS: CEFEPIME INJ 1,000 MG in SODIUM CHLORIDE 0.9% INJ 100 ML IV SCH ×2 (09:25→21:07)
[2017-12-25] MEDS: SODIUM CHLOR 0.9% 1000 ML INJ 1,000 ML IV SCH ×2 (09:26→21:10)
[2017-12-25] MEDS: HEPARIN-D5W 25,000 U/250 ML 250 ML IV PRN (09:27)
--- NOTE | 2017-12-25 10:35 | MB ---
cc: Yovana QUEEN M.D. DATE OF CONSULTATION: 12/25/2017 REASON FOR CONSULTATION One week status post left total knee, re-admitted with pulmonary embolus. HISTORY OF PRESENT ILLNESS This is a pleasant 67-year-old diabetic male who was re-admitted over the weekend for a pulmonary embolus. He is one week status post left total knee arthroplasty. Today he is sitting comfortably in a chair. He states he is doing better. Talking to the nurse he has been up ambulating. OTHER PAST HISTORY Other than diabetes unremarkable. He has a high pulse rate but states back in the 70s and 80s. EXAMINATION Orthopedically with his vital signs are stable. He is afebrile. His left leg wound is healing well. No evidence of inflammation or infection today. It is minimally warm, to the left calf slight calf tenderness laterally. Neurovascularly intact to his toes. IMPRESSION AT THIS TIME One week status post left total knee arthroplasty, re-admitted for heart rate problems and pulmonary embolus. The patient is on antibiotics. I would suggest keeping him on antibiotics. The patient states that when he went home he went out to see his baby goats with his fresh wound. PLAN Once the patient is medically discharged he will follow up in the office for recheck. Continue with physical therapy in the interim. MD ZOE Coronel/TLL /10:10 AM /10:22 AM
[2017-12-25] MEDS: VANCOMYCIN INJ 1,250 MG in SODIUM CHLOR 0.9% 250 ML INJ 250 ML IV SCH (21:07)
[2017-12-25] MEDS: APIXABAN 5 MG TABLET PO SCH (21:08)
[2017-12-25] MEDS: NIACIN 500 MG EXTENDED RELEASE TAB PO SCH (21:08)
[2017-12-26] VITALS (15 sets, daily range): BP systolic 118–136; BP diastolic 66–77; PULSE 58–111; RESP 16; TEMP 98.5–98.8; O2SAT 96–99
[2017-12-26 05:13] LABS: BASOPHIL % 0.7 % (0.0-2.0); EOSINOPHIL # 0.1 TH/MM3 (0-0.4); EOSINOPHIL % 2.5 % (0.0-4.0); HEMOGLOBIN 7.6 GM/DL (13.0-17.0); LYMPH % 13.5 % (9.0-44.0); LYMPHOCYTE # 0.7 TH/MM3 (1.0-4.8); MEAN CELL VOLUME 90.3 FL (80.0-100.0); MEAN CORPUSCULAR HEMOGLOBIN 31.3 PG (27.0-34.0); MEAN CORPUSCULAR HGB CONC 34.6 % (32.0-36.0); MEAN PLATELET VOLUME 7.2 FL (7.0-11.0); MONO % 7.6 % (0.0-8.0); MONOCYTE # 0.4 TH/MM3 (0-0.9); NEUT % 75.7 % (16.0-70.0); PLATELET COUNT 310 TH/MM3 (150-450); RED BLOOD COUNT 2.44 MIL/MM3 (4.50-5.90); RED CELL DISTRIBUTION WIDTH 12.4 % (11.6-17.2); WHITE BLOOD COUNT 5.3 TH/MM3 (4.0-11.0)
[2017-12-26] MEDS: SODIUM CHLOR 0.9% 1000 ML INJ 1,000 ML IV SCH (05:35)
[2017-12-26 05:38] LABS: BICARBONATE 23.6 MEQ/L (21.0-32.0); CALCIUM 8.2 MG/DL (8.5-10.1); CREATININE 1.24 MG/DL (0.60-1.30)
--- NOTE | 2017-12-26 07:49 | PD.CARD.PN ---
Subjective Subjective Remarks Feels well. Anxious to go home Objective Medications Current Medications Medications (Trade) Dose Ordered Sig/Magalie Route Start Time Stop Time Status Last Admin (NS Flush) 2 ml UNSCH PRN IV FLUSH 12/23/17 16:45 (NS Flush) 2 ml BID IV FLUSH 12/23/17 21:00 12/25/17 21:19 (Tylenol) 650 mg Q4H PRN PO 12/23/17 16:45 (Zofran Inj) 4 mg Q6H PRN IVP 12/23/17 16:45 (Narcan Inj) 0.4 mg UNSCH PRN IV PUSH 12/23/17 16:45 (Senokot) 17.2 mg Q12H PRN PO 12/23/17 16:45 (Dulcolax Supp) 10 mg DAILY PRN RECTAL 12/23/17 16:45 (Lactulose Liq) 30 ml DAILY PRN PO 12/23/17 16:45 (Tricor) 145 mg DAILY PO 12/24/17 09:00 12/25/17 09:24 ([place] 5-325 Mg) 1 tab Q6H PRN PO 12/23/17 17:15 12/25/17 18:24 (Slo-Niacin) 1,000 mg HS PO 12/23/17 21:00 12/25/17 21:08 (NovoLOG SUPPLEMENTAL SCALE) 1 ACHS SLIDING SCALE SQ 12/23/17 17:00 12/25/17 21:08 Sodium Chloride 1,000 ml @ 84 mls/hr [id number] IV 12/23/17 18:00 12/25/17 21:10 Pharmacy Profile Note 0 ml @ 0 mls/hr UNSCH OTHER 12/23/17 19:00 Cefepime HCl 1000 mg/Sodium Chloride 100 ml @ 200 mls/hr Q12H IV 12/23/17 20:00 12/25/17 21:07 Vancomycin HCl 1250 mg/Sodium Chloride 262.5 ml @ 250 mls/hr Q24H IV 12/24/17 22:00 12/25/17 21:07 Miscellaneous Information SPECIFIC LAB TO BE VIVI... ONCE ONCE .XX 12/26/17 21:45 12/26/17 21:46 (Lopressor) 100 mg Q12HR PO 12/24/17 09:30 12/25/17 21:08 (Cordarone) 200 mg Q12HR PO 12/24/17 09:30 12/25/17 21:09 (Eliquis) 5 mg BID PO 12/25/17 21:00 12/25/17 21:08 Vital Signs / I&O Vital Signs Date Time Temp Pulse Resp B/P (MAP) Pulse Ox O2 Delivery O2 Flow Rate FiO2 12/26/17 07:00 66 12/26/17 06:00 67 12/26/17 05:00 111 12/26/17 04:00 71 12/26/17 03:00 65 12/26/17 03:00 98.8 72 16 129/66 (87) 96 12/26/17 02:00 64 12/26/17 01:00 100 12/26/17 00:00 100 12/25/17 23:00 100.4 61 16 120/66 (84) 94 12/25/17 23:00 100 12/25/17 22:00 62 12/25/17 21:00 66 12/25/17 20:00 76 12/25/17 19:00 114 12/25/17 19:00 100.4 81 16 118/66 (83) 97 12/25/17 18:00 74 12/25/17 17:00 106 12/25/17 16:00 111 12/25/17 15:00 98.2 68 17 129/65 (86) 100 12/25/17 15:00 63 12/25/17 14:00 74 12/25/17 13:00 72 12/25/17 12:00 98 12/25/17 11:00 67 12/25/17 11:00 98.3 69 17 108/65 (79) 99 12/25/17 10:59 19 12/25/17 10:00 78 12/25/17 09:00 82 12/25/17 08:44 99 21 12/25/17 08:00 74 I/O 12/25/17 12/25/17 12/25/17 12/26/17 12/26/17 12/26/17 07:00 15:00 23:00 07:00 15:00 23:00 Intake Total 1251 ml 145 ml 2400 ml 1408 ml Output Total 1350 ml 750 ml 1280 ml Balance -99 ml 145 ml 1650 ml 128 ml Intake Oral 200 ml 960 ml 500 ml IV Total 1051 ml 145 ml 1440 ml 908 ml Output Urine Total 1350 ml 750 ml 1280 ml Laboratory Laboratory Tests Test 12/25/17 13:00 12/26/17 04:26 Activated Partial Thromboplast Time 27.4 SEC White Blood Count 5.3 TH/MM3 Red Blood Count 2.44 MIL/MM3 Hemoglobin 7.6 GM/DL Hematocrit 22.0 % Mean Corpuscular Volume 90.3 FL Mean Corpuscular Hemoglobin 31.3 PG Mean Corpuscular Hemoglobin Concent 34.6 % Red Cell Distribution Width 12.4 % Platelet Count 310 TH/MM3 Mean Platelet Volume 7.2 FL Neutrophils (%) (Auto) 75.7 % Lymphocytes (%) (Auto) 13.5 % Monocytes (%) (Auto) 7.6 % Eosinophils (%) (Auto) 2.5 % Basophils (%) (Auto) 0.7 % Neutrophils # (Auto) 4.0 TH/MM3 Lymphocytes # (Auto) 0.7 TH/MM3 Monocytes # (Auto) 0.4 TH/MM3 Eosinophils # (Auto) 0.1 TH/MM3 Basophils # (Auto) 0.0 TH/MM3 CBC Comment DIFF FINAL Differential Comment Blood Urea Nitrogen 18 MG/DL Creatinine 1.24 MG/DL Random Glucose 124 MG/DL Calcium Level 8.2 MG/DL Sodium Level 140 MEQ/L Potassium Level 4.1 MEQ/L Chloride Level 109 MEQ/L Carbon Dioxide Level 23.6 MEQ/L Anion Gap 7 MEQ/L Estimat Glomerular Filtration Rate 59 ML/MIN Assessment and Plan Assessment and Plan No episodes of tachycardia. OK to D/C. Rx written for metoprolol 100 mg bid, amiodarone 200 mg daily, and eliquis 5 mg bid Delmer Mcneil MD Dec 26, 2017 07:49
[2017-12-26] MEDS: INSULIN ASPART SUPPLEMENTAL SCALE SQ SCH ×2 (08:00→12:00)
[2017-12-26] MEDS: SODIUM CHLORIDE 0.9% FLUSH 10 ML FLUSH IV FLUSH SCH (09:12)
[2017-12-26] MEDS: FENOFIBRATE 145 MG TAB PO SCH (09:12)
[2017-12-26] MEDS ORDERED: AMIO200T PO (09:13)
[2017-12-26] MEDS: METOPROLOL TARTRATE 100 MG TAB PO SCH (09:13)
[2017-12-26] MEDS ORDERED: HYDR-4107 PO (09:13)
[2017-12-26] MEDS: APIXABAN 5 MG TABLET PO SCH (09:13)
[2017-12-26] MEDS: AMIODARONE 200 MG TAB PO SCH (09:13)
[2017-12-26] MEDS ORDERED: APIX5TAB PO (09:13)
[2017-12-26] MEDS ORDERED: METO-338 PO (09:13)
--- NOTE | 2017-12-26 09:15 | HHI.DS ---
Discharge Summary Admission Date Dec 23, 2017 at 16:40 Discharge Date: Dec 26, 2017 Admitting Diagnosis Pulmonary embolism (1) Pulmonary embolism ICD Code: I26.99 - Other pulmonary embolism without acute cor pulmonale (2) Status post total left knee replacement ICD Code: Z96.652 - Presence of left artificial knee joint (3) Osteoarthritis of left knee ICD Code: M17.12 - Unilateral primary osteoarthritis, left knee (4) Osteoarthritis of right knee ICD Code: M17.11 - Unilateral primary osteoarthritis, right knee Status: Acute (5) Cervical radiculopathy ICD Code: M54.12 - Radiculopathy, cervical region Status: Acute (6) Hypertension ICD Code: I10 - Essential (primary) hypertension Status: Acute (7) Diabetes ICD Code: E11.9 - Type 2 diabetes mellitus without complications Status: Acute (8) Tachycardia ICD Code: R00.0 - Tachycardia, unspecified Procedures No procedures Brief History - From Admission This is a pleasant 67 y/o male with complaint of tachycardia, The patient states he just recently underwent left knee replacement by his orthopedist, Dr. Bobby. Patient was just discharged from the hospital yesterday after admission to the intensive care unit for tachycardia. The patient states that they gave him medications twice that stopped his heart, he did not like the feeling of those medications. The patient's subsequent discharged home. However, he noticed earlier today is heart rate was elevated, he started walking , and his heart rate increased. He does complain of mild palpitations and some chest discomfort without any outright shortness of breath. He denies any lightheadedness, dizziness, or presyncopal symptoms. He does have a history of hypertension and hyperlipidemia. he was recently discharged from this facility two days ago, December 21 2017 admitted December 18, with Diagnosis of osteoarthritis degenerative left knee status post Left Total knee replacement, on Apixaban, was found to have Pulmonary Emboli, started on Heparin drip, discussed with patient and relatives he will be seen by Orthopedic surgery while in house, also continue with Tachycardia probably related to his Pulmonary Emboli, was given Cardizem and Metoprolol he was seen by Doctor Minor customer operations specialist will back to consult Cardiology on this admission. CBC/BMP: 12/26/17 0426 12/26/17 0426 Significant Findings Laboratory Tests Test 12/23/17 14:15 12/23/17 16:50 12/23/17 19:00 12/24/17 00:19 Red Blood Count 3.36 MIL/MM3 (4.50-5.90) Hemoglobin 10.4 GM/DL (13.0-17.0) Hematocrit 30.1 % (39.0-51.0) Neutrophils (%) (Auto) 75.2 % (16.0-70.0) Blood Urea Nitrogen 27 MG/DL (7-18) Creatinine 1.51 MG/DL (0.60-1.30) Random Glucose 183 MG/DL (74-106) Sodium Level 134 MEQ/L (136-145) Estimat Glomerular Filtration Rate 47 ML/MIN (>89) Troponin I LESS THAN 0.02 NG/ML LESS THAN 0.02 NG/ML Test 12/24/17 04:04 12/24/17 08:10 12/24/17 18:02 12/25/17 00:19 Red Blood Count 2.91 MIL/MM3 (4.50-5.90) Hemoglobin 9.2 GM/DL (13.0-17.0) Hematocrit 26.0 % (39.0-51.0) Monocytes (%) (Auto) 8.4 % (0.0-8.0) Blood Urea Nitrogen 29 MG/DL (7-18) Creatinine 1.33 MG/DL (0.60-1.30) Random Glucose 121 MG/DL (74-106) Calcium Level 8.4 MG/DL (8.5-10.1) Estimat Glomerular Filtration Rate 54 ML/MIN (>89) Hemoglobin A1c 6.1 % (4.3-6.0) Troponin I LESS THAN 0.02 NG/ML Triglycerides Level 201 MG/DL (42-150) HDL Cholesterol 37.8 MG/DL (40.0-60.0) Activated Partial Thromboplast Time 30.3 SEC (24.3-30.1) 31.9 SEC (24.3-30.1) Test 12/25/17 04:37 12/25/17 13:00 12/26/17 04:26 Red Blood Count 3.00 MIL/MM3 (4.50-5.90) 2.44 MIL/MM3 (4.50-5.90) Hemoglobin 9.3 GM/DL (13.0-17.0) 7.6 GM/DL (13.0-17.0) Hematocrit 26.9 % (39.0-51.0) 22.0 % (39.0-51.0) Neutrophils (%) (Auto) 73.1 % (16.0-70.0) 75.7 % (16.0-70.0) Lymphocytes # (Auto) 0.9 TH/MM3 (1.0-4.8) 0.7 TH/MM3 (1.0-4.8) Activated Partial Thromboplast Time 38.3 SEC (24.3-30.1) Blood Urea Nitrogen 23 MG/DL (7-18) Creatinine 1.34 MG/DL (0.60-1.30) Random Glucose 132 MG/DL (74-106) 124 MG/DL (74-106) Calcium Level 8.3 MG/DL (8.5-10.1) 8.2 MG/DL (8.5-10.1) Estimat Glomerular Filtration Rate 53 ML/MIN (>89) 59 ML/MIN (>89) Chloride Level 109 MEQ/L (98-107) Imaging Last Impressions Lower Extremity Ultrasound 12/24/17 0000 Signed Impressions: Service Date/Time: Sunday, December 24, 2017 10:25 - CONCLUSION: Normal examination. Holly Cotter MD Chest X-Ray 12/23/17 1412 Signed Impressions: Service Date/Time: Saturday, December 23, 2017 14:38 - CONCLUSION: No acute disease. No significant change has occurred. Eduar Malik MD CT Angiography 12/23/17 0000 Signed Impressions: Service Date/Time: Saturday, December 23, 2017 15:41 - CONCLUSION: Findings suggesting luminal defect thrombus subsegmental lateral aspect of the right lower lobe pulmonary artery basilar segment. Calcification left anterior descending coronary artery. 4 mm noncalcified pulmonary nodule right upper lobe anteriorly requiring [address] scan Eduar Malik MD PE at Discharge GENERAL: Awake, alert, pleasant 67-year-old male who appears his stated age and is in no acute respiratory distress. CARDIOVASCULAR: Regular, tachycardic with a heart rate in the 140s. No audible murmur noted. RESPIRATORY: No accessory muscle use. Clear to auscultation. Breath sounds equal bilaterally. GASTROINTESTINAL: Abdomen soft, non-tender, nondistended. No rebound tenderness. MUSCULOSKELETAL: Steri-Strips in place of the anterior aspect left knee over scar. Edema noted in the left knee and left lower extremity including left foot. NEUROLOGICAL: Awake and alert. No obvious cranial nerve deficits. Motor grossly within normal limits. Normal speech. Nonfocal. Oriented 4. PSYCHIATRIC: Appropriate mood and affect; insight and judgment normal. Pt update on day of discharge The patient is in the chair. Awaiting to walk with physical therapy. Says he is doing better today. No chest pain or shortness of breath, no palpitations. She is saturating well on room air. No nausea or vomiting no diarrhea constipation. The patient feels much better and he wants to go home today. Hospital Course This is a pleasant 67 y/o male who came to the emergency room with complaint of tachycardia, The patient states he just recently underwent left knee replacement by his orthopedist, Dr. Bobby. Patient with osteoarthritis degenerative left knee status post Left Total knee replacement, on Apixaban, was found to have Pulmonary Emboli, started on Heparin drip, discussed with patient and relatives he will be seen by Orthopedic surgery while in house, also continue with Tachycardia probably related to his Pulmonary Emboli, was given Cardizem and Metoprolol he was seen by Doctor Moises customer operations specialist. Heart rate better improved. The patient was also started on antibiotics. I discussed with Dr. Bobby orthopedic doctor cleared patient for discharge, patient to have Keflex as outpatient. Patient improved. Discharge home in stable condition to follow-up with PCP in consultants. Pulmonary Emboli the patient was discharged on Apixaban, at this time also with Tachycardia like when he was discharged from this facility two days ago, giving heparin. Embolism of the Right lower lobe as per RATNA Kim Orthopedic surgery recommended for admission Tachycardia, SVT given Cardizem and Metoprolol by ER physician at this time continue with Heart rate in 129 giving metoprolol IV and following, also will start Metoprolol XL, consult customer operations specialist, appreciate recommendations. Status post left Total knee arthroplasty, at this time with some erythema and edema, changes in calor and rubor, asked for Orthopedic Surgery and PT evaluation. has mild erythema on the foreleg but not on surgical area, asked for lactic acid, afebrile and no leukocytosis will follow off antibiotics by now and follow Orthopedic surgery recommendations Continue IV antibiotics DM II on hold home medicines continue sliding scale. Hypertension controlled will place on hold ARB and Diuretic due to Acute kidney injury Alcohol abuse: not drinking due to recent discharge and no need for CIWA protocol at this time Acute kidney injury giving gentle diuresis and on hold ARB and diuretics. DVT prophylaxis with heparin. PT consult Cardiology consult Blood cultures pending, ff Orthopedic surgery consult. Code Status Full code. Discussed Condition With Patient, nurse, Dr. Bobby orthopedic doctor Pt Condition on Discharge: Stable Discharge Disposition: Disch w/ Home Health Serv Discharge Time: > 30 minutes Discharge Instructions DIET: Follow Instructions for: Heart Healthy Diet, Diabetic Diet Activities you can perform: Weight Bearing as [place] Follow up Referrals: Cardiology - 2 Weeks with Delmer Mcneil MD Orthopedics - 2 Weeks with Yovana Bobby MD PCP Follow-up - 2-3 Days with Carmela Ramirez Jr, Md Address: [address] [place], [place] [id number] New Medications: Cephalexin (Keflex) 500 Mg Capsule 500 MG PO TID for Infection for 14 Days, CAP 0 Refills Ferrous Sulfate (Ferrous Sulfate) 325 Mg (65 Mg Iron) Tablet 325 MG PO BIDPC for Nutritional Supplement, #60 TAB 0 Refills Sennosides-Docusate Sodium (Senna-Plus) 8.6-50 Mg Tab 2 TAB PO DAILY for Constipation, #60 TAB 0 Refills Amiodarone (Amiodarone) 200 Mg Tab 200 MG PO Q12HR for afib, #60 TAB Metoprolol Tartrate (Lopressor) 100 Mg Tab 100 MG PO Q12HR for afib, #120 TAB Changed Medications: Apixaban (Eliquis) 5 Mg Tab 5 MG PO BID for Blood Clot Prevention, #60 TAB 0 Refills (Changed from: Unknown Dose ) Continued Medications: Fenofibric Acid (Fenofibric Acid) 105 Mg Tab 135 MG PO DAILY Glyburide (Glyburide) 2.5 Mg Tab 2.5 MG PO BID for Blood Sugar Management, #60 TAB 0 Refills Take with meals at the same time each day Hydrochlorothiazide (Hydrochlorothiazide) 25 Mg Tab 25 MG PO DAILY, #30 TAB 0 Refills Hydrocodone-Acetaminophen (Hydrocodone-Acetaminophen) 5-300 Mg Tab 1 TAB PO Q6H PRN for PAIN, #30 TAB 0 Refills (This prescription has been renewed ) Metformin (Metformin) 500 Mg Tab 500 MG PO BIDPC for Blood Sugar Management, #60 TAB 0 Refills With meals Niacin ER (Niacin ER) 1,000 Mg Tab 1000 MG PO HS for Cholesterol Management, #30 TAB 0 Refills Telmisartan (Telmisartan) 40 Mg Tab 80 MG PO DAILY for Blood Pressure Management, #30 TAB 0 Refills Michelle Sterling MD Dec 26, 2017 09:15
--- NOTE | 2017-12-26 09:18 | HHI.FF ---
Face to Face Verification Diagnosis: (1) Tachycardia (2) Pulmonary embolism (3) Diabetes (4) Hypertension (5) Status post total left knee replacement Physical Therapy Order: Evaluate and Treat Home Health Nursing Order: Medical education Signs/symptoms of disease process Diabetic education Medication education-adverse effect Nursing assessment with vital signs I have seen patient Santi Cummings on 12/26/17. My clinical findings support the need for the requested home health care services because: Ltd mobility - disease progression Patient has SOB I certify that my clinical findings support that this patient is homebound because: Post-op weakness Unsteady gait/balance Michelle Sterling MD Dec 26, 2017 09:18
[2017-12-26] MEDS: CEFEPIME INJ 1,000 MG in SODIUM CHLORIDE 0.9% INJ 100 ML IV SCH (09:19)
[2017-12-26] MEDS: ACETAMINOPHEN/HYDROcodone 325 MG/5 MG TAB PO PRN (10:16)
[2017-12-26] MEDS ORDERED: CEPH-460 PO (10:52)
[2017-12-26] MEDS ORDERED: FERR325T18 PO (10:53)
[2017-12-26] MEDS ORDERED: SENN1TAB PO (10:53)
[2017-12-26] MEDS ORDERED: PHARMACY ORDERED LAB ONE (21:45)
== END 2017-12-26 13:10 | disposition home health service (06) | DRG 176 ==
LOC: NEPE 13:59 → NEDA 16:40 → HCPC 22:12
PROVIDERS: ADMIT Hospitalist; ATTEND Hospitalist
DX: I26.99 Other pulmonary embolism without acute cor pulmonale (principal); N17.9 Acute kidney failure, unspecified; I47.1 Supraventricular tachycardia; E11.9 Type 2 diabetes mellitus without complications; I10 Essential (primary) hypertension; E78.5 Hyperlipidemia, unspecified; R91.1 Solitary pulmonary nodule; M54.12 Radiculopathy, cervical region; F10.10 Alcohol abuse, uncomplicated; Z79.01 Long term (current) use of anticoagulants; Z79.84 Long term (current) use of oral hypoglycemic drugs; Z96.653 Presence of artificial knee joint, bilateral
CPT/HCPCS: 71045; 71275; 80048; 80053; 80061; 81001; 82550; 82552; 82607; 82746; 82948; 83036; 83605; 83735; 84439; 84443; 84484; 85025; 85610; 85730; 87040; 93005; 93971; 96361; 96374; 96375; J0282; J0692; J1644; J1815; J3370; J7030; J7040; J7050; Q9967